=== PATIENT | male | born 1950 | race Caucasian/White ===

== ENCOUNTER → 2020-06-07 11:28 | Outpatient (BNVA) | payer MEDICARE, SELFPAY | PROVIDERS: PCP Internal Medicine; Referring Provider Internal Medicine; Visit Provider Urology | DX: Z76.89 Persons encountering health services in other specified circumstances (principal) | CPT/HCPCS: Q3014 ==

== ENCOUNTER → 2020-09-07 11:28 | Outpatient (BNVA) | payer MEDICARE, SELFPAY | PROVIDERS: PCP Internal Medicine; Visit Provider Urology | DX: Z13.89 Encounter for screening for other disorder (principal) | CPT/HCPCS: Q3014 ==

== ENCOUNTER → 2020-12-08 13:58 | Outpatient (BNVA) | payer MEDICARE, SELFPAY | PROVIDERS: PCP Internal Medicine; Visit Provider Urology | DX: Z13.89 Encounter for screening for other disorder (principal) | CPT/HCPCS: Q3014 ==

== ENCOUNTER → 2021-03-09 13:51 | Outpatient (BNVA) | payer MEDICARE, SELFPAY | PROVIDERS: PCP Internal Medicine; Visit Provider Urology | DX: C61 Malignant neoplasm of prostate (principal) | CPT/HCPCS: Q3014 ==

== ENCOUNTER → 2021-06-09 11:38 | Outpatient (BNVA) | payer MEDICARE, SELFPAY | PROVIDERS: PCP Internal Medicine; Visit Provider Urology | DX: C61 Malignant neoplasm of prostate (principal) | CPT/HCPCS: Q3014 ==

== ENCOUNTER → 2021-10-06 11:26 | Outpatient (BNVA) | payer MEDICARE, SELFPAY | PROVIDERS: PCP Internal Medicine; Visit Provider Urology | DX: C61 Malignant neoplasm of prostate (principal) | CPT/HCPCS: Q3014 ==

== ENCOUNTER → 2022-02-06 13:36 | Outpatient (BNVA) | payer MEDICARE, SELFPAY | PROVIDERS: PCP Internal Medicine; Visit Provider Urology | DX: C61 Malignant neoplasm of prostate (principal) | CPT/HCPCS: Q3014 ==

== ENCOUNTER → 2022-06-05 13:06 | Outpatient (BNVA) | payer MEDICARE, SELFPAY | PROVIDERS: PCP Internal Medicine; Visit Provider Urology | DX: C61 Malignant neoplasm of prostate (principal) | CPT/HCPCS: Q3014 ==

== ENCOUNTER → 2022-10-04 08:31 | Outpatient (BNVA) | payer MEDICARE, SELFPAY | PROVIDERS: PCP Internal Medicine; Visit Provider Urology | DX: C61 Malignant neoplasm of prostate (principal) | CPT/HCPCS: Q3014 ==

== ENCOUNTER 2023-02-05 13:27 | Outpatient (AMB) | payer MEDICARE, SELFPAY ==
--- NOTE | 2023-02-05 13:28 | MHC.OFFVIS ---
Intake Intake Visit Reasons: 4M PSA(set) Intake Note: Patient is present for Telephone PSA Urology Med: None Antibiotic Allergy: None Blood Thinner: none Pharmacy: [facility] Allergies No Known Allergies Allergy (Verified 02/05/23 13:28) Medication List - Last Reconciled 02/05/23 by Trae Mckeon MD atorvastatin mg PO atorvastatin 20 mg PO DAILY escitalopram oxalate 10 mg PO DAILY levothyroxine 175 mcg PO DAILY metformin mg PO valsartan mg PO HPI HPI Comments History of Present Illness Details Zeeshan is a very pleasant male. He is a patient of Dr Rudd. He is seen for the following urologic conditions - prostate cancer Telemedicine evaluation 15 minute consultation Doximity adeel Video attempted PSA stabilization 08/16 PSA 0.8, 01/13 0.5 6m f/u PSA Has occasional urgency and frequency with diet triggers Prostate cancer: Grade 4, high risk. Initial therapy external beam radiation with hormones - 08/13 Prostate cancer was diagnosed 08/13 Dr Mckeon. Diagnosis was reached by needle biopsy, for elevated PSA, PSA at diagnosis 7.3 rise from 5.1 - 1 yr earlier The [place] grade is LMB , 4+4 = 8 20%, RMA , 3+3 = 6 10%, Total 30%/1200% = 2.5% Polaris evaluation 35 percentile for Group 4 TNM Classification of Malignant Tumours (TNM) T1c The D'Navi (NCCN) risk category is has 2 low risk features and 1 high risk features, group 4 Initial therapy included Primary treatment - EXBRT - completed February 2020 - with hormones and 18 months of finasteride - 09/10 GnRH 6 months, 03/03/2020 GnRH 45mg Eligard Imaging included 09/10 a bone scan NAD PSA values - 06/12 PSA 0.1, T< 3, 09/11 PSA 0.1, T < 3, 12/12 PSA <0.1, T 330, 03/14 PSA < 0.1 T 305, 06/13 <0.1 T 340, 09/12 0.1 T 321, 01/12 0.5, 06/14 0.5 PFSH Medical History Elevated PSA Surgical History H/O thyroidectomy Review of Systems Const All systems reviewed & are unremarkable except as noted in HPI and below Reports no additional complaints Resp Reports no additional complaints GI Reports no additional complaints Reports as per HPI Musc Reports no additional complaints Physical Exam Telemedicine evaluation Appropriate responses Regular breathing rate and rhythm HEENT Head: Yes normal to inspection Ears: hearing grossly normal bilaterally Eyes General: appearance normal, both eyes and all related structures Neck Neck: Yes normal visual inspection Chest Chest palpation & inspection: normal inspection of the chest Resp Effort & Inspection: normal respiratory effort and able to speak in complete sentences Assessment & Plan Assessment & Plan (1) Prostate cancer: Comment: 08/13 high-grade initial therapy external beam radiation with hormones 12m Code(s): C61 - Malignant neoplasm of prostate Plan Six month follow-up PSA Orders: Orders Prostate Specific Antigen 6 Months C61 - Malignant neoplasm of prostate Patient Instructions: Imaging studies, laboratory and physical exam results were discussed and reviewed in detail. No major barriers to patient understanding were identified. An opportunity to ask questions regarding the treatment plan was provided. All questions were answered. The patient expressed understanding and agreement with the above treatment plan. The patient is aware they should contact our office by phone for worsening of their current condition or the appearance of new urologic symptoms. Compliance is encouraged with any medications and followup testing that is ordered. It is a privilege to participate in the urologic care of your patient. If you have any questions or concerns regarding treatment for the above conditions, or other urologic issues, please do not hesitate to contact me. The office telephone contact is [phone]. This note is constructed using voice recognition software. While every effort has been made to ensure accuracy driver's education instructor errors may have been included. Yours sincerely, Dr Trae Mckeon MD, [facility] - Urology Providers of Expert, Compassionate Care for the Genitourinary System Telehealth Telehealth Location of provider rendering services: practice address Location of patient: address on file Patient Identification confirmed using: Name, : Yes Telehealth method: voice only Patient verbally consented to treatment: Yes Patient verbally consented to billing insurance company: Yes Patient informed of any privacy concerns related to visit: Yes Coding Level of Care Code Tele Est Pt Level 3 (94879) Diagnoses Prostate cancer C61
== END 2023-02-05 16:11 | disposition home or self-care (01) ==
LOC: HO.HUSH 13:27
PROVIDERS: PCP Internal Medicine; Visit Provider Urology
DX: C61 Malignant neoplasm of prostate (principal)
CPT/HCPCS: 99442

== ENCOUNTER → 2023-02-05 13:27 | Outpatient (BNVA) | payer MEDICARE, SELFPAY | PROVIDERS: PCP Internal Medicine; Visit Provider Urology ==

== ENCOUNTER 2023-09-04 12:47 | Outpatient (AMB) | payer MEDICARE, SELFPAY ==
--- NOTE | 2023-09-04 12:47 | A.OFFVIS_ITS ---
Intake Intake Visit Reasons: 6M PSA(set)Confirmed Intake Note: Patient presents today for a telehealth follow-up on PSA Meds- None Allergies to Antibiotic- No Known Allergies Blood Thinner- None Astronomy Instructor Required: No Allergies No Known Allergies Allergy (Verified 09/04/23 12:48) Medication List - Last Reconciled 09/04/23 by Trae Mckeon MD atorvastatin mg PO atorvastatin 20 mg PO DAILY escitalopram oxalate 10 mg PO DAILY levothyroxine 175 mcg PO DAILY metformin mg PO valsartan mg PO HPI HPI Comments History of Present Illness Details Zeeshan is a very pleasant male. He is a patient of Dr Rudd. He is seen for the following urologic conditions - prostate cancer Telemedicine evaluation 15 minute consultation DoximInMyShow adeel Video attempted PSA continues to remain low 08/16 PSA 0.8, 01/13 0.5, 08/17 0.8 6m f/u PSA Has occasional urgency and frequency with diet triggers - otherwise stable Nocturia x1 Prostate cancer: Grade 4, high risk. Initial therapy external beam radiation with hormones - 08/13 Prostate cancer was diagnosed 08/13 Dr Mckeon. Diagnosis was reached by needle biopsy, for elevated PSA, PSA at diagnosis 7.3 rise from 5.1 - 1 yr earlier The [place] grade is LMB , 4+4 = 8 20%, RMA , 3+3 = 6 10%, Total 30%/1200% = 2.5% Polaris evaluation 35 percentile for Group 4 TNM Classification of Malignant Tumours (TNM) T1c The D'Navi (NCCN) risk category is has 2 low risk features and 1 high risk features, group 4 Initial therapy included Primary treatment - EXBRT - completed February 2020 - wit h hormones and 18 months of finasteride - 09/10 GnRH 6 months, 03/03/2020 GnRH 45m g Eligard Imaging included 09/10 a bone scan NAD PSA values - 06/12 PSA 0.1, T< 3, 09/11 PSA 0.1, T < 3, 12/12 PSA <0.1, T 330, 9/ PSA < 0.1 T 305, 12/ <0.1 T 340, 3/ 0.1 T 321, 7 0.5, 12 0.5 PFSH Medical History Elevated PSA Surgical History H/O thyroidectomy Review of Systems Const All systems reviewed & are unremarkable except as noted in HPI and below Reports no additional complaints Resp Reports no additional complaints GI Reports no additional complaints Reports as per HPI Musc Reports no additional complaints Physical Exam Telemedicine evaluation Appropriate responses Regular breathing rate and rhythm HEENT Head: Yes normal to inspection Ears: hearing grossly normal bilaterally Eyes General: appearance normal, both eyes and all related structures Neck Neck: Yes normal visual inspection Chest Chest palpation & inspection: normal inspection of the chest Resp Effort & Inspection: normal respiratory effort and able to speak in complete sentences Assessment & Plan Assessment & Plan (1) Prostate cancer: Comment: 08/13 high-grade initial therapy external beam radiation with hormones 12m Code(s): C61 - Malignant neoplasm of prostate (2) BPH loc w urin obs/LUTS: Code(s): N40.1 - Benign prostatic hyperplasia with lower urinary tract symptoms Plan 6m f/u PSA Patient Instructions: Imaging studies, laboratory and physical exam results were discussed and reviewed in detail. No major barriers to patient understanding were identified. An opportunity to ask questions regarding the treatment plan was provided. All questions were answered. The patient expressed understanding and agreement with the above treatment plan. The patient is aware they should contact our office by phone for worsening of their current condition or the appearance of new urologic symptoms. Compliance is encouraged with any medications and followup testing that is ordered. It is a privilege to participate in the urologic care of your patient. If you have any questions or concerns regarding treatment for the above conditions, or other urologic issues, please do not hesitate to contact me. The office telephone contact is [phone]. This note is constructed using voice recognition software. While every effort barger s been made to ensure accuracy mounted police officer errors may have been included. Yours sincerely, Dr Trae Mckeon MD, [facility] - Urology Providers of Expert, Compassionate Care for the Genitourinary System Telehealth Telehealth Location of provider rendering services: practice address Location of patient: address on file Patient Identification confirmed using: Name, : Yes Telehealth method: video Patient verbally consented to treatment: Yes Patient verbally consented to billing insurance company: Yes Patient informed of any privacy concerns related to visit: Yes Coding Level of Care Code Tele Est Pt Level 3 (93444) Diagnoses Prostate cancer C61 BPH loc w urin obs/LUTS N40.1
== END 2023-09-04 13:42 | disposition home or self-care (01) ==
LOC: HO.HUSH 12:47
PROVIDERS: PCP Internal Medicine; Visit Provider Urology
DX: C61 Malignant neoplasm of prostate (principal); N40.1 Benign prostatic hyperplasia with lower urinary tract symptoms
CPT/HCPCS: 99213

== ENCOUNTER → 2023-09-04 12:47 | Outpatient (BNVA) | payer MEDICARE, SELFPAY | PROVIDERS: PCP Internal Medicine; Visit Provider Urology ==

== ENCOUNTER 2023-12-24 13:22 | Outpatient (AMB) | payer MEDICARE, SELFPAY ==
--- NOTE | 2023-12-24 13:20 | A.OFFVIS_ITS ---
Intake Visit Reasons: 6m/PSA/Abnormal Cytology(set) Intake Note: Patient is present for 6m/PSA/Abnormal Cytology Urology Medication:none Antibiotic Allergy:none Blood Thinner:none General Merchandise Salesperson Required: No Allergies No Known Allergies Allergy (Verified 12/24/23 13:22) Medication List - Last Reconciled 12/24/23 by Trae Mckeon MD atorvastatin mg PO atorvastatin 20 mg PO DAILY escitalopram oxalate 10 mg PO DAILY levothyroxine 175 mcg PO DAILY metformin mg PO valsartan mg PO HPI Comments Details: Zeeshan is a very pleasant male. He is a patient of Dr Rudd. He is seen for the following urologic conditions - prostate cancer Telemedicine evaluation 15 minute consultation Doximity adeel Video attempted Found to have microscopic hematuria at PCP Plan for CT Urogram with cystoscopy 08/16 PSA 0.8, 01/13 0.5, 08/17 0.8 6m f/u PSA Has occasional urgency and frequency with diet triggers - otherwise stable Nocturia x1 Microscopic Hematuria Positive cytology No smoking history - occasional tobacco pipe No workplace exposures to organics Plan imaging and cystocopy Prostate cancer: Grade 4, high risk. Initial therapy external beam radiation with hormones - 08/13 Prostate cancer was diagnosed 08/13 Dr Mckeon. Diagnosis was reached by needle biopsy, for elevated PSA, PSA at diagnosis 7.3 rise from 5.1 - 1 yr earlier The Kumar grade is LMB , 4+4 = 8 20%, RMA , 3+3 = 6 10%, Total 30%/1200% = 2.5% Polaris evaluation 35 percentile for Group 4 TNM Classification of Malignant Tumours (TNM) T1c The D'Navi (NCCN) risk category is has 2 low risk features and 1 high risk features, group 4 Initial therapy included Primary treatment - EXBRT - completed February 2020 - with hormones and 18 months of finasteride - 09/10 GnRH 6 months, 03/03/2020 GnRH 45mg Eligard Imaging included 09/10 a bone scan NAD PSA values - 06/12 PSA 0.1, T< 3, 09/11 PSA 0.1, T < 3, 12/12 PSA <0.1, T 330, 03/14 PSA < 0.1 T 305, 06/13 <0.1 T 340, 09/12 0.1 T 321, 01/12 0.5, 06/14 0.5 PFSH Medical History Elevated PSA Surgical History H/O thyroidectomy Review of Systems Const All systems reviewed & are unremarkable except as noted in HPI and below Reports no additional complaints Resp Reports no additional complaints GI Reports no additional complaints Reports as per HPI Musc Reports no additional complaints Physical Exam Telemedicine evaluation Appropriate responses Regular breathing rate and rhythm HEENT Head: Yes normal to inspection Ears: hearing grossly normal bilaterally Eyes General: appearance normal, both eyes and all related structures Neck Neck: Yes normal visual inspection Chest Chest palpation & inspection: normal inspection of the chest Resp Effort & Inspection: normal respiratory effort and able to speak in complete sentences Telehealth Telehealth Telehealth Platform: Compliance Control Location of provider rendering services: practice address Location of patient: address on file Patient Identification confirmed using: Name, : Yes Telehealth method: video Patient verbally consented to treatment: Yes Patient verbally consented to billing insurance company: Yes Patient informed of any privacy concerns related to visit: Yes Minutes spent on Phone/Video with Pt.: 15 Assessment & Plan Assessment & Plan (1) Microscopic hematuria: Code(s): R31.29 - Other microscopic hematuria Category: Medical (2) Prostate cancer: Comment: 08/13 high-grade initial therapy external beam radiation with hormones 12m Code(s): C61 - Malignant neoplasm of prostate Category: Medical Plan CT Urogram with Cystoscopy Orders: Orders Blood Urea Nitrogen Today R31.29 - Other microscopic hematuria, R39.15 - Urgency of urination CT urogram Today R31.0 - Gross hematuria, R31.29 - Other microscopic hematuria Creatinine Today R31.29 - Other microscopic hematuria, R39.15 - Urgency of urination Patient Instructions: Imaging studies, laboratory and physical exam results were discussed and reviewed in detail. No major barriers to patient understanding were identified. An opportunity to ask questions regarding the treatment plan was provided. All questions were answered. The patient expressed understanding and agreement with the above treatment plan. The patient is aware they should contact our office by phone for worsening of their current condition or the appearance of new urologic symptoms. Compliance is encouraged with any medications and followup testing that is ordered. It is a privilege to participate in the urologic care of your patient. If you have any questions or concerns regarding treatment for the above conditions, or other urologic issues, please do not hesitate to contact me. The office telephone contact is [phone]. This note is constructed using voice recognition software. While every effort has been made to ensure accuracy city assessor errors may have been included. Yours sincerely, Dr Trae Mckeon MD, [facility] - Urology Providers of Expert, Compassionate Care for the Genitourinary System Coding Level of Care Code Tele Est Pt Level 4 (03057) Diagnoses Microscopic hematuria R31.29 Prostate cancer C61
== END 2023-12-24 14:47 | disposition home or self-care (01) ==
LOC: HO.HUSH 13:22
PROVIDERS: PCP Internal Medicine; Visit Provider Urology
DX: R31.29 Other microscopic hematuria (principal); C61 Malignant neoplasm of prostate
CPT/HCPCS: 99214

== ENCOUNTER → 2023-12-24 13:22 | Outpatient (BNVA) | payer MEDICARE, SELFPAY | PROVIDERS: PCP Internal Medicine; Visit Provider Urology ==

== ENCOUNTER 2024-03-25 09:59 | Outpatient (REF) | payer MEDICARE, SELFPAY | END 2024-03-25 10:00 | disposition home or self-care (01) | LOC: HO.LNP 09:59 | PROVIDERS: PCP Internal Medicine; Visit Provider Urology | DX: R31.29 Other microscopic hematuria (principal); C61 Malignant neoplasm of prostate; N30.40 Irradiation cystitis without hematuria | CPT/HCPCS: 52000; 81003; 88121; 99212 ==

== ENCOUNTER 2024-03-25 09:59 | Outpatient (AMB) | payer MEDICARE, SELFPAY ==
--- NOTE | 2024-03-25 10:25 | A.OFFVIS_ITS ---
Intake Visit Reasons: Cysto/CT(set) Intake Note: Patient is present for Cystoscopy/CT Urology Medication:NONE Antibiotic Allergy:NONE Blood Thinner:NONE Lot:[id number] Exp:04/27/27 Dinkey Engine Operator Required: No Allergies No Known Allergies Allergy (Verified 03/25/24 10:26) HPI Comments Details: Zeeshan is a very pleasant male. He is a patient of Dr Rudd. He is seen for the following urologic conditions - prostate cancer Found to have microscopic hematuria at PCP - cytology abnormal cells CT urogram - no urinary tract issues. 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 Initial therapy external beam radiation with hormones - 08/13 Prostate cancer was diagnosed 08/13 Dr Mckeon. Diagnosis was reached by needle biopsy, for elevated PSA, PSA at diagnosis 7.3 rise from 5.1 - 1 yr earlier The Kumar grade is LMB , 4+4 = 8 20%, RMA , 3+3 = 6 10%, Total 30%/1200% = 2.5% Polaris evaluation 35 percentile for Group 4 TNM Classification of Malignant Tumours (TNM) T1c The D'Navi (NCCN) risk category is has 2 low risk features and 1 high risk features, group 4 Initial therapy included Primary treatment - EXBRT - completed February 2020 - with hormones and 18 months of finasteride - 09/10 GnRH 6 months, 03/03/2020 GnRH 45mg Eligard Imaging included 09/10 a bone scan NAD PSA values - 06/12 PSA 0.1, T< 3, 09/11 PSA 0.1, T < 3, 12/12 PSA <0.1, T 330, 03/14 PSA < 0.1 T 305, 06/13 <0.1 T 340, 09/12 0.1 T 321, 01/12 0.5, 06/14 0.5 PFSH Medical History Elevated PSA Surgical History H/O thyroidectomy Review of Systems Const Denies chills and Denies fever(s) Card Reports no additional complaints and Denies syncope Resp Denies cough GI Denies abdominal pain and Denies heartburn Reports as per HPI and Denies change in libido Neuro Denies syncope Psych Denies change in libido Endo Denies change in libido Physical Exam Const General: cooperative, healthy appearing, comfortable and no acute distress Orientation/consciousness: patient oriented x3 HEENT Face and sinus: Yes normal facial exam Mouth: moist mucous membranes Neck Neck: Yes normal visual inspection, Yes full ROM and Yes trachea midline Chest Chest palpation & inspection: normal inspection of the chest Resp Effort & Inspection: normal respiratory effort, able to speak in complete sentences and no respiratory distress GI Inspection: Yes normal to inspection Back/Spine/Pelvis Cervical Spine: normal cervical lordosis Thoracic/Lumbar Spine: thoracic and lumbar spine normal to inspection Skin General skin exam: no rashes or lesions noted Neuro General: patient oriented x3, gait normal, tone normal and moves all extremities Extrem General: Yes normal to inspection and Yes capillary refill normal Office Procedures Cystoscopy Consent Discussed risk and benefit or proposed procedure with the patient. Information consent for procedure given to the patient. Discussed technical aspects, risks, benefits and alternatives in full. Addressed all of the patient's questions and concerns regarding the procedure. The patient demonstrated knowledge and understanding. They wish to proceed with this procedure. Preparation The patient was prepped in the usual manner. A computer artist was present and in the room. Genitalia was prepped with betadine solution in a sterile manner. Lidocaine Jelly 2% was placed into the urethra and 16Fr flexible Olympus cystoscope was inserted into the meatus after adequate lubrication. Procedure Cystoscopy performed using a disposable Urovue digital 16 Mozambican cystoscope. Meatus circumcised Urethra anterior and posterior urethra normal Prostatic Urethra unremarkable Bladder examination with retroflexion of cystoscope Bladder Orifices normal shape and position Bladder Capacity medium Trabeculations grade 1 Cellule Formation - Diverticulum Formation Mucosal Erythema radiation changes around lower 3rd of bladder consistent with radiation cystitis Bladder Tumor - [id number]-[id number] DISPOSABLE SCOPE URO-G FLEXIBLE SCOPE Procedure code (CPT) selection complete Office Meds lidocaine HCl 2 % mucosal jelly in applicator Performing Provider: Trae Mckeon MD Performing Location: [facility] [place] [facility] Administered by: Karthik Downing RN on 03/25/24 10:56 Dose Route Admin Location Dispensed Lot Number Expiration Date NDC Dip Tube Assembler Machine 10 mL intra-urethral 10 mL nitrofurantoin monohydrate/macrocrystals 100 mg capsule Performing Provider: Trae Mckeon MD Performing Location: [facility] [place] [facility] Administered by: Karthik Downing RN on 03/25/24 10:56 Dose Route Admin Location Dispensed Lot Number Expiration Date NDC Dip Tube Assembler Machine 100 mg PO 1 cap naproxen 500 mg tablet Performing Provider: Trae Mckeon MD Performing Location: [facility] [place] [facility] Administered by: Karthik Downing RN on 03/25/24 10:56 Dose Route Admin Location Dispensed Lot Number Expiration Date NDC Dip Tube Assembler Machine 500 mg PO 1 tab Results AMB Urinalysis, Automated UA Leukoctes 0 Corrine/uL Last Edit by JAXON Bird on 03/25/24 10:43 UA Nitrite Negative Last Edit by JAXON Bird on 03/25/24 10:43 UA Urobilinogen 0.2 mg/dL Last Edit by JAXON Bird on 03/25/24 10:4 3 UA Protein 0 mg/dL Last Edit by JAXON Bird on 03/25/24 10:43 UA pH 7.0 Last Edit by JAXON Bird on 03/25/24 10:43 UA Blood 25 Archie/uL Last Edit by JAXON Bird on 03/25/24 10:43 UA Specific [place] 1.010 Last Edit by JAXON Bird on 03/25/24 10: 43 UA Ketone Negative Last Edit by JAXON Bird on 03/25/24 10:43 UA Bilirubin 0 mg/dL Last Edit by JAXON Bird on 03/25/24 10:43 UA Glucose 0 mg/dL Last Edit by JAXON Bird on 03/25/24 10:43 Results Reviewed Results Reviewed: Laboratory Last Values Urine pH (Auto) 7.0 03/25/24 10:43 Specific [place] (Auto) 1.010 03/25/24 10:43 Urine Protein (Auto) 0 mg/dL 03/25/24 10:43 Glucose (UA)(Auto) 0 mg/dL 03/25/24 10:43 Urine Ketones (Auto) Negative 03/25/24 10:43 Urine Blood (Auto) 25 Archie/uL 03/25/24 10:43 Urine Nitrite (Auto) Negative 03/25/24 10:43 Urine Bilirubin (Auto) 0 mg/dL 03/25/24 10:43 Urine Urobilinogen (Auto) 0.2 mg/dL 03/25/24 10:43 Leukocyte Esterase (Auto) 0 Corrine/uL 03/25/24 10:43 Assessment & Plan Assessment & Plan (1) Radiation cystitis: Comment: Microscopic hematuria, CT urogram March 2024 negative Code(s): N30.40 - Irradiation cystitis without hematuria Category: Medical Plan Six-month follow-up PSA Fish bladder urine test Orders: Orders AMB Urinalysis Automated 03/25/24 Z13.9 - Encounter for screening, unspecified AMB Cystoscopy 03/25/24 C61 - Malignant neoplasm of prostate, N40.1 - Benign prostatic hyperplasia with lower urinary tract symptoms, R31.29 - Other microscopic hematuria Prostate Specific Antigen 6 Months C61 - Malignant neoplasm of prostate FISH Bladder Cancer 03/25/24 C61 - Malignant neoplasm of prostate, N30.40 - Irradiation cystitis without hematuria, R31.29 - Other microscopic hematuria Patient Instructions: Imaging studies, laboratory and physical exam results were discussed and reviewed in detail. No major barriers to patient understanding were identified. An opportunity to ask questions regarding the treatment plan was provided. All questions were answered. The patient expressed understanding and agreement with the above treatment plan. The patient is aware they should contact our office by phone for worsening of their current condition or the appearance of new urologic symptoms. Compliance is encouraged with any medications and followup testing that is ordered. It is a privilege to participate in the urologic care of your patient. If you have any questions or concerns regarding treatment for the above conditions, or other urologic issues, please do not hesitate to contact me. The office telephone contact is [phone]. This note is constructed using voice recognition software. While every effort has been made to ensure accuracy carton folder errors may have been included. Yours sincerely, Dr Trae Mckeon MD, [facility] - Urology Providers of Expert, Compassionate Care for the Genitourinary System Coding Level of Care Code Est Pt Level 3 (56131) Diagnoses Radiation cystitis N30.40 CPT Codes Cystoscopy - CPT: [id number] ([id number])
== END 2024-03-25 11:17 | disposition home or self-care (01) ==
PROVIDERS: PCP Internal Medicine; Visit Provider Urology
DX: R31.29 Other microscopic hematuria (principal); N40.1 Benign prostatic hyperplasia with lower urinary tract symptoms; C61 Malignant neoplasm of prostate; Z13.9 Encounter for screening, unspecified
CPT/HCPCS: 52000; 99213

== ENCOUNTER 2024-09-23 08:41 | Outpatient (AMB) | payer MEDICARE, SELFPAY ==
--- NOTE | 2024-09-23 08:41 | A.OFFVIS_ITS ---
Intake Visit Reasons: 6m/PSA Intake Note: Patient is present for 6M/PSA Urology Medication:NONE Antibiotic Allergy:NONE Blood Thinner:NONE Bus Escort Required: No Allergies No Known Allergies Allergy (Verified 09/23/24 08:42) HPI Comments Details: Zeeshan is a very pleasant male. He is a patient of Dr Rudd. 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 Initial therapy external beam radiation with hormones - 08/13 Prostate cancer was diagnosed 08/13 Dr Mckeon. Diagnosis was reached by needle biopsy, for elevated PSA, PSA at diagnosis 7.3 rise from 5.1 - 1 yr earlier The [place] grade is LMB , 4+4 = 8 20%, RMA , 3+3 = 6 10%, Total 30%/1200% = 2.5% Polaris evaluation 35 percentile for Group 4 TNM Classification of Malignant Tumours (TNM) T1c The [place] (NCCN) risk category is has 2 low risk features and 1 high risk features, group 4 Initial therapy included Primary treatment - EXBRT - completed February 2020 - with hormones and 18 months of finasteride - 09/10 GnRH 6 months, 03/03/2020 GnRH 45mg Eligard Imaging included 09/10 a bone scan NAD PSA values - 06/12 PSA 0.1, T< 3, 09/11 PSA 0.1, T < 3, 12/12 PSA <0.1, T 330, 03/14 PSA < 0.1 T 305, 06/13 <0.1 T 340, 09/12 0.1 T 321, 01/12 0.5, 06/14 0.5 PFSH Medical History Elevated PSA Surgical History H/O thyroidectomy Review of Systems Const All systems reviewed & are unremarkable except as noted in HPI and below Reports no additional complaints Resp Reports no additional complaints GI Reports no additional complaints Reports as per HPI Musc Reports no additional complaints Physical Exam Telemedicine evaluation Appropriate responses Regular breathing rate and rhythm HEENT Head: Yes normal to inspection Ears: hearing grossly normal bilaterally Eyes General: appearance normal, both eyes and all related structures Neck Neck: Yes normal visual inspection Chest Chest palpation & inspection: normal inspection of the chest Resp Effort & Inspection: normal respiratory effort and able to speak in complete sentences Telehealth Telehealth Location of provider rendering services: practice address Location of patient: address on file Patient Identification confirmed using: Name, : Yes Telehealth method: voice only Patient verbally consented to treatment: Yes Patient verbally consented to billing insurance company: Yes Patient informed of any privacy concerns related to visit: Yes Assessment & Plan Assessment & Plan (1) Prostate cancer: Comment: 08/13 high-grade initial therapy external beam radiation with hormones 12m Code(s): C61 - Malignant neoplasm of prostate Category: Medical (2) Radiation cystitis: Comment: Microscopic hematuria, CT urogram March 2024 negative Code(s): N30.40 - Irradiation cystitis without hematuria Category: Medical Plan check cysto and PSA in 6m Orders: Orders Prostate Specific Antigen 6 Months C61 - Malignant neoplasm of prostate Patient Instructions: This note is constructed using voice recognition software. While every effort has been made to ensure accuracy vocational counselor errors may have been included. Imaging studies, laboratory and physical exam results were discussed and reviewed in detail. No major barriers to patient understanding were identified. An opportunity to ask questions regarding the treatment plan was provided. All questions were answered. The patient expressed understanding and agreement with the above treatment plan. The patient is aware they should contact our office by phone for worsening of their current condition or the appearance of new urologic symptoms. Compliance is encouraged with any medications and followup testing that is ordered. It is a privilege to participate in the urologic care of your patient. If you have any questions or concerns regarding treatment for the above conditions, or other urologic issues, please do not hesitate to contact me. The office telephone contact is [phone]. Sincerely, Dr Trae Mckeon MD, [facility] - Urology Compassionate Specialist Care for the Genitourinary System Coding Level of Care Code Tele Est Pt Level 3 (13036) Complex EM visit Add On G2211 Diagnoses Prostate cancer C61 Radiation cystitis N30.40
--- OUTSIDE RECORDS SUMMARY | 2024-09-23 09:08 | XMS_ITS | Clinical Summary ---
Author Organization [facility] Address [address] [place] [address] Care Team Providers Care Director Of Dementia Operations Name Role Phone Babar Rudd MD Primary Care Provider [phone] Surgical History Surgery Date Site/Laterality Comments THYROIDECTOMY 2006 PROCEDURE:THYROIDECTOMY TONSILLECTOMY PROCEDURE:TONSILLECTOMY Medical History Medical History Date Comments Disease of thyroid gland DX:Dise ase of thyroid gland Elevated PSA DX:Elevated PSA Acoustic neuroma (CMS/HCC) 2016 DX:Ac oustic neuroma (HCC) Depression DX:Depression SCC (squamous cell carcinoma), scalp/neck DX:SCC (squamous cell carcinoma), scalp/neck Prostate CA (CMS/HCC) 2019 DX:Prostat e CA (HCC) Thyroid cancer (CMS/HCC) 2006 DX:Thyr oid cancer (HCC) Diabetes mellitus (CMS/HCC) DX:D iabetes mellitus (HCC) Hypertension DX:Hypertension Family History Medical History Relation Name Comments Colon cancer Father Cancer Mother unknown primary Relation Name Status Comments Father Mother Social History Tobacco Use Types Packs/Day Years Used Date Smoking Tobacco: Former Cigarettes Q uit: 10/03/1977 Smokeless Tobacco: Never Alcohol Use Standard Drinks/Week Comments Yes 14 (1 standard drink = 0.6 oz pu re alcohol) Sex and Gender Information Value Date Recorded Sex Assigned at Not on file Legal Sex Male 10:45 AM EST Gender Identity Not on file Sexual Orientation Not on file Obstetrics History Plan of Treatment Health Maintenance Due Date Last Done Comments DTaP,Tdap,and Td Vaccines (1 - Tdap) 11/12/1970 Pneumococcal Vaccine: 50+ Ye ars (1 of 2 - PCV) 11/12/1970 Zoster Vaccines (1 of 2) 11/12/1970 COVID-19 Vaccine (2 - Modern a risk series) 09/29/2020 09/01/2020 Abdominal Aortic Aneurysm (A AA) Screen 05/28/2022 Cholesterol Screening (Lipid Panel) 05/28/2022 Colorectal Cancer Screening: Colonoscopy 05/28/2022 Depression Screening 05/28/2022 Falls Risk Assessment 05/28/2022 Hepatitis C Screening 05/28/2022 Social Influencers of Health Screening 05/28/2022 Medicare Annual Wellness Visit 12/07/2023 12/06/2022 Influenza Vaccine (#1) 2024 RSV Immunization Adult Patie nts (1 - 1-dose 75+ series) 11/12/2026 HIB Vaccines Aged Out No longer eligi ble based on patient's age to complete this topic HPV Vaccines Aged Out No longer eligi ble based on patient's age to complete this topic Hepatitis A Vaccines Aged Out No long er eligible based on patient's age to complete this topic Hepatitis B Vaccines Aged Out No long er eligible based on patient's age to complete this topic IPV Vaccines Aged Out No longer eligi ble based on patient's age to complete this topic MMR Vaccines Aged Out No longer eligi ble based on patient's age to complete this topic Meningococcal ACWY Vaccine Aged Out N o longer eligible based on patient's age to complete this topic Meningococcal B Vacine Aged Out No lo nger eligible based on patient's age to complete this topic RSV Immunization Patients Un markus 20 months Aged Out No longer eligible b ased on patient's age to complete this topic Varicella Vaccines Aged Out No longer eligible based on patient's age to complete this topic Care Teams Director Of Dementia Operations Relationship Specialty Start Date End Date Babar Rudd MD [address] [place] [address] PCP - General Internal Medicine 04/11/16
--- OUTSIDE RECORDS SUMMARY | 2024-09-23 09:08 | XMS_ITS | Data Portability ---
Author Organization [facility] - [facility] Nico patel, CT_CTCMA_IM_01 BLOOMER Address [address] [place] [address] Care Team Providers Care Web Content Director Name Role Phone DELVIS MCKEON Urologist Assessment Encounter Date Assessment Date Assessment LastModified by Organization Details LastModified Time 12/06/2022 12/06/2022 Reminders 1. Have you reviewed all current prescriptions and noted which they have discontinued with the patient? Reviewed with patient 2. Have you asked the patient if they are experiencing any new or recurring issues with bladder control? Reviewed with patient 3. Have you asked the patient about their current physical fitness routine and goals? Reviewed with patient efierer Not available 12/06/2022 11:03:29 12/12/2023 12/12/2023 Reminders 1. Have you reviewed all current prescriptions and noted which they have discontinued with the patient? Reviewed with patient 2. Have you asked the patient if they are experiencing any new or recurring issues with bladder control? Reviewed with patient 3. Have you asked the patient about their current physical fitness routine and goals? Reviewed with patient CHAD NARAYAN HAS ONE AT HOME.-HE WILL CHECK IF RE EXP DATE AND CALL US [email or web address] Not available 12/12/2023 12:05:27 06/01/2024 06/01/2024 Refuses vaccines Not availab le 06/01/2024 12:05:23 Plan of Treatment Reminders Order Date Submit Date Provider Last Modified By Organization Details Last Modified Time Details Appointments AWV (Medicar e) 2024 09:30A M Marisol Saucedo MD Not available Not available Not available Lab glucose, fasting, fingerst ick, blood (point of care) [email or web address]_ctcma_im_01 [facility], [address], [address], [place], [address], 06/01/2024 11:59:25 HbA1c (hemoglo bin A1c), blood 2023 024 [facility]_ctcma_im_01 [facility], [address], [address], [place], [address], 06/01/2024 12:47:51 cytology , urine 2023 024 [facility], [address] , [place], [address], 01/09/2024 09:59:48 urinalys is, complete 2023 024 [facility], [address] , [place], [address], 01/09/2024 09:59:48 glucose, fasting, fingerst ick, blood (point of care) 2023 024 [place] [id number] Ct_ctcma_im_ [facility], [address], [address], [place], [address], 12/12/2023 10:02:23 lipid panel w/ direct LDL, serum 2023 024 [facility], [address], [place], [address], 01/09/2024 09:59:48 microalb umin/cre atinine, mass ratio, urine 2023 024 [facility], [address], [place], [address], 01/09/2024 09:59:48 urinalys is, dipstick 2023 024 [place] [address] Ct_ctcma_im_01 [facility], [address] [place] [address] Rd, [address], [place], [address], 12/12/2023 10:02:23 HbA1c (hemoglo bin A1c), blood 2022 023 [email or web address] [facility], [address], [address], [place], [address], 02/14/2023 08:47:07 microalb umin, urine 2022 023 [email or web address] [facility], [address], [address], [place], [address], 02/14/2023 08:47:07 BMP, serum or plasma 2022 023 [email or web address] [facility], [address], [address], [place], [address], 02/14/2023 08:47:07 noninvas bobby colorect al cancer DNA + occult blood screenin g, QL, stool 2022 023 [facility] (Cologuard Orders Only), [address], [address], [place], [address], 12/03/2023 16:12:35 urinalys is, dipstick 2022 023 [email or web address], [address], [address], [place], [address], 12/06/2022 10:45:06 Referral otolaryn gologist referral - Follow up acoustic neuroma Dr Sam 2023 024 [email or web address], [address], [address], [place], [address], 12/16/2023 12:20:41 Procedures None recorded . Surgeries None recorded . Imaging MRI, brain + internal auditory canal, w/wo contrast - Follow up acoustic neuroma. Contrast per radiolog ist. 2023 024 [email or web address] [facility], [address] [place] [address] , [place], [address], 06/30/2024 08:16:48 electroc michaelogra m 2023 024 [email or web address] In-Office Order, Internal Use Only DO Not Attach Compendium DO Not Attach Compendium, Do Not Delete/merge, [id number] 12/12/2023 10:02:23 Medication Orders None recorded . Patient TargetsNo targets recorded. Patient Instructions Encounter Date Encounter Id Patient Instructions Last Modified By Organization Details Last Modified Time 12/06/2022 [id number] well visit, over 65: care instructions efierer Not available 12/06/2022 10:45:06 preventing falls : care instructions efierer Not available 12/06/2022 10:45:06 advance directiv es: care instructions efierer Not available 12/06/2022 10:45:06 well visit, over 65: care instructions efierer Not available 12/06/2022 10:45:06 preventing falls : care instructions efierer Not available 12/06/2022 10:45:06 advance directiv es: care instructions efierer Not available 12/06/2022 10:45:06 12/12/2023 [id number] well visit, over 65: care instructions [email or web address] Not available 12/12/2023 10:02:23 preventing falls : care instructions Not available 12/12/2023 10:02:23 advance directiv es: care instructions [email or web address] Not available 12/12/2023 10:02:23 To promote good health please follow these recommendations: Diet, Physical Activity and Healthy Weight: -Eat a diet low in trans and saturated fats and high in fiber, fruits and vegetables -Take 6389-9024 mg of calcium through diet and supplements -Engage in regular physical activity and weight bearing exercise -Aim to achieve and maintain ideal body mass index Tobacco and Alcohol Use: -Don't smoke or use other tobacco products -Avoid excessive alcohol intake Medications: -If you use any medications (prescriptions, vsiv-ylp-urltlnj, supplements, herbal), always do so as directed by your health care provider -Avoid misuse of any substances in a manner that is not in accordance with appropriate use Safety: -Use seat belts whenever in the car -Use sunscreen regularly to reduce the risk of skin cancer -Test smoke detectors and CO detectors every 6 months -Remove loose rugs and use hand rails on steps and in bath Cognition: -Being intellectually engaged may benefit the brain. Lots of activities can keep your mind active. For example, read books and magazines. Play games. Take or teach a class. Learn a new skill or hobby. Work or volunteer. -People who engage in meaningful activities, like volunteering or hobbies, say they feel happier and healthier. Vaccinations: -Get your yearly influenza vaccine and follow all immunization recommendations outlined in your personal wellness plan. 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 History of acoustic neuroma Follow up acoustic neuroma Dr Sam Referring Physician: Marisol Saucedo, Internal Medicine, Encounter Date: 12/12/2023 Results Created Date Observation Date Name Description Value Unit Range Abnormal Flag Note LastModifiedBy Organization Detail LastModifiedTime 12/07/19 23 12/06/2022 urina lysis , dipst ick Leukocytes Negati ve Not Available Ct_ctcma_im _[address], [place], [address], 12/06/2022 10:42:53 12/07/19 23 12/06/2022 urina lysis , dipst ick Nitrite negati ve Not Available Ct_ctcma_im _0 [address], [place], [address], 12/06/2022 10:42:53 12/07/19 23 12/06/2022 urina lysis , dipst ick Urobilinogen Normal Not Available Ct_ct cma_im_0 [address], [place], [address], 12/06/2022 10:42:53 12/07/19 23 12/06/2022 urina lysis , dipst ick Protein Negati ve Not Available Ct_ctcma_im _[address], [place], [address], 12/06/2022 10:42:53 12/07/19 23 12/06/2022 urina lysis , dipst ick pH 7.0 Not Available Ct_ctcma_i m_0 [address], [place], [address], 12/06/2022 10:42:53 12/07/19 23 12/06/2022 urina lysis , dipst ick Blood Negati ve Not Available Ct_ctcma_im _0 [address], [place], [address], 12/06/2022 10:42:53 12/07/19 23 12/06/2022 urina lysis , dipst ick Ketone Negati ve Not Available Ct_ctcma_im _0 [address], [place], [address], 12/06/2022 10:42:53 12/07/19 23 12/06/2022 urina lysis , dipst ick Bilirubin Negati ve Not Available Ct_ctcma_im _[address], [place], [address], 12/06/2022 10:42:53 12/07/19 23 12/06/2022 urina lysis , dipst ick Glucose Negati ve Not Available Ct_ctcma_im _0 [address], [place], [address], 12/06/2022 10:42:53 12/07/19 23 12/06/2022 urina lysis , dipst ick Appearance Clear Not Available Ct_ctcm a_im_0 [address], [place], [address], 12/06/2022 10:42:53 12/07/19 23 12/06/2022 urina lysis , dipst ick Color Pale Yellow Not Available Ct_ctcma_im _0 [address], [place], [address], 12/06/2022 10:42:53 12/05/19 24 12/05/2023 TSH+F REE T4 TSH 1.090 uIU/m L 0.450- 4.500 Not Available [facility] ([facility]) [address] [place], [address], 12/06/2023 06:07:56 12/05/19 24 12/05/2023 TSH+F REE T4 T4,free(dire ct) 1.64 NG/dL 0.82-1 .77 Not Available [facility] ([facility]) [address] [place], [address], 12/06/2023 06:07:56 12/05/19 24 12/05/2023 CBC WITH DIFFE RENTI AL/PL ATELE T WBC 4.2 x10e3 /uL 3.4-10 .8 Not Available [facility] ([facility]) [address] [place], [address], 12/06/2023 06:07:56 12/05/19 24 12/05/2023 CBC WITH DIFFE RENTI AL/PL ATELE T RBC 4.81 x10e6 /uL 4.14-5 .80 Not Available [facility] ([facility]) [address] [place], [address], 12/06/2023 06:07:56 12/05/19 24 12/05/2023 CBC WITH DIFFE RENTI AL/PL ATELE T hemoglobin 13.7 g/dL 13.0-1 7.7 Not Available [facility] ([facility]) [address] [place], [address], 12/06/2023 06:07:56 12/05/19 24 12/05/2023 CBC WITH DIFFE RENTI AL/PL ATELE T hematocrit 43.5 % 37.5-5 1.0 Not Available [facility]) [address] [facility], [place], [address], 12/06/2023 06:07:56 12/05/19 24 12/05/2023 CBC WITH DIFFE RENTI AL/PL ATELE T MCV 90 fL 79-97 Not Available [facility] ([facility]) [address] [facility], [place], [address], 12/06/2023 06:07:56 12/05/19 24 12/05/2023 CBC WITH DIFFE RENTI AL/PL ATELE T MCH 28.5 pg 26.6-3 3.0 Not Available [facility]) [address] [facility], [place], [address], 12/06/2023 06:07:56 12/05/19 24 12/05/2023 CBC WITH DIFFE RENTI AL/PL ATELE T MCHC 31.5 g/dL 31.5-3 5.7 Not Available [facility] ([facility]) [address] [facility], [place], [address], 12/06/2023 06:07:56 12/05/19 24 12/05/2023 CBC WITH DIFFE RENTI AL/PL ATELE T RDW 12.6 % 11.6-1 5.4 Not Available [facility] ([facility]) [address] [place], [address], 12/06/2023 06:07:56 12/05/1912/05/2023 CBC WITH DIFFE RENTI AL/PL ATELE T platelets 292 x10e3 /uL 150-45 0 Not Available [facility]) [address] [place], [address], 12/06/2023 06:07:56 12/05/19 24 12/05/2023 CBC WITH DIFFE RENTI AL/PL ATELE T neutrophils 65 % not estab. Not Available [facility]) [address] [facility], [place], [address], 12/06/2023 06:07:56 12/05/19 24 12/05/2023 CBC WITH DIFFE RENTI AL/PL ATELE T lymphs 14 % not estab. Not Available [facility]) [address] [facility], [place], [address], 12/06/2023 06:07:56 12/05/19 24 12/05/2023 CBC WITH DIFFE RENTI AL/PL ATELE T monocytes 16 % not estab. Not Available [facility]) [address] [facility], [place], [address], 12/06/2023 06:07:56 12/05/19 24 12/05/2023 CBC WITH DIFFE RENTI AL/PL ATELE T eos 3 % not estab. Not Available [facility]) [address] [facility], [place], [address], 12/06/2023 06:07:56 12/05/19 24 12/05/2023 CBC WITH DIFFE RENTI AL/PL ATELE T basos 1 % not estab. Not Available [facility]) [address] [facility], [place], [address], 12/06/2023 06:07:56 12/05/19 24 12/05/2023 CBC WITH DIFFE RENTI AL/PL ATELE T immature cells PIPELINE SUPERINTENDENT Not Available [facility] ([facility] [address] [place], [address], 12/06/2023 06:07:56 12/05/19 24 12/05/2023 CBC WITH DIFFE RENTI AL/PL ATELE T neutrophils (absolute) 2.8 x10e3 /uL 1.4-7. 0 Not Available [facility] ([facility]) [address] [facility], [place], [address], 12/06/2023 06:07:56 12/05/19 24 12/05/2023 CBC WITH DIFFE RENTI AL/PL ATELE T lymphs (absolute) 0.6 x10e3 /uL 0.7-3. 1 below low normal Not Available [facility]) [address] [facility], [place], [address], 12/06/2023 06:07:56 12/05/19 24 12/05/2023 CBC WITH DIFFE RENTI AL/PL ATELE T monocytes(ab solute) 0.7 x10e3 /uL 0.1-0. 9 Not Available [facility] ([facility]) [address] [facility], [place], [address], 12/06/2023 06:07:56 12/05/19 24 12/05/2023 CBC WITH DIFFE RENTI AL/PL ATELE T eos (absolute) 0.1 x10e3 /uL 0.0-0. 4 Not Available [facility] ([facility]) [address] [facility], [place], [address], 12/06/2023 06:07:56 12/05/19 24 12/05/2023 CBC WITH DIFFE RENTI AL/PL ATELE T baso (absolute) 0.0 x10e3 /uL 0.0-0. 2 Not Available [facility] ([facility]) [address] [facility], [place], [address], 12/06/2023 06:07:56 12/05/19 24 12/05/2023 CBC WITH DIFFE RENTI AL/PL ATELE T immature granulocytes 1 % not estab. Not Available [facility]) [address] [facility], [place], [address], 12/06/2023 06:07:56 12/05/19 24 12/05/2023 CBC WITH DIFFE RENTI AL/PL ATELE T immature grans (abs) 0.0 x10e3 /uL 0.0-0. 1 Not Available [facility]) [address] [facility], [place], [address], 12/06/2023 06:07:56 12/05/19 24 12/05/2023 CBC WITH DIFFE RENTI AL/PL ATELE T NRBC PIPELINE SUPERINTENDENT Not Available [facility]) [address] [facility], [place], [address], 12/06/2023 06:07:56 12/05/19 24 12/05/2023 CBC WITH DIFFE RENTI AL/PL ATELE T hematology comments: PIPELINE SUPERINTENDENT Not Available [facility]) [address] [facility], [place], [address], 12/06/2023 06:07:56 12/05/19 24 12/05/2023 BASIC METAB OLIC PANEL (8) glucose 123 mg/dL 70-99 above high normal Not Available [facility]) [address] [place], [address], 12/06/2023 06:07:57 12/05/19 24 12/05/2023 BASIC METAB OLIC PANEL (8) BUN 13 mg/dL 8-27 Not Available [facility] [address] [place], [address], 12/06/2023 06:07:57 12/05/19 24 12/05/2023 BASIC METAB OLIC PANEL (8) creatinine 0.87 mg/dL 0.76-1 .27 Not Available [facility] ([facility]) [address] [place], [address], 12/06/2023 06:07:57 12/05/19 24 12/05/2023 BASIC METAB OLIC PANEL (8) eGFR 92 mL/mi n/1.7 3 >59 Not Available [facility]) [address] [facility], [place], [address], 12/06/2023 06:07:57 12/05/19 24 12/05/2023 BASIC METAB OLIC PANEL (8) BUN/creatini ne ratio 15 10-24 Not Available [facility] [address] [facility] [place], [address], 12/06/2023 06:07:57 12/05/19 24 12/05/2023 BASIC METAB OLIC PANEL (8) sodium 134 mmol/ L 134-14 4 Not Available [facility] [address] [facility] [place], [address], 12/06/2023 06:07:57 12/05/19 24 12/05/2023 BASIC METAB OLIC PANEL (8) potassium 5.0 mmol/ L 3.5-5. 2 Not Available [facility]) [address] [facility], [place], [address], 12/06/2023 06:07:57 12/05/19 24 12/05/2023 BASIC METAB OLIC PANEL (8) chloride 96 mmol/ L 96-106 Not Available [facility] [address] [facility] [place], [address], 12/06/2023 06:07:57 12/05/19 24 12/05/2023 BASIC METAB OLIC PANEL (8) carbon dioxide, total 24 mmol/ L 20-29 Not Available [facility] [address] [facility] [place], [address], 12/06/2023 06:07:57 12/05/19 24 12/05/2023 BASIC METAB OLIC PANEL (8) calcium 9.0 mg/dL 8.6-10 .2 Not Available [facility]) [address] [facility] [place], [address], 12/06/2023 06:07:57 12/12/19 24 12/16/2023 [facility] NONGY N CYTO cprpt <<NOTE >> Patie nt Name: LINDA STORY MR#: [id number] Colle cted Date: 2023 Repor tyree Date: 2023 Speci men #[id number] Final Diagn osis Urine , 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 Comme nt: The above diagn ostic categ ory ([facility] ) is from [facility] Urina ry Cytol ogy, and is in keepi ng with the ongo ng effor t for utili zatio n of stand ardiz ed diagn ostic termi nolog y in urine cytol ogy.* *[facility] Urina [facility] Cytol ogy. Rajwinder villarreal, Miranda swenson, Seferino Go cz; 2016. Clini alba Diagn osis R31.2 9; micro scopi c hemat uria Sourc e: A: Urine NOS Macro scopi c Descr iptio n Recei rhonda: 50cc clear yello w fresh fluid for ThinP rep. Ida ctron icall y Rufina d Out Tracie Mata M.D. Test Perfo rmed by: [facility] [address] [facility] [place], [facility] ord, [facility] [place] [address] [address] M. Ritesh alvarez M.D., Dire tor [phone] Not Available [facility] [address] [place], [address], 12/16/2023 16:48:00 12/12/19 24 12/12/2023 urina lysis , dipst ick Leukocytes Negati ve Not Available Ct_ctcma_im _0 [address], [place], [address], 12/12/2023 07:55:09 12/12/19 24 12/12/2023 urina lysis , dipst ick Nitrite negati ve Not Available Ct_ctcma_im _0 [address], [place], [address], 12/12/2023 07:55:09 12/12/19 24 12/12/2023 urina lysis , dipst ick Urobilinogen Normal Not Available Ct_ct cma_im_0 [address], [place], [address], 12/12/2023 07:55:09 12/12/19 24 12/12/2023 urina lysis , dipst ick Protein Negati ve Not Available Ct_ctcma_im _0 [address], [place], [address], 12/12/2023 07:55:09 12/12/19 24 12/12/2023 urina lysis , dipst ick pH 6.0 Not Available Ct_ctcma_i m_0 [address], [place], [address], 12/12/2023 07:55:09 12/12/19 24 12/12/2023 urina lysis , dipst ick Blood Modera te Not Available Ct_ctcma_im _[address], [place], [address], 12/12/2023 07:55:09 12/12/19 24 12/12/2023 urina lysis , dipst ick Specific [place] 1.010 Not Available Ct_ctc ma_im_0 [address], [place], [address], 12/12/2023 07:55:09 12/12/19 24 12/12/2023 urina lysis , dipst ick Ketone Negati ve Not Available Ct_ctcma_im _[address], [place], [address], 12/12/2023 07:55:09 12/12/19 24 12/12/2023 urina lysis , dipst ick Bilirubin Negati ve Not Available Ct_ctcma_im _0 [address], [place], [address], 12/12/2023 07:55:09 12/12/19 24 12/12/2023 urina lysis , dipst ick Glucose Negati ve Not Available Ct_ctcma_im _0 [address], [place], [address], 12/12/2023 07:55:09 12/12/19 24 12/12/2023 urina lysis , dipst ick Appearance Clear Not Available Ct_ctcm a_im_0 [address], [place], [address], 12/12/2023 07:55:09 12/12/19 24 12/12/2023 urina lysis , dipst ick Color Yellow Not Available Ct_ctcma_i m_0 [address], [place], [address], 12/12/2023 07:55:09 12/12/19 24 12/12/2023 gluco se, fasti ng, finge rstic k, blood (poin t of care) glucose 94 mg/dL 65-99 Not Available Ct_ctcma_i m_0 [address], [place], [address], 12/12/2023 08:48:46 12/19/19 24 12/19/2023 COLOG UARD cologuard result reportable NEGATI VE negati ve normal NEGAT BOBBY TEST RESUL T. A negat bobby Colog uard resul t indic ates a low likel ihood that a color ectal cance r (CRC) or advan malcolm adeno ma (kristy omato us polyp s with more advan malcolm pre-m align ant featu res) is prese nt. The [facility] e that a perso n with a negat bobby Colog uard test has a color ectal cance r is less than 1 in 1500 (nega tive predi ctive value >99.9 %) or has an advan malcolm adeno ma is less than 5.3% (nega tive predi ctive value 94.7% ). These data are based on a prosp ectiv e cross -sect ional study of 10,00 0 indiv idual s at [place] [facility] risk for color ectal cance r who were scree amrk with both Colog uard and colon oscop y. (Sada Jane. et al, N Engl J Med 2014; 370(1 4):12 86-12 97) The naina l value (refe rence range ) for this assay is negat bobby. COLOG UARD RE-SC REENI NG RECOM MENDA TION: Perio dic color ectal cance r scree sp is an impor tant part of preve ntive healt hcare for asymp tomat ic indiv idual s at [place] risk for color ectal cance r. Follo wing a negat bobby Colog uard resul t, the Ameri can Cance r Socie ty and U.S. Multi -Soci ety Task Force scree sp guide lines recom mend a Colog uard re-sc reeni ng inter jesus of 3 years . Refer ences : Ameri can Cance r Socie ty Guide line for Color ectal Cance r Scree sp: https ://sabra w.can cer.o rg/ca ncer/ colon -rect al-ca ncer/ detec tion- diagn osis- stagi ng/ac s-rec ommen datio ns.ht ml.; Ricardo CASTILLO, Subha BOWMAN, Nawaf AVILEZ, Color ectal Cance r Scree sp: Recom menda tions for Physi cians and Patie nts from the U.S. Multi -Soci ety Task Force on Color ectal Cance r Jose Alberto snowden , Arias reyes rolog y 2017; 112:1 016-1 030. TEST DESCR IPTIO N: [place] site algor ithmi c jefferson sis of stool DNA-b iofrancesco kers with hemog lobin immun oassa y. Quant itati ve value s of indiv idual bioma rkers are not repor table and are not assoc iated with indiv idual bioma rker resul t refer ence range s. Colog uard is inten ded for color ectal cance r scree sp of adult s of eithe r sex, 45 years or older , who are at [facility] for color ectal cance r (CRC) . Colog uard has been appro rhonda for use by the U.S. FDA. The perfo rmanc e of Colog uard was estab lishe d in a cross secti onal study of [facility] adult s aged 50-84 . Colog uard perfo rmanc e in patie nts ages 45 to 49 years was estim ated by sub-g roup jefferson sis of near- age group s. Colon oscop ies perfo rmed for a posit bobby resul t may find as the most clini moses signi fican t lesio n: color ectal cance r [4.0% ], advan malcolm adeno ma (incl uding sessi le bárbara tyree polyp s great er than or equal to 1cm diame ter) [20%] or non- advan malcolm adeno ma [31%] ; or no color ectal neopl manuelito [45%] . These estim ates are deriv ed from a prosp ectiv e cross -sect ional scree sp study of ,00 0 indiv idual s at [facility] risk for color ectal cance r who were scree mark with both Colog uard and colon oscop y. (Sada Donohue et al, N Engl J Med 2014; 370(1 4):12 86-12 97.) Colog uard may produ ce a false negat bobby or false posit bobby resul t (no color ectal cance r or preca ncero us polyp prese nt at colon oscop y follo w up). A negat bobby Colog uard test resul t does not guara ntee the absen ce of CRC or advan malcolm adeno ma (pre- cance r). The curre nt Colog uard scree sp inter jesus is every 3 years . (Jung fink Cance r Socie ty and U.S. Multi -Soci ety Task Force ). Colog uard perfo rmanc e data in a 10,00 0 patie nt pivot al study using colon oscop y as the refer ence metho d can be acces sed at the follo wing locat ion: www.e xactl abs.c om/re sults . Addit ional descr iptio n of the Colog uard test proce ss, warni ngs and preca ution s can be found at www.c ologu matthew.c om. Not Available [facility] (Cologuard Orders Only) [address], [place], [address], 12/24/2023 21:10:39 04/15/2004/15/2024 BASIC METAB OLIC PANEL (8) glucose 95 mg/dL 70-99 normal Not Available [facility]) [address] [place], [address], 04/21/2024 14:06:35 04/15/20 24 04/15/2024 BASIC METAB OLIC PANEL (8) BUN 19 mg/dL 8-27 normal Not Available [facility]) [address] [place], [address], 04/21/2024 14:06:35 04/15/2004/15/2024 BASIC METAB OLIC PANEL (8) creatinine 0.89 mg/dL 0.76-1 .27 normal Not Available [facility] ([facility]) [address] [place], [address], 04/21/2024 14:06:35 04/15/20 24 04/15/2024 BASIC METAB OLIC PANEL (8) eGFR 91 mL/mi n/1.7 3 >59 normal Not Available [facility] ([facility]) [address] [place], [address], 04/21/2024 14:06:35 04/15/2004/15/2024 BASIC METAB OLIC PANEL (8) BUN/creatini ne ratio 21 10-24 normal Not Available [facility] ([facility]) [address], [place], [address], 04/21/2024 14:06:35 04/15/2004/15/2024 BASIC METAB OLIC PANEL (8) sodium 131 mmol/ L 134-14 4 below low normal Not Available [facility] ([facility]) [address], [place], [address], 04/21/2024 14:06:35 04/15/2004/15/2024 BASIC METAB OLIC PANEL (8) potassium 4.5 mmol/ L 3.5-5. 2 normal Not Available [facility] ([facility]) [address] [facility], [place], [address], 04/21/2024 14:06:35 04/15/2004/15/2024 BASIC METAB OLIC PANEL (8) chloride 93 mmol/ L 96-106 below low normal Not Available [facility] ([facility]) [address] [facility], [place], [address], 04/21/2024 14:06:35 04/15/2004/15/2024 BASIC METAB OLIC PANEL (8) carbon dioxide, total 25 mmol/ L 20-29 normal Not Available [facility] ([facility]) [address] [facility], [place], [address], 04/21/2024 14:06:35 04/15/2004/15/2024 BASIC METAB OLIC PANEL (8) calcium 9.1 mg/dL 8.6-10 .2 normal Not Available [facility] ([facility]) [address] [facility], [place], [address], 04/21/2024 14:06:35 04/15/2004/20/2024 RENIN ACTIV ITY, PLASM A renin activity, plasma 4.783 NG/mL /HR 0.167- 5.380 Not Available [facility] ([facility]) [address] [place], [address], 04/21/2024 14:06:36 04/15/2004/21/2024 ALDOS DEBORAH E LCMS, SERUM aldosterone 15.9 NG/dL 0.0-30 .0 Not Available [facility] ([facility]) [address] [place], [address], 04/21/2024 14:06:37 04/15/2004/16/2024 CORTI LEIGH ANN - AM cortisol - AM 9.1 ug/dL 6.2-19 .4 Not Available [facility] ([facility]) [address] [place], [address], 04/21/2024 14:06:37 05/08/2005/09/2024 BASIC METAB OLIC PANEL (7) glucose 135 mg/dL 70-99 above high normal Not Available [facility] ([facility]) [address] [place], [address], 05/09/2024 06:07:55 05/08/20 24 05/09/2024 BASIC METAB OLIC PANEL (7) BUN 22 mg/dL 8-27 normal Not Available [facility] ([facility]) [address] [place], [address], 05/09/2024 06:07:55 05/08/2005/09/2024 BASIC METAB OLIC PANEL (7) creatinine 0.90 mg/dL 0.76-1 .27 normal Not Available [facility] ([facility]) [address] [place], [address], 05/09/2024 06:07:55 05/08/20 24 05/09/2024 BASIC METAB OLIC PANEL (7) eGFR 91 mL/mi n/1.7 3 >59 normal Not Available [facility] ([facility]) [address] [facility], [place], [address], 05/09/2024 06:07:55 05/08/20 24 05/09/2024 BASIC METAB OLIC PANEL (7) BUN/creatini ne ratio 24 10-24 normal Not Available [facility] ([facility]) [address] [facility], [place], [address], 05/09/2024 06:07:55 05/08/20 24 05/09/2024 BASIC METAB OLIC PANEL (7) sodium 134 mmol/ L 134-14 4 normal Not Available [facility] ([facility]) [address] [facility], [place], [address], 05/09/2024 06:07:55 05/08/20 24 05/09/2024 BASIC METAB OLIC PANEL (7) potassium 4.5 mmol/ L 3.5-5. 2 normal Not Available [facility] ([facility]) [address] [facility], [place], [address], 05/09/2024 06:07:55 05/08/2005/09/2024 BASIC METAB OLIC PANEL (7) chloride 98 mmol/ L 96-106 normal Not Available [facility] ([facility]) [address] [facility], [place], [address], 05/09/2024 06:07:55 05/08/20 24 05/09/2024 BASIC METAB OLIC PANEL (7) carbon dioxide, total 23 mmol/ L 20-29 normal Not Available [facility] ([place] [facility]) [address] [place], [address], 05/09/2024 06:07:55 06/01/20 24 06/01/2024 HbA1c (hemo globi n A1c), blood A1c 6.2 Not [address] [facility], [place], [address], 06/01/2024 11:59:04 06/01/20 24 06/01/2024 gluco se, fasti alida, carlos rswilfredo k, blood (poin t of care) glucose 93 mg/dL 65-99 Not Available [facility] [address], [place], [address], 06/01/2024 11:33:56 12/06/19 23 09/30/2020 elect rocar diogr am No observ ation record ed. [email or web address] Not Available 2022 14:30:53 12/06/19 23 11/29/2021 elect rocar diogr am No observ ation record ed. Not Available 2022 14:32:37 12/21/19 23 12/06/2022 elect rocar diogr am No observ ation record ed. Not Available 2022 07:47:17 12/12/19 24 12/12/2023 elect rocar diogr am No observ ation record ed. [email or web address] In-Office Order Internal Use Only DO Not Attach Compendium DO Not Attach Compendium, Do Not Delete/merge, [id number] 12/12/2023 09:08:32 03/06/20 24 01/23/2024 CT, urogr am EXAMIN ATION: CT UROGRA M WITHOU T AND WITH CONTRA ST [facility]IN[facility] AL INFORM ATION: Gross Hematu yohannes; Other Micros copic Hematu yohannes. COMPAR PHILIP: None availa ble. TECHNI QUE: Helica l scanni ng was perfor med with collim ation throug h the abdome n and pelvis precon trast. Helica l scanni ng was then repeat ed with submil limete r collim ation throug h the abdome n and pelvis in the pyelog porfirio phase with use of 100 mL of Omnipa que [address] Sagitt al and kessler l 2-D recons tructi ons were obtain ed. Multip le additi onal 3-D volume render ed images were obtain ed of the kidney s and collec ting system s on an indepe ndent workst ation under concur rent superv ision. This CT examin ation was perfor med using dose optimi zation techni ques as approp luís guerrero includ ing the follow ing: *Autom ated exposu re contro l *Adjus tment of mA and/or kV accord ing to patien t size (this includ es techni ques or standa rdized protoc ols for target ed exams where dose is matche d to indica tion/r raymon for exam; i.e. extrem ities or head) *Use of iterat bobby recons tructi on techni que DLP: 559.28 mGy-cm FINDIN GS: LUNG BASES: Emphys ematou s change s are seen. Left basila r scarri ng is noted. LIVER, GALLBL ADDER, AND BILIAR Y TREE: The liver is normal in size, shape, and attenu ation. No focal hepati c lesion or biliar y ductal dilata tion is presen t. The gallbl adder is unrema rkable with no eviden ce of radiop aque gallst ones, gallbl adder wall thicke sp, or obviou s perich olecys tic inflam matory change s. PANCRE : Unrema rkable SPLEEN : Unrema rkable ADRENA L GLANDS : There is modera te diffus e thicke sp of the left adrena l gland. KIDNEY S AND URETER S: Specif ic attent ion was given to the kidney s. The right kidney measur es 12.0 cm in size and the left kidney measur es 10.4 cm in size. The kidney s are normal in size, shape, and attenu ation. No hydron ephros is, hydrou reter, or calcul i seen. No perine phric strand ing. There is a 1.4 cm hypera ttenua ting cyst at the upper pole of the right kidney . Multip le benign cysts are presen t in the left kidney the larges t at the lower pole measur ing 3.7 cm. No obviou s mass lesion or fillin g defect is seen in the collec ting system s or ureter s. BLADDE R: Unrema rkable GASTRO INTEST INAL TRACT: The small and large bowel are unrema rkable . The append ix is unrema rkable . ABDOMI NAL WALL: No signif icant hernia is apprec iated. LYMPHO VASCUL AR STRUCT URES: No lympha denopa thy. Calcif ic athero sclero tic change s are presen t in the aorta and iliofe moral vessel s. There is no eviden ce of an abdomi nal aortic aneury sm. . PELVIC VISCER A: Prosta te is of normal size. Fiduci al marker s are presen t. Semina l vesicl es appear normal . OSSEOU S STRUCT URES: There is a compre ssion fractu re of the superi or endpla te of L5. IMPRES JIL: 1. A cause for the patien ts gross hematu yohannes has not been found. 2. Incide ntal note made of bilate ral renal cysts which are benign and need no additi onal follow . 3. Incide ntal note made of emphys pamela, modera te thicke sp of the left adrena l gland, compre ssion fractu re superi or endpla te L5. Electr onical ly signed by: Selwyn hanson MD 2023 12:13 PM EDT RP Workst ation: [id number] Thank you for referr ing your patien t to us, Selwyn hanson MD [phone] (Elect sonia chan Signed - 2023 12:13) Copy: MARISOL SAUCEDO MD REILLY S [facility] IELD- [address] [facility] E [facility] [address] [facility] [address] [place] [address] [phone] PATIEN T , [email or web address] [facility] ([facility]) [address] [facility] [address], [place], [address], 04/01/2024 16:07:40 Result Notes None recorded. Problems Name Problem SNOMED Code Status Onset Date Resolution Date Notes Provider Name and Address Organization Details Recorded Time Benign essential hypertens ion 0355140 Active 2022 Solange Crow [facility], [place] - [facility] 3 10:22:26 Hyperchol esterolem ia 06152570 Active 2022 Sol[facility] Crow null[facility] 3 10:22:53 Acoustic neuroma 432061887 Active 2022 Babar Rudd MD [address] [place] [address], [phone] , [place] [facility] 3 20:07:14 Type 2 diabetes mellitus 67346600 Active 2022 Babar Rudd MD [address] [place] [address], [phone] , [place] [facility] [place] 3 20:07:36 Microscop ic hematuria 679953114 Active 2023 Marisol Saucedo MD [address] [place] [address], [phone] , [place] [facility] [place] 4 16:27:57 Adrenal hyperplas ia 402852075 Active 2023 Marisol Saucedo MD [address] [place] [address], [phone] , [place] [facility] [place] 4 16:07:53 Disorder of adrenal gland 13960973 Active 2023 Marisol Saucedo MD [address] [place] [address], [phone] , [place] - [facility] 4 10:27:33 Hyponatre noemí 70208903 Active 2023 Marisol Saucedo MD [address] [place] [address], [phone] , [place] [facility] [place] 4 09:58:45 Renal disorder due to type 2 diabetes mellitus 520172420 Active 2023 Marisol Saucedo MD [address] [place] [address], [phone] , [place] - [place] [facility] 4 15:14:23 Malignant tumor of prostate 629768168 Active 2019 Prostate cancer Not Available [facility] 3 19:10:24 Squamous cell carcinoma of skin 544467516 Active 2020 Recurrent squamous cell carcinoma of skin Not Available [facility] 19:10:24 Problem Notes None recorded. Procedures Surgical History Date Name Laterality Status Provider Name and Address Organization Details Recorded Time 12/12/19 24 Advance Care Planning Consultation completed Annika Pedro CT - [facility] 12/12/2023 07:54:47 12/12/19 24 AWV - safety evaluation completed [facility] CT - [facility] 12/12/2023 07:54:47 12/12/19 24 AWV - male prevention plan completed [facility] CT - [facility] 12/12/2023 07:54:47 12/07/19 23 Advance Care Planning Consultation completed Babar Rudd MD [address] [place] [address], [address] [place] [address], [phone], CT - [facility] 12/06/2022 10:38:16 12/07/19 23 AWV - safety evaluation completed Babar Rudd MD [address] [place] [address], [address] [place] [address], [phone], [place] - [facility] 12/06/2022 10:38:16 12/07/19 23 AWV - male prevention plan completed Babar Rudd MD [address] [place] [address], [address] [place] [address], [phone], [place] - [facility] 12/06/2022 11:08:51 06/24/19 07 thyroidectomy completed Solange Crow CT - CT [facility] 12/06/2022 10:30:20 Prostate Surgery completed Solange Crow CT - CT [facility] 12/06/2022 10:30:01 Imaging Results Imaging Date Name Status LastModified by Organization Details LastModified Time 09/30/2020 electrocardiogram completed [email or web address] Informa tion not available 12/05/2022 14:30:53 11/29/2021 electrocardiogram completed [email or web address] Informa tion not available 12/05/2022 14:32:37 12/06/2022 electrocardiogram completed [email or web address] Informa tion not available 12/20/2022 07:47:17 12/12/2023 electrocardiogram completed In-Offi ce Order Internal Use Only DO Not Attach Compendium DO Not Attach Compendium, Do Not Delete/merge, [id number] 12/12/2023 09:08:32 01/23/2024 CT, urogram completed [email or web address] [facility] ([facility]) [address] [facility] [address], [place], [address], 04/01/2024 16:07:40 Procedure Notes None recorded. Medical Equipment None Reported. Allergies No known drug allergies Medications Name Sig Start Date Stop Date Status Note LastModified by Organization Details LastModified Time metformin 500 mg tablet TAKE ONE TABLET BY MOUTH ONCE DAILY 2023 active Not Available Not Available Not Avai lable levothyroxi ne 175 mcg tablet TAKE ONE TABLET BY MOUTH ONCE DAILY 2023 active Not Available Not Available Not Avai lable bicalutamid e 50 mg tablet 02/04 completed Not Available Not Available Not Available atorvastati n 80 mg tablet 12/06 completed Not Available Not Available Not Available nystatin 100,000 unit/mL oral suspension Take 5 mL (500,000 Units total) by mouth 4 (four) times a day. 12/06 completed Not Available Not Available Not Available cefuroxime axetil 250 mg tablet Take 1 tablet (250 mg total) by mouth 2 (two) times a day. Start 2 days prior to Prostate Ultrasoun d 12/23 completed Not Available Not Available Not Available atorvastati n 20 mg tablet TAKE ONE TABLET BY MOUTH ONCE DAILY 2023 active Not Available Not Available Not Avai lable amlodipine 5 mg tablet TAKE ONE TABLET BY MOUTH ONCE DAILY active Not Available Not Available No t Available ciprofloxac in 500 mg tablet Take 1 tablet (500 mg total) by mouth 2 (two) times a day. Start 2 days prior to prostate Ultrasoun d 12/23 completed Not Available Not Available Not Available levothyroxi ne 200 mcg tablet 12/06 completed Not Available Not Available Not Available finasteride 5 mg tablet 12/06 completed Not Available Not Available Not Available valsartan 160 mg tablet TAKE TWO TABLETS BY MOUTH DAILY 2023 active Not Available Not Available Not Avai lable abiraterone 250 mg tablet Take 4 tablets (1,000 mg total) by mouth every morning on an empty stomach. 12/06 completed Not Available Not Available Not Available Klisyri 1 % topical ointment in packet Apply to red spots on left forehead and scalp once daily for 5 days, then stop. active Not Available Not Available No t Available Paxlovid 300 mg (150 mg x 2)-100 mg tablets in a dose pack 12/06 completed Not Available Not Available Not Available Vitals Date Recorded Body height Respiratory rate Heart rate Oxygen saturation Oxygen saturation in Arterial blood by Pulse oximetry Body mass index (BMI) Body weight Systolic blood pressure Diastolic blood pressure Provider Name and Address Organization Details Last Updated DateTime 3 185.42 cm 16 /min 64 /min 98 % 98 % 24.3 kg/m2 05633 g 141 mm[Hg] 78 mm[Hg] Solange Crow [facility] 3 10:04:36 Date Recorded Systolic blood pressure Diastolic blood pressure Provider Name and Address Organization Details Last Updated DateTime 05/13/2023 138 mm[Hg] 76 mm[Hg] Babar Rudd MD [address] [place] [address], [address] [place] [address], [phone], [facility] 05/13/2023 10:21:03 Date Recorded Body height Heart rate Respiratory rate Oxygen saturation Oxygen saturation in Arterial blood by Pulse oximetry Systolic blood pressure Diastolic blood pressure Provider Name and Address Organization Details Last Updated DateTime 4 185.42 cm 70 /min 16 /min 98 % 98 % 142 mm[Hg] 77 mm[Hg] Annika Edges [facility] 4 08:48:28 Date Recorded Body mass index (BMI) Body weight Provider Name and Address Organization Details Last Updated DateTime 12/12/2023 24.3 kg/m2 19556 g Marisol Saucedo MD [address] [place] [address], [address] [place] [address], [phone], [facility] 12/12/2023 09:14:09 Date Recorded Body height Body mass index (BMI) Body weight Respiratory rate Heart rate Oxygen saturation Oxygen saturation in Arterial blood by Pulse oximetry Systolic blood pressure Diastolic blood pressure Provider Name and Address Organization Details Last Updated DateTime 4 185.42 cm 24.5 kg/m2 84027.1 8 g 16 /min 63 /min 98 % 98 % 134 mm[Hg] 76 mm[Hg] Annika Vasquez [facility] 4 11:29:48 Date Recorded Body height Body mass index (BMI) Body weight Respiratory rate Heart rate Oxygen saturation Oxygen saturation in Arterial blood by Pulse oximetry Provider Name and Address Organization Details Last Updated DateTime 3 185.42 cm 24 kg/m2 10650.8 1 g 16 /min 63 /min 97 % 97 % Solange Crow [facility] 3 10:21:59 Date Recorded Systolic blood pressure Diastolic blood pressure Provider Name and Address Organization Details Last Updated DateTime 12/06/2022 142 mm[Hg] 74 mm[Hg] Babar Rudd MD [address] [place] [address], [address] [place] [address], [phone] 12/06/2022 11:04:30 Date Recorded Body height Respiratory rate Heart rate Oxygen saturation Oxygen saturation in Arterial blood by Pulse oximetry Body mass index (BMI) Body weight Systolic blood pressure Diastolic blood pressure Provider Name and Address Organization Details Last Updated DateTime 3 185.42 cm 16 /min 63 /min 98 % 98 % 23.7 kg/m2 72183.6 3 g 140 mm[Hg] 78 mm[Hg] Solange Crow [facility] 3 11:37:44 Social History Question Answer Notes LastModified by Organizat ion Details LastModified Time Tobacco Smoking Status Former Smoker As a child Marisol Saucdeo MD [address] [place] [address], [address] [place] [address], [phone] 12/12/2023 09:12:34 Do You Have An Advance Directive? Yes [email or web address] Information not available 12/06/2022 What Is Your Level Of Alcohol Consumption? Moderate Information not available 12/06/2022 Are You Currently Sexually Active With Anyone Who Has Traveled (within The Last 12 Weeks) To A Zika-affected Area? No [email or web address] Information not available 12/06/2022 Are You Blind Or Do You Have Difficulty Seeing? No [email or web address] Information not available 12/06/2022 What Is Your Level Of Caffeine Consumption? Moderate [email or web address] Information not available 12/06/2022 Are You A Caregiver? No [email or web address] Information not available 12/06/2022 In The 14 Days Before Symptom Onset, Have You Had Close Contact With A Person Who Is Under Investigation For COVID-19 While That Person Was Ill? No [email or web address] Information not available 12/06/2022 Have You Been To An Area Known To Be High Risk For COVID-19? No [email or web address] Information not available 12/06/2022 Are You Deaf Or Do You Have Serious Difficulty Hearing? Yes LEFT EAR [email or web address] Information not available 12/06/2022 What Type Of Diet Are You Following? REGULAR Information not available 12/06/2022 How Many Days Of Moderate To Strenuous Exercise, Like A Brisk Walk, Did You Do In The Last 7 Days? 7 [email or web address] Information not available 12/06/2022 On Those Days That You Engage In Moderate To Strenuous Exercise, How Many Minutes, On Average, Do You Exercise? 90 [email or web address] Information not available 12/06/2022 When Did You Quit Smoking? 16+yearssinc elastcigaret te Information not available 12/06/2022 Are There Any Guns Present In Your Home? No [email or web address] Information not available 12/06/2022 Have You Recently Or Are You Planning To Travel To An Area With Zika Virus? No Information not available 12/06/2022 Do You Use Insect Repellent Routinely? No Information not available 12/06/2022 Where Do You Live? Condo [email or web address] Information not available 12/06/2022 How Long Have You Lived There? 25 [email or web address] Information not available 12/06/2022 Do You Have A Medical Power Of Power And Recovery Superintendent? Yes [email or web address] Information not available 12/06/2022 How Many Children Do You Have? 0 [email or web address] Information not available 12/06/2022 Do You Have An Out Of Hospital DNR? No [email or web address] Information not available 12/06/2022 Do You Have Any Pets? No Information not available 12/06/2022 Do You Use Your Seat Belt Or Car Seat Routinely? Yes [email or web address] Information not available 12/06/2022 Do You Have Smoke And Carbon Monoxide Detectors In Your Home? Yes [email or web address] Information not available 12/06/2022 Are You Passively Exposed To Smoke? No [email or web address] Information no t available 12/06/2022 Are There Any Smokers In Your House? No [email or web address] Information not available 12/06/2022 What Types Of Sporting Activities Do You Participate In? 0 [email or web address] Information not available 12/06/2022 Do You Feel Stressed (tense, Restless, Nervous, Or Anxious, Or Unable To Sleep At Night)? [id number] [email or web address] Information not available 12/06/2022 Do You Use Any Illicit Or Recreational Drugs? No [email or web address] Information not available 12/06/2022 Do You Use Sunscreen Routinely? No Information not available 12/06/2022 Have You Recently Traveled Abroad? No [email or web address] Information not available 12/06/2022 Do You Or Have You Ever Used Any Other Forms Of Tobacco Or Nicotine? No Information not available 12/06/2022 How Many Days In The Past Year Have You Consumed 5 Or More Drinks? 0 [email or web address] Information no t available 12/06/2022 Sex: Unknown Functional Status Question Answer Note LastModified by Organizat ion Details LastModified Time Do you have difficulty walking or climbing stairs? No [email or web address] Information not available 12/06/2022 Do you have transportation difficulties? No [email or web address] Information not available 12/06/2022 Are you able to walk? YESWOREST [email or web address] Information not available 12/06/2022 Do you have difficulty doing errands alone? No [email or web address] Information not available 12/06/2022 Are you able to care for yourself? Yes [email or web address] Information not available 12/06/2022 Do you have difficulty dressing or bathing? No [email or web address] Information not available 12/06/2022 What is your exercise level? Heavy [email or web address] Information not available 12/06/2022 Mental Status None recorded. Family History Relationship Description Onset Age of this Age Resolved Age Notes LastModified by Organization Details LastModified Time Mother Malignant neoplastic disease Unknow n type-a t age 82 y/o [email or web address] Not available 12/12/2023 09:11:49 Father Malignant tumor of colon suicid e [email or web address] Not available 12/12/2023 09:11:59 Sister No current problems or disability [email or web address] Not available 12/11 09:12:10 Notes:Problem: Colon cancer Relation: Natural father Problem: Cancer Relation: Natural mother Problem: Cancer Relation: Natural mother Problem: Colon cancer Relation: Natural father Medical History No medical history recorded. Immunizations Vaccine Type Date Status Note Provider Nam e and Address Organization Details Recorded Time COVID-19, mRNA, LNP-S, PF, 100 mcg/0.5mL dose or 50 mcg/0.25mL dose 09/01/2020 completed Not Available [facility] 16:46:13 COVID-19, mRNA, LNP-S, PF, 100 mcg/0.5mL dose or 50 mcg/0.25mL dose 08/04/2020 completed Solange Crow [facility], [place] - [facility] 05/13/2023 10:04:50 Past Encounters Encounter ID Performer Location Encounter Start Date Encounter Closed Date Diagnosis/Indication Diagnosis SNOMED-CT Code Diagnosis ICD10 Code Diagnosis Note [id number] Babar Rudd MD [facility]_ IM_[address] [facility] [address] 12/06/2022 09:56:43 12/06/2022 11:26:05 Adult health examination 647935465 Z00.00 Benign ess ential hypertension 2065489 I10 BP elevated.A dd amlodipine 5Check in 3 months Hypercholesterolemia 136 46423 E78.00 Continue atorva as scheduled Malignant tumor of prostate 509435972 C61 Evidence of chemical recurrence PSA IS 0.5 up from 0.00-Follo wed carefully by urology Squamous c ell carcinoma of skin 408825884 C44.92 Sees derm regularly Hypothyroidism 92038862 E03.9 TSH slightly suppressed Will repeat and lower syntyroid if needed Screening for malignant neoplasm of colon 473842779 Z12.11 Type 2 laure betes mellitus 21615711 E11.9 A1c ia 6.2Mild microalbum inuria 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 085053393 E11.21 On Valsartan Acoustic neuroma 2818873 07 D33.3 [id number] Babar Rudd MD [facility] [facility] [address] [facility] [place] [address] 01/17/2023 11:20:26 01/17/2023 12:17:05 Benign essential hypertension [id number] I10 ImprovedHe will monitor at home and call if elevated Type 2 laure betes mellitus 44371459 E11.9 A1c is 6.2Mild microalbum inuria Malignant tumor of prostate 077067156 C61 Evidence of chemical recurrence PSA IS 0.5 up from 0.00-Follo wed carefully by urology [id number] Babar Rudd MD CT_CTCMA_ IM_ [address] [facility] [place] [address] 05/13/2023 09:50:11 05/13/2023 10:40:23 Type 2 diabetes mellitus 14162396 E11.9 A1c is 6.2Mild microalbum inuria on ARB Acoustic neuroma 8717660 07 D33.3 Per ENT Hypercholesterolemia 136 45041 E78.00 Continue atorva as prescribed Benign ess ential hypertension 5968483 I10 Well controlled Malignant tumor of prostate 141802449 C61 Per urology [id number] Marisol Saucedo MD CT_CTCMA_ IM_ [address] [facility] [place] [address] 12/12/2023 08:32:02 12/12/2023 09:45:17 Adult health examination [id number] Z00.00 Genitourin dio disease screening 160520597 Z12.79 Screening for cardiovascular system disease 273024045 Z13.6 Type 2 laure betes mellitus 01253012 E11.9 Microscopic hematuria 19 0302854 R31.29 History of acoustic neuroma 6380030021 28726 Z86.823 [id number] Marisol Saucedo MD CT_[facility]_ IM_ [address] [place] [address] 06/01/2024 10:45:08 06/01/2024 12:11:29 Type 2 diabetes mellitus 23957093 E11.9 Diet/exerc ise History of acoustic neuroma 5150099143 46995 Z86.018 Disorder o f adrenal gland 67528521 E27.9 Labs normal Health Concerns Section Related Observation LastModified by Organization Detai ls LastModified Time None Recorded Concern Status LastModified by Organization Details LastModified Time None Recorded Advance Directives Directive Y: Payers Encounter Date Sequence Insurance Name Policy Number Policy Baker Covered Member ID Baker Member ID Guarantor Name 12/06/2022 2 [employer] (MEDICARE SUPPLEMENT) Linda Story [id number] Linda Story 12/06/2022 1 MEDICARE B-CT: NGS Linda Blount Calvin [id number] Linda Zebb 01/17/2023 2 [employer] OPTIONS (MEDICARE SUPPLEMENT) Linda Story [id number] Linda Zebb 01/17/2023 1 MEDICARE B-CT: NGS Linda Story [id number] Linda Zebb 05/13/2023 2 [employer] (MEDICARE SUPPLEMENT) Linda Story [id number] Linda Zebb 05/13/2023 1 MEDICARE B-CT: NGS Linda Story [id number] Linda Zebb 12/12/2023 2 [employer] OPTIONS (MEDICARE SUPPLEMENT) Linda Story [id number] Linda Zebb 12/12/2023 1 MEDICARE B-CT: NGS Linda Story [id number] Linda Zebb 06/01/2024 2 [employer] (MEDICARE SUPPLEMENT) Linda Story [id number] Linda Zebb 06/01/2024 1 MEDICARE B-CT: NGS Linda Blount Calvin [id number] Linda Story Notes Date Note Type Note Provider Name and Address Organization Details Recorded Time 12/06/2022 text/html Medicare Annual Wellness Visit Health Risk AssessmentReported bypatient.Diet and Nutrition:healthy diet; no dental changes Medication Review:has medications at home and can afford medications; taking medications as prescribed and directed Fracture Risk:no history of fractures; no recent explained fracture; no sudden unexplained fractures; no previous musculoskeletal injuries Physical Activity:exercises on a regular basis; good physical condition Sexual Activity:denies any difficulty Current level of painNo pain: 0/10 behavioral historydenies use of tobacco or any other nicotine delivery product (i.e., e-cigarette, vaping or chewing tobacco) in past 12 months; denies alcohol use or practices limited (social only) alcohol use; denies misuse of prescription medications; denies drug use, including marijuana, cocaine or crack, heroin, methamphetamine (crystal meth), hallucinogens, ecstasy/MDMA Depression Risk:Assessed by PHQ 2/9, see results Orientation:no disorientation to time; no disorientation to date; no disorientation to place Concentration and Memory:no decreased concentrating ability; no memory lapses or loss; does not forget words Speech/Motor difficulties:no speech difficulties; no difficulty expressing formulated concepts; no difficulty with fine manipulative tasks; no difficulty writing/copying; no slowed reaction time; does not knock things over when trying to pick them up Hearing:no loss of hearing Vision:no vision problems Activities of Daily Living:able to bathe with limited or no assistance; able to contol urination and bowels; able to dress with limited or no assistance; able to groom with limited or no assistance; able to feed self with limited or no assistance; able to get out of chair or bed with limited or no assistance; able to toilet with limited or no assistance Instrumental Activities of Daily Living:able to do house work with limited or no assistance; able to grocery shop with limited or no assistance; able to manage medications with limited or no assistance; able to manage money with limited or no assistance; able to prepare meals with limited or no assistance; able to use the phone with limited or no assistance; able to use public transportation Falls Risk Assessment:Assessed by STEMALINDA Fall Risk, see result Home Safety:no unsafe lawrence hazzards; no unsafe stairs; no unsafe gas appliances; working smoke/CO detectors; use of seatbelts; no vision or hearing loss while driving; no fire arms; has hand bars in the bathroom/shower; good lighting in the home Babar Rudd MD [address] [place] [address], [address], [place], [phone], [place] [facility] 12/16/2022 20:10:08 01/17/2023 text/html Feels wellAmlovinod pine added last visitNo polysNo neuropathic symptomsNo visual complaintsNo current balance problemsNo med side effects Babar Rudd MD [address] [place] [address], [address] [place] [address], [phone], [facility] 01/17/2023 12:13:43 05/13/2023 text/html Doing wellNo rec ent vertigoGait mildly abnormalBalance not much a of a problemNo cardiac or pulmonary symptoms Babar Rudd MD [address] [place] [address], [address] [place] [address], [phone], [facility] 05/13/2023 10:31:21 12/12/2023 text/html AWV-forms review ed.\Had cataract surgery. No recent f/u for acoustic neuroma. Sees [place] [facility] Dr Shira Mckeon for prostate. Had RT. PSA was undetectable. Now 0.5. Sees twice/year. Had hormonal rx. Needs Cologuard. Marisol Saucedo MD [address] [place] [address], [phone], [place] [facility] 12/14/2023 16:31:23 06/01/2024 text/html Feels well. Had w/u. Has not had any recent f/u for acoustic neuroma history. Marisol Saucedo MD [address] [place] [address], [address] [place] [address], [place], [phone], [place] - [facility] 06/08/2024 15:15:00
--- OUTSIDE RECORDS SUMMARY | 2024-09-23 09:08 | XMS_ITS ---
Author Name [facility] Organization Unknown History of Medication Use Medication Directions Dispensed Refills Start Date End Date [facility] amlodipine 5 mg tablet TAKE ONE TABLET BY MOUTH ONCE DAILY active finasteride (PROSCAR) 5 MG tablet 12/06/2020 active nystatin 100,000 unit/mL oral suspension Take 5 mL (500,000 Units total) by mouth 4 (four) times a day. 12/06/2022 completed levothyroxine (SYNTHROID, LEVOXYL) tablet 200 mcg 08/01/2017 active abiraterone 250 mg tablet Take 4 tablets (1,000 mg total) by mouth every morning on an empty stomach. 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 2024-05-24 6 ProblemAct [facility] Microscopic hematuria active 2023-11-24 7 ProblemAct [facility] Malignant tumor of prostate active 2019-11-23 0 ProblemAct [facility] Adrenal hyperplasia active 9 ProblemAct [facility] Acoustic neuroma active 2022-11-23 5 ProblemAct [facility] Hypercholesterolemia active 2022-11-22 5 ProblemAct [facility] Disorder of adrenal gland active 2024-03-24 6 ProblemAct [facility] Type 2 diabetes mellitus active 2022-11 5 ProblemAct [facility] Benign essential hypertension active 2022-11-22 5 ProblemAct [facility] Immunizations Vaccine Date Source Lot Number Status SARS-COV-2 (COVID-19) vaccin e, mRNA, spike protein, LNP, preservative free, 100 mcg/0.5mL dose 08/04/2020 [facility] [id number] completed SARS-COV-2 (COVID-19) vaccin e, mRNA, spike protein, LNP, preservative free, 100 mcg/0.5mL dose 09/01/2020 [facility] [id number] completed Encounters Encounter Type Encounter Reason Primary Diagnosis Location Date [facility] 07/22/2024 [facility] 06/01/2024 [facility] 01/28/2024 Ambulatory Other microscopic hematuria Other microscopic hematuria [facility] 12/12/2023 [facility] 12/12/2023 [facility] 12/12/2023 Care Team Organization Name Specialty Phone Email Start Date End [facility] 01/29/2024 [facility] 11/23 [facility] Babar [facility] 12/14/2023
--- OUTSIDE RECORDS SUMMARY | 2024-09-23 09:08 | XMS_ITS | Clinical Summary ---
Author Organization [facility] Address [address] [place] [address] Care Team Providers Care Adjunct Physics Instructor Name Role Phone Unavailable Primary Care Provider Unavailabl e Social History Tobacco Use Types Packs/Day Years Used Date Smoking Tobacco: Never Assessed Sex and Gender Information Value Date Recorded Sex Assigned at Not on file Gender Identity Not on file Sexual Orientation Not on file Plan of Treatment Health Maintenance Due Date Last Done Comments Hepatitis C Virus Screening 1950 DTaP/Tdap/Td Vaccines (1 - Tdap) 11/12/1970 Pneumococcal Vaccines 50+ (1 of 1 - PCV) 11/12/2001 Zoster (Shingles) Vaccine (1 of 2) 11/12/2001 COVID-19 Vaccine ( - 2023-2 5 season) 2024 RSV Vaccine 60 years and old er and Patients (1 - 1-dose 75+ series) 11/12/2026 Hepatitis B Vaccines Aged Out No long er eligible based on patient's age to complete this topic
--- OUTSIDE RECORDS SUMMARY | 2024-09-23 09:08 | XMS_ITS | Clinical Summary ---
Author Organization [facility] Address [address] [place] [address] Care Team Providers Care Black Top Raker Name Role Phone Babar Rudd MD Primary Care Provider [phone] Allergies No known active allergies Medications Medication Sig Dispensed Refills Start Date End Date Status valsartan (DIOVAN) tablet 160 mg 0 08/19/2017 Active levothyroxine (SYNTHROID, LEVOXYL) tablet 200 mcg 0 08/01/2017 Active atorvastatin (LIPITOR) tablet 80 mg 0 08/01/2017 Active metFORMIN (GLUCOPHAGE) tablet 500 mg 0 11/05/2019 Active abiraterone (ZYTIGA) 250 MG tablet Take 4 tablets (1,000 mg total) by mouth every morning on an empty stomach. 120 tablet 6 12/29/2019 Active Additional Information Patient not taking.Reason: Side effects, Reported on 04/11/2020 finasteride (PROSCAR) 5 MG tablet 0 12/06/2020 Active Benadryl qgop-Latkzu-Jekuqt in-Lidocaine Visc mouth wash 1:1:1:1 Swish and spit 15 mL every 4 (four) hours as needed. 120 mL 1 01/20/2022 Active nystatin (MYCOSTATIN) 480929 UNIT/ML suspension Take 5 mL (500,000 Units total) by mouth 4 (four) times a day. 60 mL 0 01/20/2022 Active Active Problems Problem Noted Date Diagnosed Date Recurrent squamous cell carcinoma of skin 2020 Prostate cancer 12/02/2019 Cancer Staging:Clinical stage from 12/02/2019:Stage IIC(cT1c, cN0, cM0, PSA: 7.3, Grade Group: 4) - Signed by Oscar Wren MD on 12/02/2019 Immunizations Name Administration Dates Next Due Covid-19 (Moderna 12+) 100mcg/0.5mL dosage 09/01 Family History Medical History Relation Name Comments Colon cancer Father Cancer Mother unknown primary Relation Name Status Comments Father Mother Social History Tobacco Use Types Packs/Day Years Used Date Smoking Tobacco: Former Cigarettes 1 10 Q uit: 10/03/1977 Smokeless Tobacco: Never Alcohol Use Standard Drinks/Week Comments Yes 14 (1 standard drink = 0.6 oz pu re alcohol) Sex and Gender Information Value Date Recorded Sex Assigned at Male 01/20/2022 1:45 PM EDT Gender Identity Not on file Sexual Orientation Not on file Job Start Date Occupation Industry Not on file Not on file Not on file Last Filed Vital Signs Vital Sign Reading Time Taken Comments Blood Pressure 158/93 01/20/2022 1:31 PM EDT Pulse 75 01/20/2022 1:31 PM EDT Temperature 36.1 ??C (97 ??F) 01/20/2022 1:31 PM EDT Respiratory Rate 20 01/20/2022 1:31 PM EDT Oxygen Saturation 98% 01/20/2022 1:31 PM EDT Inhaled Oxygen Concentration - - Weight 86.2 kg (190 lb) 01/20/2022 1:31 PM EDT Height 188 cm (6' 2 ) 01/20/2022 1:31 PM EDT Body Mass Index 24.39 01/20/2022 1:31 PM EDT Plan of Treatment Health Maintenance Due Date Last Done Comments Hepatitis C Screening 1950 Depression Screening 1963 Preventative Health Evaluation 11/12/1969 DTap / Tdap / Td (1 - Tdap) 11/12/1970 Shingrix-Zoster Vaccine (1 of 2) 11/12/1970 Colon Cancer Screening (Colonoscopy) 11/12/1996 Pneumococcal Vaccine (2 of 2 - PCV) 03/06/2012 03/06/2011 Fall Risk Assessment 11/12/2016 COVID-19 Vaccine (2 - Modern a risk series) 09/29/2020 09/01/2020 Influenza Vaccine (#1) 2024 RSV Adult > 60+ Yrs or Pregn ant (1 - 1-dose 75+ series) 11/12/2026 Hepatitis B Vaccines Aged Out No long er eligible based on patient's age to complete this topic RSV Ped < 20 months Aged Out No longe r eligible based on patient's age to complete this topic Care Teams Black Top Raker Relationship Specialty Start Date End Date Babar Rudd MD PCP - General Internal Medicine 04/11/16
== END 2024-09-23 09:37 | disposition home or self-care (01) ==
LOC: HO.HUSH 08:41
PROVIDERS: PCP Internal Medicine; Visit Provider Urology
DX: C61 Malignant neoplasm of prostate (principal); N30.40 Irradiation cystitis without hematuria
CPT/HCPCS: 99213; G2211

== ENCOUNTER → 2024-09-23 08:41 | Outpatient (BNVA) | payer MEDICARE, SELFPAY | PROVIDERS: PCP Internal Medicine; Visit Provider Urology ==

== ENCOUNTER 2025-03-26 09:41 | Outpatient (REF) | payer MEDICARE, SELFPAY | END 2025-03-26 09:42 | disposition home or self-care (01) | LOC: HO.LNP 09:41 | PROVIDERS: PCP Internal Medicine; Visit Provider Urology | DX: C61 Malignant neoplasm of prostate (principal); N30.40 Irradiation cystitis without hematuria | CPT/HCPCS: 52000; 81003; 88121; 99212 ==

== ENCOUNTER 2025-03-26 09:41 | Outpatient (AMB) | payer MEDICARE, SELFPAY ==
--- NOTE | 2025-03-26 09:45 | MHC.OFFVIS ---
Intake Visit Reasons: cysto/PSA Intake Note: patient presents today for: cystoscopy/PSA urology medications: none blood thinners: none labs done 03/16/25: PSA 0.3 Roller Setter Required: No Accompanied by: Self / Same As Patient Allergies No Known Allergies Allergy (Verified 03/26/25 09:47) HPI Comments Details: Zeeshan is a very pleasant male. He is a patient of Dr Rudd. He is seen for the following urologic conditions - prostate cancer Here for PSA and check cystoscopy Mucosal bladder changes right sidewall quarter May represent radiation effect Plan bladder biopsy with fulguration Check testosterone. Has been having a number of symptoms including weakness 08/16 PSA 0.8, 01/13 0.5, 08/17 0.8, 09/15 0.5. 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 Initial therapy external beam radiation with hormones - 08/13 Prostate cancer was diagnosed 08/13 Dr Mckeon. Diagnosis was reached by needle biopsy, for elevated PSA, PSA at diagnosis 7.3 rise from 5.1 - 1 yr earlier The [place] grade is LMB , 4+4 = 8 20%, RMA , 3+3 = 6 10%, Total 30%/1200% = 2.5% Polaris evaluation 35 percentile for Group 4 TNM Classification of Malignant Tumours (TNM) T1c The D'Navi (NCCN) risk category is has 2 low risk features and 1 high risk features, group 4 Initial therapy included Primary treatment - EXBRT - completed February 2020 - with hormones and 18 months of finasteride - 09/10 GnRH 6 months, 03/03/2020 GnRH 45mg Eligard Imaging included 09/10 a bone scan NAD PSA values - 06/12 PSA 0.1, T< 3, 09/11 PSA 0.1, T < 3, 12/12 PSA <0.1, T 330, 03/14 PSA < 0.1 T 305, 06/13 <0.1 T 340, 09/12 0.1 T 321, 01/12 0.5, 06/14 0.5 PFSH Medical History Elevated PSA Surgical History H/O thyroidectomy Review of Systems Const Denies chills and Denies fever(s) Card Reports no additional complaints and Denies syncope Resp Denies cough GI Denies abdominal pain and Denies heartburn Reports as per HPI and Denies change in libido Neuro Denies syncope Psych Denies change in libido Endo Denies change in libido Physical Exam Const General: cooperative, healthy appearing, comfortable and no acute distress Orientation/consciousness: patient oriented x3 HEENT Face and sinus: Yes normal facial exam Mouth: moist mucous membranes Neck Neck: Yes normal visual inspection, Yes full ROM and Yes trachea midline Chest Chest palpation & inspection: normal inspection of the chest Resp Effort & Inspection: normal respiratory effort, able to speak in complete sentences and no respiratory distress GI Inspection: Yes normal to inspection Back/Spine/Pelvis Cervical Spine: normal cervical lordosis Thoracic/Lumbar Spine: thoracic and lumbar spine normal to inspection Skin General skin exam: no rashes or lesions noted Neuro General: patient oriented x3, gait normal, tone normal and moves all extremities Extrem General: Yes normal to inspection and Yes capillary refill normal Office Procedures Cystoscopy Consent Discussed risk and benefit or proposed procedure with the patient. Information consent for procedure given to the patient. Discussed technical aspects, risks, benefits and alternatives in full. Addressed all of the patient's questions and concerns regarding the procedure. The patient demonstrated knowledge and understanding. They wish to proceed with this procedure. Preparation The patient was prepped in the usual manner. A electrical mechanical technician was present and in the room. Genitalia was prepped with betadine solution in a sterile manner. Lidocaine Jelly 2% was placed into the urethra and 16Fr flexible Olympus cystoscope was inserted into the meatus after adequate lubrication. Procedure Cystoscopy performed using a disposable Urovue digital 16 Bulgarian cystoscope. Meatus circumcised Urethra anterior and posterior urethra normal Prostatic Urethra unremarkable Bladder examination with retroflexion of cystoscope Bladder Orifices normal shape and position Bladder Capacity Normal Trabeculations 1 Cellule Formation small Diverticulum Formation None Mucosal Erythema mucosal changes in lower 3rd consistent with radiation effect, right sidewall flat lesion Bladder Tumor None - no papillary changes [id number] DISPOSABLE SCOPE URO-G FLEXIBLE SCOPE Procedure code (CPT) selection complete Office Meds lidocaine HCl 2 % mucosal jelly in applicator Performing Provider: Trae Mckeon MD Performing [facility] Administered by: Ying Peralta RN on 03/26/25 10:01 Dose Route Admin Location Dispensed Lot Number Expiration Date ND Field [employer]ps Harvest Machine Operator 10 mL intra-urethral 10 mL nitrofurantoin monohydrate/macrocrystals 100 mg capsule Performing Provider: Trae Mckeon MD Performing Location: [facility] Administered by: Ying Peralta RN on 03/26/25 10:01 Dose Route Admin Location Dispensed Lot Number Expiration Date ND [employer] Harvest Machine Operator 100 mg PO 1 cap Results AMB Urinalysis, Automated UA Leukoctes 0 Corrine/uL Last Edit by JAXON Gomez on 03/26/25 10:27 UA Nitrite Negative Last Edit by JAXON Gomez on 03/26/25 10:27 UA Urobilinogen 0.2 mg/dL Last Edit by JAXON Gomez on 03/26/25 10:27 UA Protein 15 mg/dL Last Edit by Martita Garland CCM on 03/26/25 10:27 UA pH 6.0 Last Edit by JAXON Gomez on 03/26/25 10:27 UA Blood 10 Archie/uL Last Edit by JAXON Gomez on 03/26/25 10:27 UA Specific [place] 1.015 Last Edit by JAXON Gomez on 03/26/25 10:27 UA Ketone Last Edit by JAXON Gomez on 03/26/25 10:27 UA Bilirubin 0 mg/dL Last Edit by JAXON Gomez on 03/26/25 10:27 UA Glucose 0 mg/dL Last Edit by JAXON Gomez on 03/26/25 10:27 Assessment & Plan Assessment & Plan (1) Radiation cystitis: Comment: Microscopic hematuria, CT urogram March 2024 negative Code(s): N30.40 - Irradiation cystitis without hematuria Category: Medical (2) Prostate cancer: Comment: 08/13 high-grade initial therapy external beam radiation with hormones 12m Code(s): C61 - Malignant neoplasm of prostate Category: Medical Plan Risks, benefits and alternatives to therapy were discussed. These include but are not limited to infection, bleeding, damage to local organs and tissues, need for further interventions. Anesthetic risks regarding cardiac arrhythmia, blood clots, and potential mortality were discussed. The patient understands the typical recovery time and the outpatient nature of the procedure. After consideration of these risks the patient gives full informed consent and they wish to move ahead with the procedure. - cystoscopy, bladder biopsy, fulguration Orders: Orders FISH Bladder Cancer Today C67.9 - Malignant neoplasm of bladder, unspecified AMB Urinalysis Automated Today Z13.9 - Encounter for screening, unspecified Testosterone, Free/Total Today C61 - Malignant neoplasm of prostate AMB Cystoscopy Today C61 - Malignant neoplasm of prostate, N30.40 - Irradiation cystitis without hematuria, N40.1 - Benign prostatic hyperplasia with lower urinary tract symptoms, R31.29 - Other microscopic hematuria Patient Instructions: This note is constructed using voice recognition software. While every effort has been made to ensure accuracy radial saw operator errors may have been included. Imaging studies, laboratory and physical exam results were discussed and reviewed in detail. No major barriers to patient understanding were identified. An opportunity to ask questions regarding the treatment plan was provided. All questions were answered. The patient expressed understanding and agreement with the above treatment plan. The patient is aware they should contact our office by phone for worsening of their current condition or the appearance of new urologic symptoms. Compliance is encouraged with any medications and followup testing that is ordered. It is a privilege to participate in the urologic care of your patient. If you have any questions or concerns regarding treatment for the above conditions, or other urologic issues, please do not hesitate to contact me. The office telephone contact is [phone]. Sincerely, Dr Trae Mckeon MD, [facility] - Urology Compassionate Specialist Care for the Genitourinary System Coding Level of Care Code Est Pt Level 4 (70352) Complex EM visit Add On G2211 Diagnoses Radiation cystitis N30.40 Prostate cancer C61 CPT Codes Cystoscopy - CPT: 02527-[id number] ([id number])
--- OUTSIDE RECORDS SUMMARY | 2025-03-26 10:16 | XMS_ITS | Clinical Summary ---
Author Organization [facility] Address [address] [place] [address] Care Team Providers Care Plater Helper Name Role Phone Babar Rudd MD Primary Care Provider [phone] Surgical History Surgery Date Site/Laterality Comments THYROIDECTOMY 2006 PROCEDURE:THYROIDECTOMY TONSILLECTOMY PROCEDURE:TONSILLECTOMY Medical History Medical History Date Comments Disease of thyroid gland DX:Dise ase of thyroid gland Elevated PSA DX:Elevated PSA Acoustic neuroma (CMS/HCC V2 4, CMS/HCC V28) 2016 DX:Acoustic neuroma (HCC) Depression DX:Depression SCC (squamous cell carcinoma), scalp/neck DX:SCC (squamous cell carcinoma), scalp/neck Prostate CA (CMS/HCC V24, CMS/HCC V28) 2019 DX:Prostate CA (HCC) Thyroid cancer (CMS/HCC V24, CMS/HCC V28) 2006 DX:Thyroid cancer (HCC) Diabetes mellitus (CMS/HCC V 24, CMS/HCC V28) DX:Diabetes mellitus (HCC) Hypertension DX:Hypertension Family History Medical [...] Health Maintenance Due Date Last Done Comments Colorectal Cancer Screening: Colonoscopy 1950 DTaP,Tdap,and Td Vaccines (1 - Tdap) 11/12/1970 Pneumococcal Vaccine: 50+ Ye ars (1 of 1 - PCV) 11/12/2001 Zoster Vaccines (1 of 2) 11/12/2001 Abdominal Aortic Aneurysm (A AA) Screen 05/28/2022 Cholesterol Screening (Lipid Panel) 05/28/2022 Falls Risk Assessment 05/28/2022 Hepatitis C Screening 05/28/2022 Social Influencers of Health Screening 05/28/2022 Medicare Annual Wellness Visit 12/07/2023 12/06/2022 Depression Screening 06/24/2024 COVID-19 Vaccine (2 - 2024-2 6 season) 2025 09/01/2020 Influenza Vaccine (#1) 2025 RSV Immunization Adult Patie nts (1 - [...] age to complete this topic Meningococcal B Vaccine Aged Out No l onger eligible based on patient's age to complete this topic RSV Immunization Patients Un markus 20 months Aged Out No longer eligible b ased on patient's age to complete this topic Varicella Vaccines Aged Out No longer eligible based on patient's age to complete this topic Care Teams Plater Helper Relationship Specialty Start Date End Date Babar Rudd MD [address] [facility] [address] [place] [address] PCP - General Internal Medicine 04/11/16
--- OUTSIDE RECORDS SUMMARY | 2025-03-26 10:16 | XMS_ITS | Clinical Summary ---
Author Organization [facility] Address [address] [place] [address] Care Team Providers Care Regulatory Affairs Specialist Name Role Phone Unavailable Primary Care Provider Unavailabl e Social History Tobacco Use Types Packs/Day Years Used Date Smoking Tobacco: Never Assessed Sex and Gender Information Value Date Recorded Sex Assigned at Not on file Legal Sex Male 10:49 AM EST Gender Identity Not on file Sexual Orientation Not on file Plan of Treatment Health Maintenance Due Date Last Done Comments Advance Care Planning 1950 Hepatitis C Virus Screening 1950 DTaP/Tdap/Td Vaccines (1 - Tdap) 11/12/1970 Pneumococcal Vaccines 50+ (1 of 1 - PCV) 11/12/2001 Zoster (Shingles) Vaccine (1 of 2) 11/12/2001 COVID-19 Vaccine (1 - 2023-2 5 season) 2025 RSV Vaccine 60 years and old er and Patients (1 - 1-dose 75+ series) 11/12/2026 Hepatitis B Vaccines Aged Out No long er eligible based on patient's age to complete this topic
--- OUTSIDE RECORDS SUMMARY | 2025-03-26 10:16 | XMS_ITS | Clinical Summary ---
Author Organization [facility] Address [address] [place], [place] [id number] Phone Care Team Providers Care Rn Home Health Name Role Phone Babar Rudd MD Primary Care Provider [phone] Self-Referred, Patient Unavailable Unavailab Chio Figueroa MD, PhD Unavailable [phone] Teresita Marin MD Unavailable [phone] Oscar Wren MD Unavailable Allergies No known active allergies Medications levothyroxine (SYNTHROID, LEVOTHROID) 175 MCG tablet 11/05/2019 Active valsartan (DIOVAN) 160 MG tablet 11/06/2019 Activ e metFORMIN (GLUCOPHAGE) 500 MG tablet 11/05/2019 Active atorvastatin (LIPITOR) 80 MG tablet 11/05/2019 Active bicalutamide (CASODEX) 50 MG tablet 11/20/2019 Active Active Problems Problem Noted Date Diagnosed Date Prostate cancer 12/02/2019 Family History Relation Status Comments Father Mother Social History Tobacco Use Types Packs/Day Years Used Date Smoking Tobacco: Former Cigarettes 1 10 1 8 - 1977 Smokeless Tobacco: Never Alcohol Use Standard Drinks/Week Comments Yes 0 (1 standard drink = 0.6 oz pur e alcohol) Education Answer Date Recorded Are you interested in more education? Not on angelo e 10/19/2022 Are you concerned about learning? Not on file 10/19/2022 No 10/19/2022 No 10/19/2022 Digital Access Answer Date Recorded No 11/17/2022 No 11/17/2022 No 11/17/2022 Reliable internet access at home? Not on file 11/17/2022 Device with a working camera? Not on file Sex and Gender Information Value Date Recorded Sex Assigned at Male 12/30/2019 11:50 AM EDT Legal Sex Male 11:11 AM EDT Gender Identity Male 12/30/2019 11:50 AM EDT Sexual Orientation Straight 12/30/2019 11 :50 AM EDT Plan of Treatment Health Maintenance Due Date Last Done Comments Adult Td,Tdap Booster 1950 CREATININE LEVEL 1950 LIPID PANEL 1950 POTASSIUM LEVEL 1950 TSH LEVEL 1950 DEPRESSION SCREENING 1963 SMOKING Hx and SMOKELESS TOB ACCO SCREENING 11/12/1964 HEPATITIS C SCREENING 11/12/1969 PNEUMOCOCCAL VACCINES (50+ y ears) (1 of 2 - PCV) 11/12/1970 ZOSTER VACCINES (1 of 2) 11/12/1970 COLOGUARD 11/12/1996 COLONOSCOPY 11/12/1996 COLORECTAL CANCER SCREENING 11/12/1996 FIT TEST 11/12/1996 FOBT 11/12/1996 SIGMOIDOSCOPY 11/12/1996 VIRTUAL COLONOSCOPY 11/12/1996 ABDOMINAL AORTIC ANEURYSM (A AA) SCREENING 11/12/2016 INFLUENZA VACCINE (#1) 2025 COVID-19 VACCINE (1 - 2023-2 5 season) 2025 RSV VACCINE (1 - 1-dose 75+ series) 11/12/2026 HEPATITIS A VACCINES Aged Out No long er eligible based on patient's age to complete this topic HIB VACCINES Aged Out No longer eligi ble based on patient's age to complete this topic MENINGOCOCCAL VACCINES (ACWY) Aged Out No longer eligible based on patient's age to complete this topic MENINGOCOCCAL VACCINES (B) Aged Out N o longer eligible based on patient's age to complete this topic Medical Devices Not on file Insurance MEDICARE PART A & B MEDICARE SUPPLEMENT MEDICARE PART A & B MEDICARE SUPPLEMENT MEDICARE PART A & B Member Subscriber Plan / Payer ( fective 2016-Present) Name:Zeeshan Simpson Member ID:[id number] Relation to Subscriber:Self Name:Zeeshan Simpson Subscriber ID:[id number] Payer ID:[id number] Group ID:Not on file Type:Medicare Address: [employer] [address] [place] [id number] [place] [address] MEDICARE SUPPLEMENT MEDICARE PART A & B [facility] MEDICARE SUPPLEMENT MEDICARE PART A & B MEDICARE SUPPLEMENT MEDICARE PART A & B MEDICARE SUPPLEMENT MEDICARE PART A & B [facility] MEDICARE SUPPLEMENT MEDICARE PART A & B [facility] MEDICARE SUPPLEMENT MEDICARE PART A & B [facility] MEDICARE SUPPLEMENT Care Teams Rn Home Health Relationship Specialty Start Date End Date Babar Rudd MD [address] [place] [address] PCP - General Geriatric Medicine 12/30/19 Self-Referred, Patient 12/30/19 Chio Garnica MD, PhD [address] [place] [id number] [email or web address] Medical Oncology 12/30/19 Teresita Marin MD [address] [place] [id number] Primary Oncologist Medical Oncology 01/02/20 Oscar Wren MD [address] [place] [id number] Treatment Team Radiation Oncology 01/02/20 Additional Source Comments The information contained in this document represents components of the legal health record. It is not the complete legal health record.[facility]
--- OUTSIDE RECORDS SUMMARY | 2025-03-26 10:16 | XMS_ITS | Clinical Summary ---
Author Organization [facility] Address [address] [place] [address] Care Team Providers Care Deputy Grand Jury Name Role Phone Babar Rudd MD Primary Care Provider [phone] Allergies No known active allergies Medications Medication [...] 5 MG tablet 0 12/06/2020 Active Benadryl inuj-Qoaqgy-Hvbgtf in-Lidocaine Visc mouth wash 1:1:1:1 Swish and spit 15 mL every 4 (four) hours as needed. 120 mL 1 01/20/2022 Active nystatin (MYCOSTATIN) 021112 UNIT/ML suspension Take 5 mL (500,000 Units [...] 75 01/20/2022 1:31 PM EDT Temperature 36.1 C (97 F) 01/20/2022 1:31 PM EDT Respiratory Rate 20 [...] risk series) 09/29/2020 09/01/2020 Influenza Vaccine (#1) 2025 RSV Adult > 60+ Yrs or Pregn ant (1 - 1-dose 75+ series) 11/12/2026 Hepatitis B Vaccines Aged Out No long er eligible based on patient's age to complete this topic RSV Ped < 20 months Aged Out No longe r eligible based on patient's age to complete this topic Care Teams Deputy Grand Jury Relationship Specialty Start Date End Date Babar Rudd MD PCP - General Internal Medicine 04/11/16
--- OUTSIDE RECORDS SUMMARY | 2025-03-26 10:16 | XMS_ITS | Data Portability ---
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 Have you reviewed [...] IF RE EXP DATE AND CALL US [email or web address] Not available 12/12/2023 12:05:27 06/01/2024 06/01/2024 Refuses vaccines Not availab le 06/01/2024 12:05:23 12/14/2024 12/14/2024 Reminders 1. Have you reviewed all current prescriptions and noted which they have discontinued with the patient? 2. Have you asked the patient if they are experiencing any new or recurring issues with bladder control? 3. Have you asked the patient about their current physical fitness routine and goals? Labs Not available 12/14/2024 10:11:23 Plan of Treatment Reminders Order Date Submit Date Provider Last Modified By Organization Details Last Modified Time Details Appointments Follow Up 2024 10:00A M Marisol Saucedo MD Not available Not available Not available Lab HbA1c (hemoglo bin A1c), blood 2024 025 CLAUDE [facility] (Centralized Electronic Ordering - All Locations), Patient Can Go To The Location Of Their Choice, [id number] 02/17/2025 06:07:31 BMP, serum or plasma 2024 025 CLAUDE [facility] (Centralized Electronic Ordering - All Locations), Patient Can Go To The Location Of Their Choice, [id number] 02/17/2025 06:07:31 CBC w/ auto diff 2024 025 HOULKA [facility] (Centralized Electronic Ordering - All Locations), Patient Can Go To The Location Of Their Choice, [id number] 02/17/2025 06:07:30 glucose, fasting, fingerst ick, blood (point of care) [email or web address]ctc[facility]im[facility], [address], [place], [address], 06/01/2024 11:59:25 HbA1c (hemoglo bin A1c), blood 2023 [email or web address]_ctc[facility]_im[facility], [address], [place], [address], 06/01/2024 12:47:51 cytology , urine 2023 024 [facility], [address], [place], [address], 01/09/2024 09:59:48 urinalys is, complete 2023 024 [facility], [address], [place], [address], 01/09/2024 09:59:48 glucose, fasting, fingerst ick, blood (point of care) [address]23 [email or web address]im[facility], [address], [place], [address], 12/12/2023 10:02:23 lipid panel w/ direct LDL, serum 2023 024 [facility], [address], [place], [address], 01/09/2024 09:59:48 microalb umin/cre atinine, mass ratio, urine 2023 024 [facility], [address] [facility], [place], [address], 01/09/2024 09:59:48 urinalys is, dipstick 2023 024 [facility]im[facility]01 [facility], [address], [address], [place], [address], 12/12/2023 10:02:23 HbA1c (hemoglo bin A1c), blood 2022 023 [email or web address] [facility], [address], [address], [place], [address], 02/14/2023 08:47:07 microalb umin, urine 2022 023 [facility], [address], [address], [place], [address], 02/14/2023 08:47:07 BMP, serum or plasma 2022 023 [facility], [address], [address], [place], [address], 02/14/2023 08:47:07 Referral otolaryn gologist referral - Follow up acoustic neuroma Dr Sam 2023 024 [facility], [address], [address], [place], [address], 12/16/2023 12:20:41 Procedures None recorded . Surgeries None recorded . Imaging MRI, brain + internal auditory canal, w/wo contrast - Compare to prior. Acoustic neuroma. 2024 025 CLAUDE [facility], [address], [place], [address], 12/15/2024 08:40:37 electroc ardiogra m 2024 025 CLAUDE In-Office Order, Internal Use Only DO Not Attach Compendium DO Not Attach Compendium, Do Not Delete/merge, [id number] 12/18/2024 18:21:39 MRI, brain + internal auditory canal, w/wo contrast - Follow up acoustic neuroma. Contrast per radiolog ist. 2023 024 [email or web address] [facility] [place], [address] [facility] , [place], [address], 06/30/2024 08:16:48 electroc ardiogra m 2023 024 In-Office Order, Internal Use Only DO Not Attach Compendium DO Not Attach Compendium, Do Not Delete/merge, [id number] 12/12/2023 10:02:23 Medication Orders None recorded . Patient TargetsNo targets recorded. Patient Instructions Encounter Date Encounter Id Patient Instructions Last Modified By Organization Details Last Modified Time 12/12/2023 [id number] well visit, over 65: care instructions [email or web address] Not available 12/12/2023 10:02:23 preventing falls : care instructions Not available 12/12/2023 10:02:23 advance directiv es: care instructions [email or web address] Not available 12/12/2023 10:02:23 To promote good health please follow these recommendations: Diet, Physical Activity and Healthy Weight: -Eat a diet low in trans and saturated fats and high in fiber, fruits and vegetables -Take 9704-6885 mg of calcium through diet and supplements -Engage in regular physical activity and weight bearing exercise -Aim to achieve and maintain ideal body mass index Tobacco and Alcohol Use: -Don't smoke or use other tobacco products -Avoid excessive alcohol intake Medications: -If you use any medications (prescriptions, uihq-ith-obmkgzk, supplements, herbal), always do so as directed [...] recommendations outlined in your personal wellness plan. Not available 12/12/2023 07:54:47 12/14/2024 [id number] well visit, over 65: care instructions [email or web address] Not available 12/14/2024 12:21:25 preventing falls : care instructions [email or web address] Not available 12/14/2024 12:21:25 advance directiv es: care instructions [email or web address] Not available 12/14/2024 12:21:25 To promote good health please follow these recommendations: Diet, Physical Activity and Healthy Weight: -Eat a diet low in trans and saturated fats and high in fiber, fruits and vegetables -Take 8743-6447 mg of calcium through diet and supplements -Engage in regular physical activity and weight bearing exercise -Aim to achieve and maintain ideal body mass index Tobacco and Alcohol Use: -Don't smoke or use other tobacco products -Avoid excessive alcohol intake Medications: -If you use any medications (prescriptions, nigt-yet-ynylwqx, supplements, herbal), always do so as directed [...] recommendations outlined in your personal wellness plan. 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 Referral fo r History of acoustic neuroma Follow up acoustic neuroma Dr Sam Referring Physician: Marisol Saucedo, Internal Medicine, Encounter Date: 12/12/2023 Results Created Date Observation Date Name Description Value Unit Range Abnormal Flag Note LastModifiedBy Organization Detail LastModifiedTime 12/05/19 24 12/05/2023 TSH+F REE T4 TSH 1.090 uIU/m L 0.450- 4.500 Not Available [facility] ([facility]) [address] [place], [address], 12/06/2023 06:07:56 12/05/19 24 12/05/2023 TSH+F REE T4 T4,free(dire ct) 1.64 NG/dL 0.82-1 .77 Not Available [facility] ([facility]) [address] [place], [address], 12/06/2023 06:07:56 12/05/19 24 12/05/2023 CBC WITH DIFFE RENTI AL/PL ATELE T WBC 4.2 x10e3 /uL 3.4-10 .8 Not Available [facility] ([facility]) [address] [place], [address], 12/06/2023 06:07:56 12/05/19 24 12/05/2023 CBC WITH DIFFE RENTI AL/PL ATELE T RBC 4.81 x10e6 /uL 4.14-5 .80 Not Available [facility] ([facility]) [address] [place], [address], 12/06/2023 06:07:56 12/05/19 24 12/05/2023 CBC WITH DIFFE RENTI AL/PL ATELE T hemoglobin 13.7 g/dL 13.0-1 7.7 Not Available [facility] ([facility]) [address] [facility], [place], [address], 12/06/2023 06:07:56 12/05/19 24 12/05/2023 CBC WITH DIFFE RENTI AL/PL ATELE T hematocrit 43.5 % 37.5-5 1.0 Not Available [facility] ([facility]) [address] [facility], [place], [address], 12/06/2023 06:07:56 12/05/19 24 12/05/2023 CBC WITH DIFFE RENTI AL/PL ATELE T MCV 90 fL 79-97 Not Available [facility] ([facility]) [address] [facility], [place], [address], 12/06/2023 06:07:56 12/05/19 24 12/05/2023 CBC WITH DIFFE RENTI AL/PL ATELE T MCH 28.5 pg 26.6-3 3.0 Not Available [facility] ([facility]) [address] [facility], [place], [address], 12/06/2023 06:07:56 12/05/19 24 12/05/2023 CBC WITH DIFFE RENTI AL/PL ATELE T MCHC 31.5 g/dL 31.5-3 5.7 Not Available [facility] ([facility]) [address] [facility], [place], [address], 12/06/2023 06:07:56 12/05/19 24 12/05/2023 CBC WITH DIFFE RENTI AL/PL ATELE T RDW 12.6 % 11.6-1 5.4 Not Available [facility] ([facility]) [address] [place], [address], 12/06/2023 06:07:56 12/05/19 24 12/05/2023 CBC WITH DIFFE RENTI AL/PL ATELE T platelets 292 x10e3 /uL 150-45 0 Not Available [facility] ([facility]) [address] [facility], [place], [address], 12/06/2023 06:07:56 12/05/19 24 12/05/2023 CBC WITH DIFFE RENTI AL/PL ATELE T neutrophils 65 % not estab. Not Available [facility] ([facility]) [address] [facility], [place], [address], 12/06/2023 06:07:56 12/05/19 24 12/05/2023 CBC WITH DIFFE RENTI AL/PL ATELE T lymphs 14 % not estab. Not Available [facility] ([facility]) [address] [facility], [place], [address], 12/06/2023 06:07:56 12/05/19 24 12/05/2023 CBC WITH DIFFE RENTI AL/PL ATELE T monocytes 16 % not estab. Not Available [facility] ([facility]) [address] [facility], [place], [address], 12/06/2023 06:07:56 12/05/19 24 12/05/2023 CBC WITH DIFFE RENTI AL/PL ATELE T eos 3 % not estab. Not Available [facility] ([facility]) [address] [facility], [place], [address], 12/06/2023 06:07:56 12/05/19 24 12/05/2023 CBC WITH DIFFE RENTI AL/PL ATELE T basos 1 % not estab. Not Available [facility] ([facility]) [address] [facility], [place], [address], 12/06/2023 06:07:56 12/05/19 24 12/05/2023 CBC WITH DIFFE RENTI AL/PL ATELE T immature cells MAMMAL CONTROL AGENT Not Available [facility] ([facility]) [address] [facility], [place], [address], 12/06/2023 06:07:56 12/05/19 24 12/05/2023 CBC WITH DIFFE RENTI AL/PL ATELE T neutrophils (absolute) 2.8 x10e3 /uL 1.4-7. 0 Not Available [facility] ([facility]) [address] [place], [address], 12/06/2023 06:07:56 12/05/19 24 12/05/2023 CBC WITH DIFFE RENTI AL/PL ATELE T lymphs (absolute) 0.6 x10e3 /uL 0.7-3. 1 below low normal Not Available [facility] ([facility]) [address] [place], [address], 12/06/2023 06:07:56 12/05/19 24 12/05/2023 CBC WITH DIFFE RENTI AL/PL ATELE T monocytes(ab solute) 0.7 x10e3 /uL 0.1-0. 9 Not Available [facility] ([facility]) [address] [place], [address], 12/06/2023 06:07:56 12/05/19 24 12/05/2023 CBC WITH DIFFE RENTI AL/PL ATELE T eos (absolute) 0.1 x10e3 /uL 0.0-0. 4 Not Available [facility] ([facility]) [address] [place], [address], 12/06/2023 06:07:56 12/05/19 24 12/05/2023 CBC WITH DIFFE RENTI AL/PL ATELE T baso (absolute) 0.0 x10e3 /uL 0.0-0. 2 Not Available [facility] ([facility]) [address] [place], [address], 12/06/2023 06:07:56 12/05/19 24 12/05/2023 CBC WITH DIFFE RENTI AL/PL ATELE T immature granulocytes 1 % not estab. Not Available [facility] ([facility]) [address] [place], [address], 12/06/2023 06:07:56 12/05/19 24 12/05/2023 CBC WITH DIFFE RENTI AL/PL ATELE T immature grans (abs) 0.0 x10e3 /uL 0.0-0. 1 Not Available [facility] ([facility]) [address] [facility], [place], [address], 12/06/2023 06:07:56 12/05/19 24 12/05/2023 CBC WITH DIFFE RENTI AL/PL ATELE T NRBC MAMMAL CONTROL AGENT Not Available [facility] ([facility]) [address] [facility], [place], [address], 12/06/2023 06:07:56 12/05/19 24 12/05/2023 CBC WITH DIFFE RENTI AL/PL ATELE T hematology comments: MAMMAL CONTROL AGENT Not Available [facility] ([facility]) [address] [facility], [place], [address], 12/06/2023 06:07:56 12/05/19 24 12/05/2023 BASIC METAB OLIC PANEL (8) glucose 123 mg/dL 70-99 above high normal Not Available [facility] ([facility]) [address] [facility], [place], [address], 12/06/2023 06:07:57 12/05/19 24 12/05/2023 BASIC METAB OLIC PANEL (8) BUN 13 mg/dL 8-27 Not Available [facility] ([facility]) [address] [place], [address], 12/06/2023 06:07:57 12/05/19 24 12/05/2023 BASIC METAB OLIC PANEL (8) creatinine 0.87 mg/dL 0.76-1 .27 Not Available [facility] ([facility]) [address] [place], [address], 12/06/2023 06:07:57 12/05/19 24 12/05/2023 BASIC METAB OLIC PANEL (8) eGFR 92 mL/mi n/1.7 3 >59 Not Available [facility] ([facility]) [address] [place], [address], 12/06/2023 06:07:57 12/05/19 24 12/05/2023 BASIC METAB OLIC PANEL (8) BUN/creatini ne ratio 15 10-24 Not Available [facility] ([facility]) [address] [place], [address], 12/06/2023 06:07:57 12/05/19 24 12/05/2023 BASIC METAB OLIC PANEL (8) sodium 134 mmol/ L 134-14 4 Not Available [facility] ([facility]) [address] [place], [address], 12/06/2023 06:07:57 12/05/19 24 12/05/2023 BASIC METAB OLIC PANEL (8) potassium 5.0 mmol/ L 3.5-5. 2 Not Available [facility] ([facility]) [address] [place], [address], 12/06/2023 06:07:57 12/05/19 24 12/05/2023 BASIC METAB OLIC PANEL (8) chloride 96 mmol/ L 96-106 Not Available [facility] ([facility]) [address] [place], [address], 12/06/2023 06:07:57 12/05/19 24 12/05/2023 BASIC METAB OLIC PANEL (8) carbon dioxide, total 24 mmol/ L 20-29 Not Available [facility] ([facility]) [address] [place], [address], 12/06/2023 06:07:57 12/05/19 24 12/05/2023 BASIC METAB OLIC PANEL (8) calcium 9.0 mg/dL 8.6-10 .2 Not Available [facility] ([facility]) [address] [facility], [place], [address], 12/06/2023 06:07:57 12/12/19 24 12/16/2023 [facility] NONGY N CYTO cprpt <<NOTE >> Patie nt Name: LINDA STORY MR#: [id number] Colle cted Date: 2023 Repor tyree Date: 2023 Speci men #[id number] Final Diagn osis Urine , 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 Comme nt: The above diagn ostic categ ory (HGUC ) is from [facility] Urina ry Cytol ogy, and is in keepi ng with the [facility] effor t for utili zatio n of [facility] ed diagn ostic termi nolog y in urine cytol ogy.* *[facility] Urina ry Cytol ogy. Miranda Nuñez, Seferino Go cz; 2016. Clini alba Diagn osis R31.2 9; micro scopi c hemat uria Sourc e: A: Urine NOS Macro scopi c Descr iptio n Recei rhonda: 50cc clear yello w fresh fluid for ThinP rep. Ida ctron icall y Rufina d Out Tracie Mata M.D. Test Perfo rmed by: [facility] [address] [facility], [facility] ord, [facility] [place] [address] [place] on M. Ritesh alvarez M.D., Dire tor Not Available [facility] [address] [place], [address], 12/16/2023 16:48:00 12/12/19 24 12/12/2023 urina lysis , dipst ick Leukocytes Negati ve Not Available Ct[facility]ctc[facility]_im _[address], [place], [address], 12/12/2023 07:55:09 12/12/19 24 12/12/2023 urina lysis , dipst ick Nitrite negati ve Not Available Ct_ctcma_im _[address], [place], [address], 12/12/2023 07:55:09 12/12/19 24 12/12/2023 urina lysis , dipst ick Urobilinogen Normal Not Available Ct_ct cma_im_0 [address], [place], [address], 12/12/2023 07:55:09 12/12/19 24 12/12/2023 urina lysis , dipst ick Protein Negati ve Not Available Ct_ctcma_im _[address], [place], [address], 12/12/2023 07:55:09 12/12/19 24 12/12/2023 urina lysis , dipst ick pH 6.0 Not Available Ct_ctcma_i m_0 [address], [place], [address], 12/12/2023 07:55:09 12/12/19 24 12/12/2023 urina lysis , dipst ick Blood Modera te Not Available Ct_ctcma_im _[address], [place], [address], 12/12/2023 07:55:09 12/12/19 24 12/12/2023 urina lysis , dipst ick Specific [place] 1.010 Not Available Ct_ctc ma_im_0 [address], [place], [address], 12/12/2023 07:55:09 12/12/19 24 12/12/2023 urina lysis , dipst ick Ketone Negati ve Not Available Ct_ctcma_im _[address], [place], [address], 12/12/2023 07:55:09 12/12/19 24 12/12/2023 urina lysis , dipst ick Bilirubin Negati ve Not Available Ct_ctcma_im _[address], [place], [address], 12/12/2023 07:55:09 12/12/19 24 12/12/2023 urina lysis , dipst ick Glucose Negati ve Not Available Ct_ctcma_im _[address], [place], [address], 12/12/2023 07:55:09 12/12/19 24 12/12/2023 urina lysis , dipst ick Appearance Clear Not Available Ct_ctcm a_im_0 [address], [place], [address], 12/12/2023 07:55:09 12/12/19 24 12/12/2023 urina lysis , dipst ick Color Yellow Not Available Ct_ctcma_i m_0 [address], [place], [address], 12/12/2023 07:55:09 12/12/19 24 12/12/2023 gluco se, fasti ng, finge rstic k, blood (poin t of care) glucose 94 mg/dL 65-99 Not Available Ct_ctcma_i m_0 [address], [place], [address], 12/12/2023 08:48:46 12/19/19 24 12/19/2023 COLOG UARD cologuard result reportable NEGATI VE negati ve normal NEGAT BOBBY TEST RESUL T. A negat bobby Colog uard resul t indic ates a low likel ihood that a color ectal cance r (CRC) or advan malcolm adeno ma (kristy omato us polyp s with more advan malcolm pre-m align ant featu res) is prese nt. The [facility] e that a perso n with [...] of 10,00 0 indiv idual s at sully ge risk for color ectal cance r who were scree mark with both Colog uard and colon oscop y. (Sada Donohue et al, N Engl J Med 2014; 370(1 4):12 86-12 97) The naina l value (refe rence range ) for this assay is negat bobby. COLOG UARD RE-SC REEDANIEL NG RECOM MENDA TION: Perio dic color ectal cance r scree sp is an impor tant part of preve ntive healt hcare for asymp tomat ic indiv idual s at sully ge risk for color ectal cance r. Follo wing a negat bobby Colog uard resul t, the Ameri can Cance r Socie ty and U.S. Multi -Soci ety Task Force scree sp guide lines recom mend a Colog uard re-sc reedaniel ng inter jesus of 3 years . Refer ences : Ameri can Cance r Socie ty Guide line for Color ectal Cance r Scree sp: https ://sabra w.can cer.o rg/ca ncer/ colon -rect al-ca ncer/ detec tion- diagn osis- stagi ng/ac s-rec ommen datio ns.ht ml.; Ricardo CASTILLO, Subha srivastava CR, Nawaf PeterK, Color ectal Cance r Scree sp: Recom menda tions for Physi cians and Patie nts from the U.S. Multi -Soci ety Task Force on Color ectal Cance r Jose Alberto snowden , Am Brittani robertson y 2017; 112:1 016-1 030. TEST DESCR IPTIO N: [place] site algor ithmi c jefferson sis of stool DNA-b sushil monreal with hemog lobin immun oassa y. Quant itati ve value s of indiv idual bioma rkers are not repor table and are not assoc iated with indiv idual bioma rker resul t refer ence range s. Colog uard is inten ded for color ectal cance r scree sp of adult s of eithe r sex, 45 years or older , who are at [facility] for color ectal cance r (CRC) . Colog uard has been appro rhonda for use by the U.S. FDA. The perfo rmanc e of Colog uard was estab lishe d in a cross secti onal study of [facility] adult s aged 50-84 . Colog uard perfo rmanc e in patie nts ages 45 to 49 years was estim ated by sub-g roup jefferson sis of near- age group s. Colon oscop ies perfo rmed for a posit bobby resul t may find as the most clini moses signi juan m virgen n: color ectal cance r [4.0% ], advan malcolm adeno ma (incl uding sessi le bárbara tyree polyp s great er than or equal to 1cm diame ter) [20%] or non- advan malcolm adeno ma [31%] ; or no color ectal neopl manuelito [45%] . These estim ates are deriv ed from a prosp ectiv e cross -sect ional scree sp study of 10,00 0 indiv idual s at [facility] risk for color ectal cance r who were scree mark with both Colog uard and colon oscop y. (Sada Sánchez al, N Engl J Med 2014; 370(1 [...] inter jesus is every 3 years . (Amer ican Cance r Socie ty and U.S. Multi [...] at www.c ologu matthew.c om. Not Available [facility] [address], [place], [address], 12/24/2023 21:10:39 04/15/20 24 04/15/2024 BASIC METAB OLIC PANEL (8) glucose 95 mg/dL 70-99 normal Not Available [facility] ([facility]) [address] [place], [address], 04/21/2024 14:06:35 04/15/20 24 04/15/2024 BASIC METAB OLIC PANEL (8) BUN 19 mg/dL 8-27 normal Not Available [facility] ([facility]) [address] [place], [address], 04/21/2024 14:06:35 04/15/20 24 04/15/2024 BASIC METAB OLIC PANEL (8) creatinine 0.89 mg/dL 0.76-1 .27 normal Not Available [facility] ([facility]) [address] [place], [address], 04/21/2024 14:06:35 04/15/20 24 04/15/2024 BASIC METAB OLIC PANEL (8) eGFR 91 mL/mi n/1.7 3 >59 normal Not Available [facility] ([facility]) [address] [place], [address], 04/21/2024 14:06:35 04/15/20 24 04/15/2024 BASIC METAB OLIC PANEL (8) BUN/creatini ne ratio 21 10-24 normal Not Available [facility] ([facility]) [address] [place], [address], 04/21/2024 14:06:35 04/15/20 24 04/15/2024 BASIC METAB OLIC PANEL (8) sodium 131 mmol/ L 134-14 4 below low normal Not Available [facility] ([facility]) [address] [place], [address], 04/21/2024 14:06:35 04/15/20 24 04/15/2024 BASIC METAB OLIC PANEL (8) potassium 4.5 mmol/ L 3.5-5. 2 normal Not Available [facility] ([facility]) [address] [place], [address], 04/21/2024 14:06:35 04/15/20 24 04/15/2024 BASIC METAB OLIC PANEL (8) chloride 93 mmol/ L 96-106 below low normal Not Available [facility] ([facility]) [address] [place], [address], 04/21/2024 14:06:35 04/15/20 24 04/15/2024 BASIC METAB OLIC PANEL (8) carbon dioxide, total 25 mmol/ L 20-29 normal Not Available [facility] ([facility]) [address] [place], [address], 04/21/2024 14:06:35 04/15/20 24 04/15/2024 BASIC METAB OLIC PANEL (8) calcium 9.1 mg/dL 8.6-10 .2 normal Not Available [facility] ([facility]) [address] [place], [address], 04/21/2024 14:06:35 04/15/2004/20/2024 RENIN ACTIV ITY, PLASM A renin activity, plasma 4.783 NG/mL /HR 0.167- 5.380 Not Available [facility] ([facility]) [address] [place], [address], 04/21/2024 14:06:36 04/15/2004/21/2024 ALDOS DEBORAH E LCMS, SERUM aldosterone 15.9 NG/dL 0.0-30 .0 Not Available [facility] ([facility]) [address] [place], [address], 04/21/2024 14:06:37 04/15/2004/16/2024 CORTI LEIGH ANN - AM cortisol - AM 9.1 ug/dL 6.2-19 .4 Not Available [facility] ([facility]) [address] [place], [address], 04/21/2024 14:06:37 05/08/2005/09/2024 BASIC METAB OLIC PANEL (7) glucose 135 mg/dL 70-99 above high normal Not Available [facility] ([facility]) [address] [place], [address], 05/09/2024 06:07:55 05/08/2005/09/2024 BASIC METAB OLIC PANEL (7) BUN 22 mg/dL 8-27 normal Not Available [facility] ([facility]) [address] [place], [address], 05/09/2024 06:07:55 05/08/2005/09/2024 BASIC METAB OLIC PANEL (7) creatinine 0.90 mg/dL 0.76-1 .27 normal Not Available [facility] ([facility]) [address] [place], [address], 05/09/2024 06:07:55 05/08/20 24 05/09/2024 BASIC METAB OLIC PANEL (7) eGFR 91 mL/mi n/1.7 3 >59 normal Not Available [facility] ([facility]) [address] [place], [address], 05/09/2024 06:07:55 05/08/20 24 05/09/2024 BASIC METAB OLIC PANEL (7) BUN/creatini ne ratio 24 10-24 normal Not Available [facility] ([facility]) [address] [place], [address], 05/09/2024 06:07:55 05/08/2005/09/2024 BASIC METAB OLIC PANEL (7) sodium 134 mmol/ L 134-14 4 normal Not Available [facility] ([facility]) [address] [place], [address], 05/09/2024 06:07:55 05/08/20 24 05/09/2024 BASIC METAB OLIC PANEL (7) potassium 4.5 mmol/ L 3.5-5. 2 normal Not Available [facility] ([facility]) [address] [place], [address], 05/09/2024 06:07:55 05/08/20 24 05/09/2024 BASIC METAB OLIC PANEL (7) chloride 98 mmol/ L 96-106 normal Not Available [facility] ([facility]) [address] [place], [address], 05/09/2024 06:07:55 05/08/20 24 05/09/2024 BASIC METAB OLIC PANEL (7) carbon dioxide, total 23 mmol/ L 20-29 normal Not Available [facility] ([facility]) [address] [place], [address], 05/09/2024 06:07:55 06/01/20 24 06/01/2024 HbA1c (hemo globi n A1c), blood A1c 6.2 [address], [place], [address], 06/01/2024 11:59:04 06/01/20 24 06/01/2024 gluco se, fasti ng, finge rstic k, blood ([facility]) glucose 93 mg/dL 65-[address] [facility]i m[facility]0 1 [facility] [address], [place], [address], 06/01/2024 11:33:56 02/17/20 25 02/17/2025 CBC WITH DIFFE RENTI AL/PL ATELE T WBC 6.5 x10e3 /uL 3.4-10 .8 normal Not Available [facility] ([facility]) [address] [place], [address], 02/17/2025 06:07:29 02/17/20 25 02/17/2025 CBC WITH DIFFE RENTI AL/PL ATELE T RBC 4.53 x10e6 /uL 4.14-5 .80 normal Not Available [facility] ([facility]) [address] [place], [address], 02/17/2025 06:07:29 02/17/20 25 02/17/2025 CBC WITH DIFFE RENTI AL/PL ATELE T hemoglobin 13.3 g/dL 13.0-1 7.7 normal Not Available [facility] ([facility]) [address] [place], [address], 02/17/2025 06:07:29 02/17/20 25 02/17/2025 CBC WITH DIFFE RENTI AL/PL ATELE T hematocrit 39.6 % 37.5-5 1.0 normal Not Available [facility] ([facility]) [address] [place], [address], 02/17/2025 06:07:29 02/17/20 25 02/17/2025 CBC WITH DIFFE RENTI AL/PL ATELE T MCV 87 fL 79-97 normal Not Available [facility] ([facility]) [address] [facility], [place], [address], 02/17/2025 06:07:29 02/17/20 25 02/17/2025 CBC WITH DIFFE RENTI AL/PL ATELE T MCH 29.4 pg 26.6-3 3.0 normal Not Available [facility] ([facility]) [address] [facility], [place], [address], 02/17/2025 06:07:29 02/17/2002/17/2025 CBC WITH DIFFE RENTI AL/PL ATELE T MCHC 33.6 g/dL 31.5-3 5.7 normal Not Available [facility] ([facility]) [address] [place], [address], 02/17/2025 06:07:29 02/17/20 25 02/17/2025 CBC WITH DIFFE RENTI AL/PL ATELE T RDW 12.6 % 11.6-1 5.4 Not Available [facility] ([facility]) [address] [place], [address], 02/17/2025 06:07:29 02/17/20 25 02/17/2025 CBC WITH DIFFE RENTI AL/PL ATELE T platelets 304 x10e3 /uL 150-45 0 normal Not Available [facility] ([facility]) [address] [place], [address], 02/17/2025 06:07:29 02/17/2002/17/2025 CBC WITH DIFFE RENTI AL/PL ATELE T neutrophils 73 % not estab. normal Not Available [facility] ([facility]) [address] [facility], [place], [address], 02/17/2025 06:07:29 02/17/20 25 02/17/2025 CBC WITH DIFFE RENTI AL/PL ATELE T lymphs 12 % not estab. normal Not Available [facility] ([facility]) [address] [place], [address], 02/17/2025 06:07:29 02/17/20 25 02/17/2025 CBC WITH DIFFE RENTI AL/PL ATELE T monocytes 12 % not estab. normal Not Available [facility] ([facility]) [address] [facility], [place], [address], 02/17/2025 06:07:29 02/17/20 25 02/17/2025 CBC WITH DIFFE RENTI AL/PL ATELE T eos 1 % not estab. normal Not Available [facility] ([facility]) [address] [facility], [place], [address], 02/17/2025 06:07:29 02/17/20 25 02/17/2025 CBC WITH DIFFE RENTI AL/PL ATELE T basos 1 % not estab. normal Not Available [facility] ([facility]) [address] [place], [address], 02/17/2025 06:07:29 02/17/20 25 02/17/2025 CBC WITH DIFFE RENTI AL/PL ATELE T immature cells [employer]AMM[employer]ENT Not Available [facility] ([facility]) [address] [place], [address], 02/17/2025 06:07:29 02/17/20 25 02/17/2025 CBC WITH DIFFE RENTI AL/PL ATELE T neutrophils (absolute) 4.8 x10e3 /uL 1.4-7. 0 normal Not Available [facility] ([facility]) [address] [place], [address], 02/17/2025 06:07:29 02/17/20 25 02/17/2025 CBC WITH DIFFE RENTI AL/PL ATELE T lymphs (absolute) 0.8 x10e3 /uL 0.7-3. 1 normal Not Available [facility] ([facility]) [address] [facility], [place], [address], 02/17/2025 06:07:29 02/17/20 25 02/17/2025 CBC WITH DIFFE RENTI AL/PL ATELE T monocytes(ab solute) 0.8 x10e3 /uL 0.1-0. 9 normal Not Available [facility] ([facility]) [address] [facility], [place], [address], 02/17/2025 06:07:29 02/17/20 25 02/17/2025 CBC WITH DIFFE RENTI AL/PL ATELE T eos (absolute) 0.1 x10e3 /uL 0.0-0. 4 normal Not Available [facility] ([facility]) [address] [facility], [place], [address], 02/17/2025 06:07:29 02/17/20 25 02/17/2025 CBC WITH DIFFE RENTI AL/PL ATELE T baso (absolute) 0.0 x10e3 /uL 0.0-0. 2 normal Not Available [facility] ([facility]) [address] [facility], [place], [address], 02/17/2025 06:07:29 02/17/20 25 02/17/2025 CBC WITH DIFFE RENTI AL/PL ATELE T immature granulocytes 0 % not estab. Not Available [facility] ([facility]) [address] [place], [address], 02/17/2025 06:07:29 02/17/2002/17/2025 CBC WITH DIFFE RENTI AL/PL ATELE T immature grans (abs) 0.0 x10e3 /uL 0.0-0. 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 Not Available [facility] ([facility]) [address] [facility], [place], [address], 02/17/2025 06:07:29 02/17/20 25 02/17/2025 BASIC METAB OLIC PANEL (8) glucose 125 mg/dL 70-99 above high normal Not Available [facility] ([facility]) [address] [place], [address], 02/17/2025 06:07:31 02/17/20 25 02/17/2025 BASIC METAB OLIC PANEL (8) BUN 19 mg/dL 8-27 normal Not Available [facility] ([facility]) [address] [place], [address], 02/17/2025 06:07:31 02/17/20 25 02/17/2025 BASIC METAB OLIC PANEL (8) creatinine 0.86 mg/dL 0.76-1 .27 normal Not Available [facility] ([facility]) [address] [place], [address], 02/17/2025 06:07:31 02/17/20 25 02/17/2025 BASIC METAB OLIC PANEL (8) eGFR 91 mL/mi n/1.7 3 >59 normal Not Available [facility] ([facility]) [address] [place], [address], 02/17/2025 06:07:31 02/17/20 25 02/17/2025 BASIC METAB OLIC PANEL (8) BUN/creatini ne ratio 22 10-24 normal Not Available [facility] ([facility]) [address] [place], [address], 02/17/2025 06:07:31 02/17/2002/17/2025 BASIC METAB OLIC PANEL (8) sodium 132 mmol/ L 134-14 4 below low normal Not Available [facility] ([facility]) [address] [place], [address], 02/17/2025 06:07:31 02/17/2002/17/2025 BASIC METAB OLIC PANEL (8) potassium 4.7 mmol/ L 3.5-5. 2 normal Not Available [facility] ([facility]) [address] [place], [address], 02/17/2025 06:07:31 02/17/2002/17/2025 BASIC METAB OLIC PANEL (8) chloride 95 mmol/ L 96-106 below low normal Not Available [facility] ([facility]) [address] [place], [address], 02/17/2025 06:07:31 02/17/2002/17/2025 BASIC METAB OLIC PANEL (8) carbon dioxide, total 23 mmol/ L 20-29 normal Not Available [facility] ([facility]) [address] [place], [address], 02/17/2025 06:07:31 02/17/2002/17/2025 BASIC METAB OLIC PANEL (8) calcium 8.9 mg/dL 8.6-10 .2 normal Not Available [facility] ([facility]) [address] [place], [address], 02/17/2025 06:07:31 02/17/2002/17/2025 HEMOG LOBIN A1C hemoglobin A1C 6.5 % 4.8-5. 6 above high normal Predi abete s: 5.7 - 6.4 Diabe rodrick: >6.4 Glyce rosanna contr ol for adult s with diabe rodrick: <7.0 Not Available [facility] ([facility]) [address] [facility], [place], [address], 02/17/2025 06:07:31 03/01/2003/02/2025 CBC WITH DIFFE RENTI AL/PL ATELE T WBC 6.3 x10e3 /uL 3.4-10 .8 normal Not Available [facility] ([facility]) [address] [place], [address], 03/02/2025 08:07:18 03/01/2003/02/2025 CBC WITH DIFFE RENTI AL/PL ATELE T RBC 4.67 x10e6 /uL 4.14-5 .80 normal Not Available [facility] ([facility]) [address] [facility], [place], [address], 03/02/2025 08:07:18 03/01/2003/02/2025 CBC WITH DIFFE RENTI AL/PL ATELE T hemoglobin 13.3 g/dL 13.0-1 7.7 normal Not Available [facility] ([facility]) [address] [place], [address], 03/02/2025 08:07:18 03/01/2003/02/2025 CBC WITH DIFFE RENTI AL/PL ATELE T hematocrit 41.6 % 37.5-5 1.0 normal Not Available [facility] ([facility]) [address] [place], [address], 03/02/2025 08:07:18 03/01/2003/02/2025 CBC WITH DIFFE RENTI AL/PL ATELE T MCV 89 fL 79-97 normal Not Available [facility] ([facility]) [address] [place], [address], 03/02/2025 08:07:18 03/01/2003/02/2025 CBC WITH DIFFE RENTI AL/PL ATELE T MCH 28.5 pg 26.6-3 3.0 normal Not Available [facility] ([facility]) [address] [facility], [place], [address], 03/02/2025 08:07:18 03/01/20 25 03/02/2025 CBC WITH DIFFE RENTI AL/PL ATELE T MCHC 32.0 g/dL 31.5-3 5.7 normal Not Available [facility] ([facility]) [address] [facility], [place], [address], 03/02/2025 08:07:18 03/01/20 25 03/02/2025 CBC WITH DIFFE RENTI AL/PL ATELE T RDW 12.9 % 11.6-1 5.4 Not Available [facility] ([facility]) [address] [facility], [place], [address], 03/02/2025 08:07:18 03/01/20 25 03/02/2025 CBC WITH DIFFE RENTI AL/PL ATELE T platelets 314 x10e3 /uL 150-45 0 normal Not Available [facility] ([facility]) [address] [facility], [place], [address], 03/02/2025 08:07:18 03/01/20 25 03/02/2025 CBC WITH DIFFE RENTI AL/PL ATELE T neutrophils 77 % not estab. normal Not Available [facility] ([facility]) [address] [facility], [place], [address], 03/02/2025 08:07:18 03/01/20 25 03/02/2025 CBC WITH DIFFE RENTI AL/PL ATELE T lymphs 9 % not estab. normal Not Available [facility] ([facility]) [address] [place], [address], 03/02/2025 08:07:18 03/01/20 25 03/02/2025 CBC WITH DIFFE RENTI AL/PL ATELE T monocytes 13 % not estab. normal Not Available [facility] ([facility]) [address] [facility], [place], [address], 03/02/2025 08:07:18 03/01/20 25 03/02/2025 CBC WITH DIFFE RENTI AL/PL ATELE T eos 1 % not estab. normal Not Available [facility] ([facility]) [address] [facility], [place], [address], 03/02/2025 08:07:18 03/01/20 25 03/02/2025 CBC WITH DIFFE RENTI AL/PL ATELE T basos 0 % not estab. normal Not Available [facility] ([facility]) [address] [facility], [place], [address], 03/02/2025 08:07:18 03/01/2003/02/2025 CBC WITH DIFFE RENTI AL/PL ATELE T immature cells MAMM[employer]ENT Not Available [facility] ([facility]) [address] [place], [address], 03/02/2025 08:07:18 03/01/20 25 03/02/2025 CBC WITH DIFFE RENTI AL/PL ATELE T neutrophils (absolute) 4.9 x10e3 /uL 1.4-7. 0 normal Not Available [facility] ([facility]) [address] [place], [address], 03/02/2025 08:07:18 03/01/2003/02/2025 CBC WITH DIFFE RENTI AL/PL ATELE T lymphs (absolute) 0.5 x10e3 /uL 0.7-3. 1 below low normal Not Available [facility] ([facility]) [address] [place], [address], 03/02/2025 08:07:18 03/01/2003/02/2025 CBC WITH DIFFE RENTI AL/PL ATELE T monocytes(ab solute) 0.8 x10e3 /uL 0.1-0. 9 normal Not Available [facility] ([facility]) [address] [facility], [place], [address], 03/02/2025 08:07:18 03/01/20 25 03/02/2025 CBC WITH DIFFE RENTI AL/PL ATELE T eos (absolute) 0.1 x10e3 /uL 0.0-0. 4 normal Not Available [facility] ([facility]) [address] [facility], [place], [address], 03/02/2025 08:07:18 03/01/20 25 03/02/2025 CBC WITH DIFFE RENTI AL/PL ATELE T baso (absolute) 0.0 x10e3 /uL 0.0-0. 2 normal Not Available [facility] ([facility]) [address] [facility], [place], [address], 03/02/2025 08:07:18 03/01/2003/02/2025 CBC WITH DIFFE RENTI AL/PL ATELE T immature granulocytes 0 % not estab. Not Available [facility] ([facility]) [address] [facility], [place], [address], 03/02/2025 08:07:18 03/01/20 25 03/02/2025 CBC WITH DIFFE RENTI AL/PL ATELE T immature grans (abs) 0.0 x10e3 /uL 0.0-0. 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 [email or web address] Not Available 2022 07:47:17 12/12/19 24 12/12/2023 elect rocar diogr am No observ ation record ed. [email or web address] In-Office Order Internal Use Only DO Not Attach Compendium DO Not Attach Compendium, Do Not Delete/merge, [id number] 12/12/2023 09:08:32 03/06/20 24 01/23/2024 CT, urogr [...] dose optimi zation techni ques as approp riate, variou sly includ ing the follow ing: *Autom ated [...] fillin g defect is seen in the [facility] ting system s or ureter s. BLADDE [...] superi or endpla te of L5. IMPRES INO: 1. A cause for the patien ts [...] patien t to us, Selwyn hanson MD [phone] (Elect sonia rocio Signed - 2023 12:13) Copy: MARISOL SAUCEDO MD [facility] IELD- [address] [place] [address] [phone] PATIEN T , [email or web address] [facility] ([facility]) [address] [facility] [address], [place], [address], 04/01/2024 16:07:40 12/15/19 25 elect codey vasquez am No observ ation record ed. [email or web address] Not Available 2024 18:21:39 Result Notes Documentation Provider Name and Address Organization Details Recorded Time Ct, Urogram : EXAMINATION: CT UROGRAM WITHOUT AND WITH CONTRAST CLINICAL INFORMATION: Gross Hematuria; Other Microscopic Hematuria. COMPARISON: None available. TECHNIQUE: Helical scanning was performed with collimation through the abdomen and pelvis precontrast. Helical scanning was then repeated with submillimeter collimation through the abdomen and pelvis in the pyelogram phase with use of 100 mL of Omnipaque 300 intravenous contrast. Sagittal and coronal 2-D reconstructions were obtained. Multiple additional 3-D volume rendered images were obtained of the kidneys and collecting systems on an independent workstation under concurrent supervision. This CT examination was performed using dose optimization techniques as appropriate, variously including the following: *Automated exposure control *Adjustment of mA and/or kV according to patient size (this includes techniques or standardized protocols for targeted exams where dose is matched to indication/reason for exam; i.e. extremities or head) *Use of iterative reconstruction technique DLP: 559.28 mGy-cm FINDINGS: LUNG BASES: Emphysematous changes are seen. Left basilar scarring is noted. LIVER, GALLBLADDER, AND BILIARY TREE: The liver is normal in size, shape, and attenuation. No focal hepatic lesion or biliary ductal dilatation is present. The gallbladder is unremarkable with no evidence of radiopaque gallstones, gallbladder wall thickening, or obvious pericholecystic inflammatory changes. PANCREAS: Unremarkable SPLEEN: Unremarkable ADRENAL GLANDS: There is moderate diffuse thickening of the left adrenal gland. KIDNEYS AND URETERS: Specific attention was given to the kidneys. The right kidney measures 12.0 cm in size and the left kidney measures 10.4 cm in size. The kidneys are normal in size, shape, and attenuation. No hydronephrosis, hydroureter, or calculi seen. No perinephric stranding. There is a 1.4 cm hyperattenuating cyst at the upper pole of the right kidney. Multiple benign cysts are present in the left kidney the largest at the lower pole measuring 3.7 cm. No obvious mass lesion or filling defect is seen in the collecting systems or ureters. BLADDER: Unremarkable GASTROINTESTINAL TRACT: The small and large bowel are unremarkable. The appendix is unremarkable. ABDOMINAL WALL: No significant hernia is appreciated. LYMPHOVASCULAR STRUCTURES: No lymphadenopathy. Calcific atherosclerotic changes are present in the aorta and iliofemoral vessels. There is no evidence of an abdominal aortic aneurysm. . PELVIC VISCERA: Prostate is of normal size. Fiducial markers are present. Seminal vesicles appear normal. OSSEOUS STRUCTURES: There is a compression fracture of the superior endplate of L5. IMPRESSION: 1. A cause for the patients gross hematuria has not been found. 2. Incidental note made of bilateral renal cysts which are benign and need no additional follow. 3. Incidental note made of emphysema, moderate thickening of the left adrenal gland, compression fracture superior endplate L5. Electronically signed by: Selwyn Singletary MD 03/06/2024 12:13 PM EDT Thank you for referring your patient to us, Selwyn Singletary MD [phone] (Electronically Signed - 03/06/2024 12:13) Copy: MARISOL SAUCEDO MD [address] [facility] [address] [place] [address] PATIENT , Marisol Saucedo MD [address] [place] [address], [address] [place] [address], [place], [address], [place] - [facility] 04/01/2024 16:07:40 Problems Name Problem SNOMED Code Status Onset Date Resolution Date Notes Provider Name and Address Organization Details Recorded Time Malignan t neoplasm of prostate 859514142 Active 2019 Prostate cancer Not Available [facility] 3 19:10:24 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 Not Available [facility] 3 19:10:24 Benign essentia l hyperten ino 8411755 Active 2022 Solangejoseluis Crow null, [place] - [facility] 3 10:22:26 Hypercho lesterol emia 61817191 Active 2022 Solangejoseluis Crow null, CT - [place] [facility] 3 10:22:53 Acoustic neuroma 325237925 Active 2022 Babar Rudd MD [address] [place] [address], [address] [place] [address], [phone] , [place] - [place] [facility] 3 20:07:14 Type 2 diabetes mellitus 52710602 Active 2022 Marisol Saucedo MD [address] [place] [address], [address] [place] [address], [phone] , [place] - [facility] 5 17:16:30 Microsco pic hematuri a 069703309 Active 2023 Marisol Saucedo MD [address] [place] [address], [address] [place] [address], [place], [address] , [place] [facility] 4 16:27:57 Adrenal hyperpla eber 598103483 Active 2023 Marisol Saucedo MD [address] [place] [address], [address] [place] [address], [place], [address] , [place] - [facility] 4 16:07:53 Disorder of adrenal gland 98844553 Active 2023 Marisol Saucedo MD [address] [place] [address], [facility], [place], [address] , [place] - [facility] 4 10:27:33 Hyponatr emia 01928778 Active 2023 Marisol Saucedo MD [address] [place] [address], [address] [place] [address], [place], [address] , [place] - [facility] 4 09:58:45 Renal disorder due to type 2 diabetes mellitus 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 2023 Marisol Saucedo MD [address] [place] [address], [address] [place] [address], [place], [address] , [place] - [place] [facility] 4 15:14:23 Varicell a zoster vaccinat ion declined by patient [id number] Completed 202412/14/2024 Marisol Saucedo MD [address] [place] [address], [address] [place] [address], [place], [address] , [place] [facility] 5 10:09:22 Pneumoco ccal vaccinat ion declined 919680041 Completed 202412/14/2024 Marisol Saucedo MD [address] [place] [address], [address] [place] [address], [place], [address] , [place] - [facility] 5 10:09:35 Vaccine declined by parent [id number] Completed 202412/14/2024 Mairsol Saucedo MD [address] [place] [address], [address] [place] [address], [place], [address] , [place] - [facility] 5 10:10:07 History of Disorder 081735765 Completed 202412/14/2024 Marisol Saucedo MD [address] [place] [address], [address] [place] [address], [place], [address] , [place] - [facility] 10:10:28 Prediabe rodrick 910505394 Active 2024 Marisol Saucedo MD [address] [place] [address], [address] [place] [address], [place], [address] , [place] - [facility] 17:14:37 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 Procedures Surgical History Date Name Laterality Status Provider Name and Address Organization Details Recorded Time 12/15/19 25 AWV - male prevention plan completed [facility] [facility] 12/14/2024 09:32:13 12/15/19 25 AWV - safety evaluation completed [facility] - [facility] [place] 12/14/2024 09:32:13 12/12/19 24 Advance Care Planning Consultation completed [facility] [place] 12/12/2023 07:54:47 12/12/19 24 AWV - safety evaluation completed [facility] CT - [facility] [place] 12/12/2023 07:54:47 12/12/19 24 AWV - male prevention plan completed [facility] CT - [facility] [place] 12/12/2023 07:54:47 12/07/19 23 Advance Care Planning Consultation completed Babar Rudd MD [address] [place] [address], [address] [place] [address], [address], [place] - [facility] [place] 12/06/2022 10:38:16 12/07/19 23 AWV - safety evaluation completed Babar Rudd MD [address] [place] [address], [address] [place] [address], [place], [address], CT - CT [facility] [place] 12/06/2022 10:38:16 12/07/19 23 AWV - male prevention plan completed Babar Rudd MD [address] [place] [address], [address] Floor, [place], [address], [place] - CT [facility] 12/06/2022 11:08:51 06/24/19 07 thyroidectomy completed Solangeclaire Crow CT - CT [facility] 12/06/2022 10:30:20 Prostate Surgery completed Solange Crow CT - CT [facility] 12/06/2022 10:30:01 Imaging Results None recorded. Procedure Notes None recorded. Medical Equipment None Reported. Allergies No known drug allergies Medications Name Sig Start Date Stop Date Status Note LastModified by Organization Details LastModified Time metformin 500 mg tablet TAKE ONE TABLET BY MOUTH ONCE DAILY 2024 active Not Available Not Available Not Avai lable levothyroxi ne 175 mcg tablet TAKE ONE TABLET BY MOUTH ONCE DAILY 2024 active Not Available Not Available Not Avai [...] TAKE ONE TABLET BY MOUTH ONCE DAILY 2024 active Not Available Not Available Not Avai lable amlodipine 5 mg tablet TAKE ONE TABLET BY MOUTH ONCE DAILY 2024 active Not Available Not Available Not Avai lable ciprofloxac in 500 mg tablet Take 1 [...] tablet TAKE TWO TABLETS BY MOUTH DAILY 2024 active Not Available Not Available Not Avai [...] Available Not Available Vitals Date Recorded Body mass index (BMI) Body weight Provider Name and Address Organization Details Last Updated DateTime 12/12/2023 24.3 kg/m2 31933 g Marisol Saucedo MD [address] [place] [address], [address] Floor, [place], [address], [facility] 12/12/2023 09:14:09 Date Recorded Body height Heart rate Respiratory rate Oxygen saturation Oxygen saturation in Arterial blood by Pulse oximetry Systolic And Diastolic Provider Name and Address Organization Details Last Updated DateTime 4 185.42 cm 70 /min 16 /min 98 % 98 % 142/77 mm[Hg] [facility] 4 08:48:28 Date Recorded Body height Body mass index (BMI) Body weight Respiratory rate Heart rate Oxygen saturation Oxygen saturation in Arterial blood by Pulse oximetry Systolic And Diastolic Provider Name and Address Organization Details Last Updated DateTime 5 185.42 cm 24.5 kg/m2 15757.1 8 g 16 /min 67 /min 97 % 97 % 146/80 mm[Hg] [facility] 5 09:54:55 Date Recorded Body height Respiratory rate Heart rate Oxygen saturation Oxygen saturation in Arterial blood by Pulse oximetry Body mass index (BMI) Body weight Systolic And Diastolic Provider Name and Address Organization Details Last Updated DateTime 3 185.42 cm 16 /min 63 /min 98 % 98 % 23.7 kg/m2 29792.6 3 g 140/78 mm[Hg] Solange Crow [facility] 3 11:37:44 Date Recorded Systolic And Diastolic Provider Name and Address Organization Details Last Updated DateTime 05/13/2023 138/76 mm[Hg] Babar Rudd MD [address] [place] [address], [address] Floor, [place], [address], [facility] 05/13/2023 10:21:03 Date Recorded Body height Respiratory rate Heart rate Oxygen saturation Oxygen saturation in Arterial blood by Pulse oximetry Body mass index (BMI) Body weight Systolic And Diastolic Provider Name and Address Organization Details Last Updated DateTime 3 185.42 cm 16 /min 64 /min 98 % 98 % 24.3 kg/m2 21073 g 141/78 mm[Hg] Solange Crow [facility] 3 10:04:36 Date Recorded Body height Body mass index (BMI) Body weight Respiratory rate Heart rate Oxygen saturation Oxygen saturation in Arterial blood by Pulse oximetry Systolic And Diastolic Provider Name and Address Organization Details Last Updated DateTime 4 185.42 cm 24.5 kg/m2 11114.1 8 g 16 /min 63 /min 98 % 98 % 134/76 mm[Hg] Annika Vasquez [facility] 4 11:29:48 Social History Question Answer Notes LastModified by Organizat ion Details LastModified Time Tobacco Smoking Status Former Smoker As a child Marisol Saucedo MD [address] [place] [address], [address] [place], [address] 12/12/2023 09:12:34 Do You Have An Advance Directive? Yes [email or web address] Information not available 12/06/2022 Are You Currently Sexually Active With Anyone Who Has Traveled (within The Last 12 Weeks) To A Zika-affected Area? No [email or web address] Information not available 12/06/2022 Are You Blind Or Do You Have Difficulty Seeing? No Information not available 12/06/2022 What Is Your Level Of Caffeine Consumption? Moderate Information not available 12/06/2022 Are You A Caregiver? No [email or web address] Information not available 12/06/2022 In The 14 Days Before Symptom Onset, Have You Had Close Contact With A Person Who Is Under Investigation For COVID-19 While That Person Was Ill? No [email or web address] Information not available 12/06/2022 Have You Been To An Area Known To Be High Risk For COVID-19? No Information not available 12/06/2022 Are You Deaf Or Do You Have Serious Difficulty Hearing? Yes LEFT EAR [email or web address] Information not available 12/06/2022 What Type Of Diet Are You Following? REGULAR [email or web address] Information not available 12/06/2022 How Many Days Of Moderate To Strenuous Exercise, Like A Brisk Walk, Did You Do In The Last 7 Days? 7 [email or web address] Information not available 12/06/2022 On Those Days That You Engage In Moderate To Strenuous Exercise, How Many Minutes, On Average, Do You Exercise? 90 Information not available 12/06/2022 When Did You Quit Smoking? 16+yearssinc elastcigaret te [email or web address] Information not available 12/06/2022 Are There Any Guns Present In Your Home? No [email or web address] Information not available 12/06/2022 Have You Recently Or Are You Planning To Travel To An Area With Zika Virus? No [email or web address] Information not available 12/06/2022 Do You Use Insect Repellent Routinely? No Information not available 12/06/2022 Where Do You Live? Condo [email or web address] Information not available 12/06/2022 How Long Have You Lived There? 25 [email or web address] Information not available 12/06/2022 Do You Have A Medical Power Of Shopping Investigator? Yes [email or web address] Information not available 12/06/2022 How Many Children Do You Have? 0 [email or web address] Information not available 12/06/2022 Do You Have An Out Of Hospital DNR? No [email or web address] Information not available 12/06/2022 Do You Have Any Pets? No [email or web address] Information not available 12/06/2022 Do You Use Your Seat Belt Or Car Seat Routinely? Yes [email or web address] Information not available 12/06/2022 Do You Have Smoke And Carbon Monoxide Detectors In Your Home? Yes [email or web address] Information not available 12/06/2022 Are You Passively Exposed To Smoke? No [email or web address] Information no t available 12/06/2022 Are There Any Smokers In Your House? No [email or web address] Information not available 12/06/2022 What Types Of Sporting Activities Do You Participate In? 0 [email or web address] Information not available 12/06/2022 Do You Use Sunscreen Routinely? No [email or web address] Information not available 12/06/2022 Have You Recently Traveled Abroad? No [email or web address] Information not available 12/06/2022 Do You Have Difficulty Walking Or Climbing Stairs? No [email or web address] Information not available 12/06/2022 How Many Days In The Past Year Have You Consumed 5 Or More Drinks? 0 Information no t available 12/06/2022 Sex: Unknown Functional Status Question Answer Note LastModified by Organizat ion Details LastModified Time Do you use any illicit or recreational drugs? No [email or web address] Information not available 12/06/2022 Do you or have you ever used any other forms of tobacco or nicotine? No [email or web address] Information not available 12/06/2022 What is your level of alcohol consumption? Moderate Information not available 12/06/2022 Do you have transportation difficulties? No Information not available 12/06/2022 Are you able to walk independently without assistance or assistive devices? YESWOREST [email or web address] Information not available 12/06/2022 Do you have difficulty doing errands alone? No [email or web address] Information not available 12/06/2022 Are you able to care for yourself independently? Yes Information not available 12/06/2022 Do you have difficulty dressing, bathing, grooming, or toileting? No [email or web address] Information not available 12/06/2022 What is your exercise level? Heavy Information not available 12/06/2022 Mental Status Question Answer Note LastModified by Organization D etails LastModified Time Do you feel stressed (tense, restless, nervous, or anxious, or unable to sleep at night)? [id number] [email or web address] Information not available 12/06/2022 Family History Relationship Description Onset Age of this Age Resolved Age Notes LastModified by Organization Details LastModified Time Mother Malignant neoplastic disease Unknow n type-a t age 82 y/o [email or web address] Not available 12/12/2023 09:11:49 Father Malignant neoplasm of colon suicid e [email or web address] Not available 12/12/2023 09:11:59 Sister No current problems or disability Not available 12/11 09:12:10 Notes:Problem: Colon cancer Relation: Natural father Problem: Cancer Relation: Natural mother Problem: Cancer Relation: Natural mother Problem: Colon cancer Relation: Natural father Medical History No medical history recorded. Immunizations Vaccine Type Date Status Note Provider Nam e and Address Organization Details Recorded Time COVID-19, mRNA, LNP-S, PF, 100 mcg/0.5mL dose or 50 mcg/0.25mL dose 09/01/2020 completed Not Available [facility] 16:46:13 COVID-19, mRNA, LNP-S, PF, 100 mcg/0.5mL dose or 50 mcg/0.25mL dose 08/04/2020 completed Solange [place], CT - [facility] 05/13/2023 10:04:50 Past Encounters Encounter ID Performer Location Encounter Start Date Encounter Closed Date Diagnosis/Indication Diagnosis SNOMED-CT Code Diagnosis ICD10 Code Diagnosis IMO Codes Diagnosis Note [id number] Babar Rudd MD [facility] [place] [address] [place] [address] 12/06/2022 09:56:43 12/06/2022 11:26:05 Adult health examination 723358709 Z00.00 Benign ess ential hypertension 8166409 I10 BP elevated.A dd amlodipine 5Check in 3 months Hypercholesterolemia 136 28187 E78.00 Continue atorva as scheduled Malignant neoplasm of prostate 809097854 C61 Evidence of chemical recurrence PSA IS 0.5 up from 0.00-Follo wed carefully by urology Squamous c ell carcinoma of skin 109502250 C44.92 Sees derm regularly Hypothyroidism 79177028 E03.9 TSH slightly suppressed Will repeat and lower syntyroid if needed Screening for malignant neoplasm of colon 330485513 Z12.11 Type 2 laure betes mellitus 01595693 E11.9 A1c ia 6.2Mild microalbum inuria 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 969454573 E11.21 On Valsartan Acoustic neuroma 4534536 07 D33.3 [id number] Babar Rudd MD [facility]01 [facility] [address] [place] [address] 01/17/2023 11:20:26 01/17/2023 12:17:05 Benign essential hypertension 2964861 I10 ImprovedHe will monitor at home and call if elevated Type 2 laure betes mellitus 71617651 E11.9 A1c is 6.2Mild microalbum inuria Malignant neoplasm of prostate 655389757 C61 Evidence of chemical recurrence PSA IS 0.5 up from 0.00-Follo wed carefully by urology [id number] Babar Rudd MD [facility]_ IM[facility] [place] [address] 05/13/2023 09:50:11 05/13/2023 10:40:23 Type 2 diabetes mellitus 20765660 E11.9 A1c is 6.2Mild microalbum inuria on ARB Acoustic neuroma 8201503 07 D33.3 Per ENT Hypercholesterolemia 136 46915 E78.00 Continue atorva as prescribed Benign ess ential hypertension 5117692 I10 Well controlled Malignant neoplasm of prostate 623070724 C61 Per urology [id number] Marisol Saucedo MD [facility] [place] [address] 12/12/2023 08:32:02 12/12/2023 09:45:17 Adult health examination 107046381 Z00.00 Genitourin dio disease screening 319403833 Z12.79 Screening for cardiovascular system disease 307612039 Z13.6 Type 2 laure betes mellitus 97465548 E11.9 Microscopic hematuria 19 4577010 R31.29 History of acoustic neuroma 4288806302 51880 Z86.857 [id number] Marisol Saucedo MD [facility] [place] [address] 06/01/2024 10:45:08 06/01/2024 12:11:29 Type 2 diabetes mellitus 18645814 E11.9 Diet/exerc ise History of acoustic neuroma 0048086921 66739 Z86.018 Disorder o f adrenal gland 54711546 E27.9 Labs normal [id number] Marisol Saucedo MD [facility] [place] [address] 12/14/2024 09:12:37 12/14/2024 10:40:41 Adult health examination 238982942 Z00.00 Screening for cardiovascular system disease 675993162 Z13.6 183253 Acoustic neuroma 8502641 07 D33.3 Benign ess ential hypertension 1116228 I10 Malignant neoplasm of prostate 261850736 C61 Urology follow up Squamous c ell carcinoma of skin 129220994 C44.92 Derm f/u Type 2 laure betes mellitus 54579154 E11.9 80116061 Diet/exerc ise Health Concerns Section Related Observation LastModified by Organization Detai ls LastModified Time None Recorded Concern Status LastModified by Organization Details LastModified Time None Recorded Advance Directives Directive Y: Payers Insurance Date Sequence Insurance Name Policy Number Policy Baker Covered Member ID Baker Member ID Guarantor Name 03/15/2025 2 [employer] (MEDICARE SUPPLEMENT) Linda Story [id number] Linda Story 03/15/2025 1 MEDICARE B-CT: NGS Linda Story [id number] Linda Story Notes Date Note Type Note Provider Name and Address Organization Details Recorded Time 01/17/2023 text/html ROS as noted in the HPI Feels wellAmlodipine added last visitNo polysNo neuropathic symptomsNo visual complaintsNo current balance problemsNo med side effects Babar Rudd MD [address] [place] [address], [address] [place] [address], [place], [address], [place] [facility] [place] 01/17/2023 12:13:43 05/13/2023 text/html ROS as noted in the HPI Doing wellNo recent vertigoGait mildly abnormalBalance not much a of a problemNo cardiac or pulmonary symptoms Babar Rudd MD [address] [place] [address], [facility], [place], [address], [place] [facility] [place] 05/13/2023 10:31:21 12/12/2023 text/html Medicare Annual Wellness Visit Health Risk AssessmentReported by Patient AWV-forms reviewed.\Had cataract surgery. No recent f/u for acoustic neuroma. Sees [facility] Dr Shira Mckeon for prostate. Had RT. PSA was undetectable. Now 0.5. Sees twice/year. Had hormonal rx. Needs Cologuard. Marisol Saucedo MD [address] [place] [address], [address] [place] [address], [address], CT - [facility] 12/14/2023 16:31:23 06/01/2024 text/html ROS as noted in the HPI Feels well. Had w/u. Has not had any recent f/u for acoustic neuroma history. Marisol Saucedo MD [address] [place] [address], [address] [place] [address], [place], [address], CT - [facility] 06/08/2024 15:15:00 12/14/2024 text/html Medicare Annual Wellness Visit Health Risk AssessmentReported by Patient AWV-forms reviewed. Feels well in general. Notes prior history ? sarcoid. Hearing left ear gone Never had f/u with ENT. Had vestibular therapy. Balance ok. Marisol Saucedo MD [address] [place] [address], [address] [place] [address], [place], [address], CT - [facility] 03/15/2025 15:21:30
--- OUTSIDE RECORDS SUMMARY | 2025-03-26 10:16 | XMS_ITS ---
Author Name [facility] ([place], [place]) Organization Unknown History of Medication Use Medication Directions Dispensed Refills Start Date End Date Stat metformin 500 mg tablet TAKE ONE TABLET BY MOUTH ONCE DAILY 05/06/2024 active valsartan 160 mg tablet TAKE TWO TABLETS BY MOUTH DAILY 03/03/2024 active atorvastatin 20 mg tablet TAKE ONE TABLET BY MOUTH ONCE DAILY 02/04/2024 active levothyroxine 175 mcg tablet TAKE ONE TABLET BY MOUTH ONCE DAILY 02/04/2024 active Benadryl ttco-Osznsz-Fnenbbjd -Lidocaine Visc mouth wash 1:1:1:1 Swish and spit 15 mL every 4 (four) hours as needed. 01/20/2022 active nystatin (MYCOSTATIN) 764545 UNIT/ML suspension Take 5 mL (500,000 Units total) by mouth 4 (four) times a day. 01/20/2022 active finasteride 5 mg tablet 12/06/2020 12/06/2022 completed finasteride (PROSCAR) 5 MG tablet 12/06/2020 active abiraterone 250 mg tablet Take 4 tablets (1,000 mg total) by mouth every morning on an empty stomach. 12/29/2019 12/06/2022 completed abiraterone (ZYTIGA) 250 MG tablet Take 4 tablets (1,000 mg total) by mouth every morning on an empty stomach. 12/29/2019 active bicalutamide 50 mg tablet 11/20/2019 02/05/2020 completed metFORMIN (GLUCOPHAGE) tablet 500 mg 11/05/2019 active cefuroxime axetil 250 mg tablet Take 1 tablet (250 mg total) by mouth 2 (two) times a day. Start 2 days prior to Prostate Ultrasound 04/03/2018 12/24/2019 completed ciprofloxacin 500 mg tablet Take 1 tablet (500 mg total) by mouth 2 (two) times a day. Start 2 days prior to prostate Ultrasound 04/03/2018 12/24/2019 completed valsartan (DIOVAN) tablet 160 mg 08/19/2017 active atorvastatin 80 mg tablet 08/01/2017 12/06/2022 completed levothyroxine 200 mcg tablet 08/01/2017 12/06/2022 completed atorvastatin (LIPITOR) tablet 80 mg 08/01/2017 active levothyroxine (SYNTHROID, LEVOXYL) tablet 200 mcg 08/01/2017 active nystatin 100,000 unit/mL oral suspension Take 5 mL (500,000 Units total) by mouth 4 (four) times a day. 12/06/2022 completed Paxlovid 300 mg (150 mg x 2)-100 mg tablets in a dose pack 12/06/2022 completed amlodipine 5 mg tablet TAKE ONE TABLET BY MOUTH ONCE DAILY active Klisyri 1 % topical ointment in packet Apply to red spots on left forehead and scalp once daily for 5 days, then stop. active Problems Problem Status Onset Date Problem Type Date of Resolution Source Renal disorder due to type 2 diabetes mellitus active 2024-05-24 [address] [facility] Anxiety active 2025-01-23 8 ProblemAct [facility] Disorder of adrenal gland active 2024-03-24 6 ProblemAct [facility] Other microscopic hematuria active EncounterDiagnosisAct CTTHSF RAN Squamous cell carcinoma of skin active 4 ProblemAct [facility] Prediabetes active 2024-11-23 3 ProblemAct [facility] Malignant neoplasm of prostate active 2019-11-23 0 ProblemAct [facility] Type 2 diabetes mellitus active 2022-11 5 ProblemAct [facility] Multiple actinic keratoses active 2024-11-23 8 ProblemAct [facility] Adrenal hyperplasia active 9 ProblemAct [facility] Benign essential hypertension active 2022-11-22 5 ProblemAct [facility] Hyponatremia active 2024-04-24 2 ProblemAct [facility] Hypercholesterolemia active 2022-11-22 5 ProblemAct [facility] Microscopic hematuria active 2023-11-24 7 ProblemAct [facility] Acoustic neuroma active 2022-11-23 5 ProblemAct [facility] Immunizations Vaccine Date Source Lot Number Status SARS-COV-2 (COVID-19) vaccin e, mRNA, spike protein, LNP, preservative free, 100 mcg/0.5mL dose 09/01/2020 [facility] [id number] completed SARS-COV-2 (COVID-19) vaccin e, mRNA, spike protein, LNP, preservative free, 100 mcg/0.5mL dose 08/04/2020 [facility] [id number] completed Encounters Encounter Type Encounter Reason Primary Diagnosis Location Date [facility] 12/14/2024 [facility] 12/14/2024 [facility] 12/11/2024 [facility] 07/22/2024 [facility] 06/01/2024 [facility] 01/28/2024 Ambulatory Other microscopic hematuria Other microscopic hematuria [facility] [place]12/2023 [facility] 12/12/2023 [facility] 12/12/2023 Care Team Organization Name Specialty Phone Email Start Date End [facility] 12/07/2024 [facility] 01/29/2024 [facility] 11/2301/05/2025 [facility]/14/2023 [facility] Babar [facility] 05/01/2022 024
== END 2025-03-26 10:55 | disposition home or self-care (01) ==
LOC: HO.HUSH 09:42
PROVIDERS: PCP Internal Medicine; Visit Provider Urology
DX: C61 Malignant neoplasm of prostate (principal); R31.29 Other microscopic hematuria; N30.40 Irradiation cystitis without hematuria; N40.1 Benign prostatic hyperplasia with lower urinary tract symptoms; Z13.9 Encounter for screening, unspecified
CPT/HCPCS: 52000; 99214

== ENCOUNTER 2025-04-12 11:16 | Day surgery (SDC) | payer MEDICARE, SELFPAY ==
--- OUTSIDE RECORDS SUMMARY | 2025-04-06 12:09 | XMS_ITS | Clinical Summary ---
Author Organization [facility] Address [address] [place] [address] Care Team Providers Care Truck Mechanic Apprentice Name Role Phone Babar Rudd MD Primary Care Provider [phone] Surgical History Surgery Date Site/Laterality Comments THYROIDECTOMY [...] age to complete this topic Care Teams Truck Mechanic Apprentice Relationship Specialty Start Date End Date Babar Rudd MD [address] [facility] [address] [place] [address] PCP - General Internal Medicine 04/11/16
--- OUTSIDE RECORDS SUMMARY | 2025-04-06 12:09 | XMS_ITS | Clinical Summary ---
Author Organization [facility] Address [address] [place] [address] Care Team Providers Care Technical Services Rep Name Role Phone Unavailable Primary Care Provider [...]
--- OUTSIDE RECORDS SUMMARY | 2025-04-06 12:09 | XMS_ITS | Clinical Summary ---
Author Organization [facility] Address [address] [place] [address] Care Team Providers Care Car Wiper Name Role Phone Babar Rudd MD Primary Care Provider [phone] Allergies No known active allergies Medications Medication [...] 5 MG tablet 0 12/06/2020 Active Benadryl iqre-Ipxdgt-Lcozof in-Lidocaine Visc mouth wash 1:1:1:1 Swish and spit 15 mL every 4 (four) hours as needed. 120 mL 1 01/20/2022 Active nystatin (MYCOSTATIN) 992880 UNIT/ML suspension Take 5 mL (500,000 Units [...] age to complete this topic Care Teams Car Wiper Relationship Specialty Start Date End Date Babar Rudd MD PCP - General Internal Medicine 04/11/16
--- OUTSIDE RECORDS SUMMARY | 2025-04-06 12:09 | XMS_ITS | Clinical Summary ---
Author Organization [facility] Address [address] [place], [place] [address] Phone Care Team Providers Care Mobile Home Technician Name Role Phone Babar Rudd MD Primary Care Provider [phone] Self-Referred, Patient Unavailable Unavailab Chio Figueroa MD, PhD Unavailable [phone] Teresita Marin MD Unavailable [phone] Oscar Wren MD Unavailable Allergies No known [...] VACCINE (#1) 2025 COVID-19 VACCINE (1 - 2024-2 6 season) 2025 RSV VACCINE (1 - 1-dose [...] file Insurance MEDICARE PART A & B Member Subscriber Plan / Payer (Ef fective 2016-Present) Name:Zeeshan Simpson Member ID:[id number] Relation to Subscriber:Self Name:Zeeshan Simpson Subscriber ID:[id number] Payer ID:[id number] Group ID:Not on file Type:Medicare Address: [employer] [address] MEDICARE SUPPLEMENT MEDICARE PART A & B MEDICARE SUPPLEMENT MEDICARE PART A & B [id number] [place] [address] MEDICARE SUPPLEMENT MEDICARE PART A & B [facility] MEDICARE SUPPLEMENT MEDICARE PART A & B MEDICARE SUPPLEMENT MEDICARE PART A & B MEDICARE SUPPLEMENT MEDICARE PART A & B [facility] MEDICARE SUPPLEMENT MEDICARE PART A & B [facility] MEDICARE SUPPLEMENT MEDICARE PART A & B [facility] MEDICARE SUPPLEMENT Care Teams Mobile Home Technician Relationship Specialty Start Date End Date Babar Rudd MD [address] [place] [address] PCP - General Geriatric Medicine 12/30/19 Self-Referred, Patient 12/30/19 Chio Garnica MD, PhD Sam[facility] [address] [place] [id number] [email or web address] Medical Oncology 12/30/19 Teresita Marin MD [facility] [address] [place] [phone] Primary Oncologist Medical Oncology 01/02/20 Oscar Wren MD [facility] [address] [place] [phone] Treatment Team Radiation Oncology 01/02/20 Additional Source Comments The information contained in this document represents components of the legal health record. It is not the complete legal health record.[facility]
--- NOTE | 2025-04-09 10:04 | HO.ANESPROP2 ---
Documented by User: Keely Khoury NP 04/09/25 10:04 HPI - Anesthesia Eval Consult details Narrative: 74 yr old male for Cystoscopy Bladder Fulguration PMFSH Active Problems Active Problems: All Active Problems Radiation cystitis (Acute) Microscopic hematuria (Acute) BPH loc w urin obs/LUTS (Acute) Prostate cancer (Acute) Past Medical History Medical History HTN (hypertension) Elevated PSA Surgical History Surgical History H/O thyroidectomy Social History Social History Are you a primary manager wound care to a significant other at home: No Do you presently have visiting nurse or other home services: No Patient Tobacco Use Status: Never used Tobacco Second Hand Smoke Exposure: No Use of substances other than those prescribed or required for medical reasons: No Have you been hit, kicked, punched, or otherwise hurt by someone within the past year? If so, by whom?: No Are you DNR?: No Advance Directives: No Advance Directives Information Provided: Yes Advance Directives on File: No Poor oral hygiene: No Meds Allergies Allergy/AdvReac Type Severity Reaction Status Date / Time No Known Allergies Allergy Verified 03/26/25 09:47 Home Medications ?Medication ?Instructions ?Recorded ?Confirmed ?Last Taken ?Type atorvastatin 80 mg tablet 80 mg PO DAILY 06/07/20 04/12/25 04/12/25 History escitalopram oxalate 10 mg tablet 10 mg PO DAILY 06/07/20 04/12/25 Unknown History levothyroxine 175 mcg tablet 175 mcg PO DAILY 06/07/20 04/12/25 04/12/25 History metformin 500 mg tablet 500 mg PO DAILY 06/07/20 04/12/25 04/12/25 History valsartan 160 mg tablet 160 mg PO DAILY 09/07/20 04/12/25 Unknown History atorvastatin 20 mg tablet 20 mg PO DAILY 06/05/22 04/12/25 04/12/25 History Documented by User: Nena Alvarez MD 04/12/25 14:46 PMFSH Past Medical History Medical History HTN (hypertension) Elevated PSA Family History Family history of problems with anesthesia: No Surgical History Surgical History H/O thyroidectomy History of Problems with Anesthesia: No Social History Social History Are you a primary manager wound care to a significant other at home: No Do you presently have visiting nurse or other home services: No Patient Tobacco Use Status: Never used Tobacco Second Hand Smoke Exposure: No Use of substances other than those prescribed or required for medical reasons: No Have you been hit, kicked, punched, or otherwise hurt by someone within the past year? If so, by whom?: No Are you DNR?: No Advance Directives: No Advance Directives Information Provided: Yes Advance Directives on File: No Poor oral hygiene: No Meds Allergies Allergy/AdvReac Type Severity Reaction Status Date / Time No Known Allergies Allergy Verified 03/26/25 09:47 Home Medications ?Medication ?Instructions ?Recorded ?Confirmed ?Last Taken ?Type atorvastatin 80 mg tablet 80 mg PO DAILY 06/07/20 04/12/25 04/12/25 History escitalopram oxalate 10 mg tablet 10 mg PO DAILY 06/07/20 04/12/25 Unknown History levothyroxine 175 mcg tablet 175 mcg PO DAILY 06/07/20 04/12/25 04/12/25 History metformin 500 mg tablet 500 mg PO DAILY 06/07/20 04/12/25 04/12/25 History valsartan 160 mg tablet 160 mg PO DAILY 09/07/20 04/12/25 Unknown History atorvastatin 20 mg tablet 20 mg PO DAILY 06/05/22 04/12/25 04/12/25 History Exam Airway Mallampati Class: III TM Dist: >3cm Neck ROM: Full Loose/Missing/Broken Teeth: No Heart: RRR Lungs: CTA Assessment and Plan Assessment Anesthesia Assessment: Anesthesia Plan Discussed and Chart Reviewed Final Anesthetic Review Family History of Problems with Anesthesia: No History of Problems with Anesthesia: No NPO: Yes ASA Class: II Final Preanesthetic Review: Meds/Allgs Chart Reviewed, Consent Obtained/Reviewed and Anes Risks/Benef Reviewed Patient Risk: Low Procedure Risk: Low Anesthetic Plan Anesthetic Plan: MAC: Disposition: Standard PACU
[2025-04-12 12:33] VITALS: BMI 22.9
[2025-04-12 12:44] VITALS: BP 140/65; PULSE 66; RESP 16; TEMP 36.3; O2SAT 97
[2025-04-12] MEDS: Lactated Ringers 1,000 ML 100 ML IVCONT (12:55)
[2025-04-12 12:56] LABS: Glucose, Whole Blood 121 mg/dL (60-115)
--- NOTE | 2025-04-12 16:15 | MHC.SHP ---
Pre-Procedural Eval Section A - 24 Hr Update-Section A only Date of Service: 04/12/25 The patient is an INPATIENT: No Changes since office visit: No Cold of Flu in the past 2 weeks, No New Medical Problems, No Changes in Medication and No Patient answered all questions The patient has been examined within 24 hours of the surgical procedure. The History & Physical has been completed within 30 days and I have reviewed it.: Yes Section B - Complete if H&P > 30 days Chief Complaint: Malignant neoplasm of trigone of bladder Details of Present Illness: Bladder biopsy with fulguration Allergies: Allergies Allergy/AdvReac Type Severity Reaction Status Date / Time No Known Allergies Allergy Verified 03/26/25 09:47 Plan Diagnosis/Plan: Unchanged I have reviewed the history and physical and performed a pertinent physical examination on my patient. No changes have occurred unless specified. Time Spent With Patient Time: Total time managing care of this patient today ____ minutes.
[2025-04-12 17:25] VITALS: BP 156/80; PULSE 63; RESP 18; TEMP 36.3; O2SAT 98
[2025-04-12 17:30] VITALS: BP 156/81; PULSE 68; RESP 18; O2SAT 98
[2025-04-12 17:35] VITALS: BP 142/80; PULSE 70; RESP 16; O2SAT 97
[2025-04-12 17:40] VITALS: BP 142/85; PULSE 70; RESP 16; TEMP 36.1; O2SAT 97
--- NOTE | 2025-04-12 18:34 | P.OP_ITS ---
Operative Note Operative Note Date of Service: 04/12/25 Narrative: PreOperative Diagnosis: Cytology changes setting of prior radiation for prostate cancer Post Operative Diagnosis: Red patch on posterior wall bladder proximally 4 cm Procedure: TURBT Surgeon: Dr Trae Mckeon Anesthesia: general Indications for procedure: Prior prostate radiation. Well-controlled PSA. Initial therapy completed February 2020. Cytology change found in 2023. Persistent changes on FISH 2024. CT urogram negative for upper tract disease 2023. Here for cystoscopy, bladder biopsy and removal of mucosal changes seen in office on cystoscopy Procedure: After informed consent was verified the patient was brought to the operating room and placed in a supine position. Anesthesia was administered per protocol. The patient was placed in a modified dorsal lithotomy position and prepped and draped in a sterile fashion. Safety pause time-out was performed. Antibiotics were confirmed. A 26 [place]an continuous flow resectoscope was inserted per urethra. The visual obturator was used in order to minimize potential for urethral damage. The bladder was examined. Narrow band imaging was used. Superficial mucosal changes seen. Twenty-six Venezuelan continuous flow resectoscope removed. Twenty- two Venezuelan cystoscope placed. Bladder biopsies performed on posterior aspect of bladder wall in multiple places. Continuous flow resectoscope placed. Using bipolar loop fulguration performed on extensive area. At the completion of the procedure the bladder was irrigated. The cystoscope was removed. The patient tolerated the procedure well. They were extubated in the operating room and transferred in stable condition to the recovery area. Pathology: Bladder biopsy Drains: []
== END 2025-04-12 17:48 | disposition home or self-care (01) ==
PROVIDERS: PCP Internal Medicine; Visit Provider Urology
PROC: 0T5B8ZZ Destruction of Bladder, Via Natural or Artificial Opening Endoscopic (ICD-10-PCS; CPT 52235; principal; 2025-04-12 15:50)
DX: D09.0 Carcinoma in situ of bladder (principal); C61 Malignant neoplasm of prostate; Z92.3 Personal history of irradiation; I10 Essential (primary) hypertension; Z79.899 Other long term (current) drug therapy
CPT/HCPCS: 52235; 52204; 82947; 88305; 88341; 88342; 88360; J1100; J2003; J2405; J2704; J3010

== ENCOUNTER → 2025-04-12 11:16 | Outpatient (BNV) | payer MEDICARE, SELFPAY | PROVIDERS: PCP Internal Medicine; Visit Provider Urology | DX: C61 Malignant neoplasm of prostate (principal) | CPT/HCPCS: 52235 ==

== ENCOUNTER 2025-04-22 13:23 | Outpatient (AMB) | payer MEDICARE, SELFPAY ==
--- NOTE | 2025-04-22 13:23 | A.OFFVIS_ITS ---
Intake Visit Reasons: biopsy result Intake Note: Patient is present for Telehealth Biopsy Results Heel Seat Pounder Required: No Allergies No Known Allergies Allergy (Verified 04/22/25 13:24) HPI Comments Details: Zeeshan is a very pleasant male. He is a patient of Dr Saucedo. He is seen for the following urologic conditions - prostate cancer - bladder cancer - low testosterone Following the appointment today Zeeshan asked if he could wait 2 months on bladder cancer treatment This would be acceptable however I would not defer more than six-month Telemedicine Evaluation 15 min Consultation [facility] Testosterone labs resulted Total T225 Given symptoms with lack of energy and weakness would recommend trial of testosterone gel Application discussed Follow-up testing plan Discussed bladder biopsy result Recommendation for transvesical bladder therapy induction 6 week 08/16 PSA 0.8, 01/13 0.5, 08/17 0.8, 09/15 0.5. 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 Initial therapy external beam radiation with hormones - 08/13 Prostate cancer was diagnosed 08/13 Dr Mckeon. Diagnosis was reached by needle biopsy, for elevated PSA, PSA at diagnosis 7.3 rise from 5.1 - 1 yr earlier The [place] grade is LMB , 4+4 = 8 20%, RMA , 3+3 = 6 10%, Total 30%/1200% = 2.5% Polaris evaluation 35 percentile for Group 4 TNM Classification of Malignant Tumours (TNM) T1c The D'Navi (NCCN) risk category is has 2 low risk features and 1 high risk features, group 4 Initial therapy included Primary treatment - EXBRT - completed February 2020 - with hormones and 18 months of finasteride - 09/10 GnRH 6 months, 03/03/2020 GnRH 45mg Eligard Imaging included 09/10 a bone scan NAD PSA values - 06/12 PSA 0.1, T< 3, 3 PSA 0.1, T < 3, 6 PSA <0.1, T 330, 03/14 PSA < 0.1 T 305, 06/13 <0.1 T 340, 09/12 0.1 T 321, 01/12 0.5, 06/14 0.5 PFSH Medical History HTN (hypertension) Elevated PSA Surgical History H/O thyroidectomy Social History Are you a primary managed care liaison to a significant other at home: No Do you presently have visiting nurse or other home services: No Patient Tobacco Use Status: Never used Tobacco Second Hand Smoke Exposure: No Review of Systems Const All systems reviewed & are unremarkable except as noted in HPI and below Denies chills and Denies fever(s) Card Reports no additional complaints and Denies syncope Resp Denies cough GI Denies abdominal pain and Denies heartburn Reports as per HPI and Denies change in libido Musc Reports no additional complaints Neuro Denies syncope Psych Denies change in libido Endo Denies change in libido Physical Exam Telemedicine evaluation Appropriate responses Regular breathing rate and rhythm HEENT Head: Yes normal to inspection Ears: hearing grossly normal bilaterally Eyes General: appearance normal, both eyes and all related structures Neck Neck: Yes normal visual inspection Chest Chest palpation & inspection: normal inspection of the chest Resp Effort & Inspection: normal respiratory effort and able to speak in complete sentences Telehealth Telehealth Telehealth Platform: [facility] Location of provider rendering services: practice address Location of patient: address on file Patient Identification confirmed using: Name, : Yes Telehealth method: voice only Patient verbally consented to treatment: Yes Patient verbally consented to billing insurance company: Yes Patient informed of any privacy concerns related to visit: Yes Minutes spent on Phone/Video with Pt.: 15 Assessment & Plan Assessment & Plan (1) Hypogonadism in male: Code(s): E29.1 - Testicular hypofunction Category: Medical (2) Bladder cancer: Code(s): C67.9 - Malignant neoplasm of bladder, unspecified Category: Medical Plan Start Testosterone gel Bladder immunotherapy Bladder immuno/chemotherapy was discussed today. These medications are used to create an immune reaction against bladder cancer. The intention is to destroy any tumor cells left on the bladder surface. Since BCG and gemcitabine involved immunostimulation they are not indicated in situations where there is immune weakness. Medications are placed directly into the bladder. It should be held for one to 2 hours. The toilet should be disinfected with a cap full of household bleach prior to urination. Side effects from BCG and gemcitabine generally include mucosa-related changes such as urinary urgency and/or frequency, and hematuria BCG may also invoke an infection type response. An elevated temperature may be indicative of more serious issues and should be reported to the Dr. The intention with bladder immunotherapy is to reduce the frequency of bladder cancer recurrence by 50%. Availability of BCG is highly variable. There is a single manufacture who has had difficulty with senior quality assurance analyst since 2016. Multiple protocols are available - mitomycin-C for alkalinization - 40mg/200mg in 40cc NSal - A Randomized Clinical Trial of Intravesical Instillation of Mitomycin-C and Combination of Mitomycin-C and Cytarabine (Tatyana-C) in Non-Muscle Invasive Bladder Cancer - Madie Alvarez BJU Int. 2021;129(4):534-541. doi: 10.1111/bju.21595 - Combination Gemcitabine/Docetaxel - 1gm/40mg in 100cc NSal 60 min (Intravesical gemcitabine and docetaxel in the treatment of BCG-na?ve non?muscle invasive urothelial carcinoma of the bladder: Updates from a phase 2 trial. Crossref DOI link:? https://doi.org/10.1200/JCO.2023.41.6_suppl.507 ) Will undergo - [facility] with cytarabine Medications: New testosterone apply 1 packet daily 50 mg transdermal DAILY 150 grams 2RF 30 days E29.1 - Testicular hypofunction Patient Instructions: This note is constructed using voice recognition software. While every effort has been made to ensure accuracy breaker up machine operator errors may have been included. Imaging studies, laboratory and physical exam results were discussed and reviewed in detail. No major barriers to patient understanding were identified. An opportunity to ask questions regarding the treatment plan was provided. All questions were answered. The patient expressed understanding and agreement with the above treatment plan. The patient is aware they should contact our office by phone for worsening of their current condition or the appearance of new urologic symptoms. Compliance is encouraged with any medications and followup testing that is ordered. It is a privilege to participate in the urologic care of your patient. If you have any questions or concerns regarding treatment for the above conditions, or other urologic issues, please do not hesitate to contact me. The office telephone contact is [phone]. Sincerely, Dr Trae Mckeon MD, [facility] - Urology Compassionate Specialist Care for the Genitourinary System Coding Level of Care Code Tele Est Pt Level 4 (60612) Diagnoses Hypogonadism in male E29.1 Bladder cancer C67.9
--- OUTSIDE RECORDS SUMMARY | 2025-04-22 16:28 | XMS_ITS | Clinical Summary ---
Author Organization [facility] Address [address] [place] [address] Care Team Providers Care Credit Review Officer Name Role Phone Babar Rudd MD Primary Care Provider [phone] Surgical History Surgery Date Site/Laterality Comments THYROIDECTOMY [...] Health Maintenance Due Date Last Done Comments Diabetes: Annual Foot Exam 11/12/1961 Diabetes: Annual Retina Eye Exam 11/12/1961 DTaP,Tdap,and Td Vaccines (1 - Tdap) 11/12/1970 Zoster Vaccines (1 of 2) 11/12/2001 Pneumococcal Vaccine: 50+ Years (2 of 2 - PCV) 03/06/2012 03/06/2011 Abdominal Aortic Aneurysm (AAA) Screen 05/28/2022 Cholesterol Screening (Lipid Panel) 05/28/2022 Falls Risk Assessment 05/28/2022 Hepatitis C Screening 05/28/2022 Social Influencers of Health Screening 05/28/2022 Diabetes: Annual GFR (Glomerular Filtration Rate) 01/20/2023 01/20/2022, 01/20/2022, 12/11/2019 Medicare Annual Wellness Visit 12/07/2023 12/06/2022 Depression Screening 06/24/2024 COVID-19 Vaccine (2 - 2024-2 6 season) 2025 09/01/2020 Influenza Vaccine (#1) 2025 03/06/2011 Diabetes: Annual Urine Albumin-Creatinine Ratio (uACR) 04/09/2025 Diabetes: Blood Sugar Contro l Test (HGBA1C) 04/09/2025 Hypertension/CHF/CAD Annual BMP Blood Test 04/09/2025 01/20/2022, 01/20/2022, 12/11/2019 RSV Immunization Adult Patients (1 - 1-dose 75+ series) 11/12/2026 Colorectal Cancer Screening: FIT-DNA (Cologuard) 12/18/2026 12/19/2023, 12/19/2023, 10/27/2018 HIB Vaccines Aged Out No longer eligi [...] to complete this topic RSV Immunization Patients Under 20 months Aged Out No longer eligible b ased on patient's age to complete this topic Varicella Vaccines Aged Out No longer eligible based on patient's age to complete this topic Care Teams Credit Review Officer Relationship Specialty Start Date End Date Babar Rudd MD [address] [place] [address] PCP - General Internal Medicine 04/11/16
--- OUTSIDE RECORDS SUMMARY | 2025-04-22 16:29 | XMS_ITS | Clinical Summary ---
Author Organization [facility] Address [address] [place] [address] Care Team Providers Care Manager Distribution Center Name Role Phone Unavailable Primary Care Provider [...] - 2023-2 5 season) 2025 RSV Vaccine 50 years and old er and Patients (1 - 1-dose 75+ series) 11/12/2026 Hepatitis B Vaccines Aged Out No long er eligible based on patient's age to complete this topic
--- OUTSIDE RECORDS SUMMARY | 2025-04-22 16:29 | XMS_ITS | Clinical Summary ---
Author Organization [facility] Address [address] [place], [place] [address] Phone Care Team Providers Care Tail Edger Name Role Phone Babar Rudd MD Primary Care Provider [phone] Self-Referred, Patient Unavailable Unavailab Chio Figueroa MD, PhD Unavailable [phone] Teresita Marin MD Unavailable [phone] Oscar Wren MD Unavailable Allergies No known [...] Payer (Ef fective 2016-Present) Name:Zeeshan Simpson Member ID:[id number] Relation to Subscriber:Self Name:Zeeshan Simpson Subscriber ID:[id number] Payer ID:[id number] Group ID:Not on file Type:Medicare Address: [employer] [address] MEDICARE SUPPLEMENT MEDICARE PART A & B MEDICARE SUPPLEMENT MEDICARE PART A & B [id number] [place] [address] MEDICARE SUPPLEMENT MEDICARE PART A & B [facility] MEDICARE SUPPLEMENT MEDICARE PART A & B MEDICARE SUPPLEMENT MEDICARE PART A & B MEDICARE SUPPLEMENT MEDICARE PART A & B [facility] MEDICARE SUPPLEMENT MEDICARE PART A & B [facility] MEDICARE SUPPLEMENT MEDICARE PART A & B [facility] MEDICARE SUPPLEMENT Care Teams Tail Edger Relationship Specialty Start Date End Date Babar Rudd MD [address] [place] [address] PCP - General Geriatric Medicine 12/30/19 Self-Referred, Patient 12/30/19 Chio Garnica MD, PhD Samina [facility] [address] [place] [phone] [email or web address] Medical Oncology 12/30/19 Teresita Marin MD [facility] [address] [place] [phone] Primary Oncologist Medical Oncology 01/02/20 Oscar Wren MD [facility] [address] [place] [phone] Treatment Team Radiation Oncology 01/02/20 Additional Source Comments The information contained in this document represents components of the legal health record. It is not the complete legal health record.[facility]
--- OUTSIDE RECORDS SUMMARY | 2025-04-22 16:29 | XMS_ITS | Clinical Summary ---
Author Organization [facility] Address [address] [place] [address] Care Team Providers Care Television Technician Name Role Phone Babar Rudd MD Primary Care Provider Allergies No known active allergies Medications Medication [...] 5 MG tablet 0 12/06/2020 Active Benadryl qkgo-Sngeqd-Ibeeds in-Lidocaine Visc mouth wash 1:1:1:1 Swish and spit 15 mL every 4 (four) hours as needed. 120 mL 1 01/20/2022 Active nystatin (MYCOSTATIN) 920921 UNIT/ML suspension Take 5 mL (500,000 Units [...] age to complete this topic Care Teams Television Technician Relationship Specialty Start Date End Date Babar Rudd MD PCP - General Internal Medicine 04/11/16
--- OUTSIDE RECORDS SUMMARY | 2025-04-22 16:29 | XMS_ITS | Data Portability ---
Author Organization [place] - [place] Robbieclaire Tequila contrerasicshea, [facility]_CTC[facility]_IM_[address] [place] Address [address] [place] [address] Care Team Providers [facility] Administrative Assistant Name Role Phone DELVIS MCKEON Urologist Assessment [...] IF RE EXP DATE AND CALL US [email or web address] Not available 12/12/2023 12:05:27 06/01/2024 06/01/2024 Refuses vaccines [email or web address] Not availab le 06/01/2024 12:05:23 12/14/2024 12/14/2024 Reminders 1. Have you reviewed all current prescriptions and noted which they have discontinued with the patient? 2. Have you asked the patient if they are experiencing any new or recurring issues with bladder control? 3. Have you asked the patient about their current physical fitness routine and goals? Labs [email or web address] Not available 12/14/2024 10:11:23 Plan of Treatment Reminders Order Date Submit Date Provider Last Modified By Organization Details Last Modified Time Details Appointments Follow Up 2024 10:00A M Marisol Saucedo MD Not available Not available Not available Lab HbA1c (hemoglo bin A1c), blood 2024 025 CLAUDE [facility] (Centralized Electronic Ordering - All Locations), Patient Can Go To The Location Of Their Choice, [id number] 02/17/2025 06:07:31 BMP, serum or plasma 2024 025 CLAUDE [facility] (Centralized Electronic Ordering - All Locations), Patient Can Go To The Location Of Their Choice, [id number] 02/17/2025 06:07:31 CBC w/ auto diff 2024 025 SUMERDUCK [facility] (Centralized Electronic Ordering - All Locations), Patient Can Go To The Location Of Their Choice, [id number] 02/17/2025 06:07:30 glucose, fasting, fingerst ick, blood (point of care) [address]23 [email or web address]im[facility], [address], [place], [address], 06/01/2024 11:59:25 HbA1c (hemoglo bin A1c), blood 2023 [email or web address]im[facility], [address], [place], [address], 06/01/2024 12:47:51 cytology , urine 2023 024 [facility], [address], [place], [address], 01/09/2024 09:59:48 urinalys is, complete 2023 024 [facility], [address], [place], [address], 01/09/2024 09:59:48 glucose, fasting, fingerst ick, blood (point of care) 2023 024 [address], [address], [place], [address], 12/12/2023 10:02:23 lipid panel w/ direct LDL, serum 2023 024 [facility], [address], [place], [address], 01/09/2024 09:59:48 microalb umin/cre atinine, mass ratio, urine 2023 024 [facility], [address], [place], [address], 01/09/2024 09:59:48 urinalys is, dipstick 2023 [email or web address]im[facility], [address], [address], [place], [address], 12/12/2023 10:02:23 HbA1c (hemoglo bin A1c), blood 2022 023 [email or web address] [facility], [address], [address], [place], [address], 02/14/2023 08:47:07 microalb umin, urine 2022 023 [id number] [facility], [address], [address], [place], [address], 02/14/2023 08:47:07 BMP, serum or plasma 2022 023 [email or web address] [facility], [address], [address], [place], [address], 02/14/2023 08:47:07 Referral otolaryn gologist referral - Follow up acoustic neuroma Dr Sam 2023 024 [facility], [address], [address], [place], [address], 12/16/2023 12:20:41 Procedures None recorded . Surgeries None recorded . Imaging MRI, brain + internal auditory canal, w/wo contrast - Compare to prior. Acoustic neuroma. 2024 025 CLAUDE [facility] [place], [address], [place], [address], 12/15/2024 08:40:37 electroc ardiogra m 2024 025 CLAUDE In-Office Order, Internal Use Only DO Not Attach Compendium DO Not Attach Compendium, Do Not Delete/merge, [id number] 12/18/2024 18:21:39 MRI, brain + internal auditory canal, w/wo contrast - Follow up acoustic neuroma. Contrast per radiolog ist. 2023 024 [email or web address] [facility] [place], [address] , [place], [address], 06/30/2024 08:16:48 electroc ardiogra m 2023 024 In-Office Order, Internal Use Only DO Not Attach Compendium DO Not Attach Compendium, Do Not Delete/merge, [id number] 12/12/2023 10:02:23 Medication Orders None recorded . Patient TargetsNo targets recorded. Patient Instructions Encounter Date Encounter Id Patient Instructions Last Modified By Organization Details Last Modified Time 12/12/2023 [id number] well visit, over 65: care instructions [email or web address] Not available 12/12/2023 10:02:23 preventing falls : care instructions [email or web address] Not available 12/12/2023 10:02:23 advance directiv es: care instructions [email or web address] Not available 12/12/2023 10:02:23 To promote good health please follow these recommendations: Diet, Physical Activity and Healthy Weight: -Eat a diet low in trans and saturated fats and high in fiber, fruits and vegetables -Take 0512-5056 mg of calcium through diet and supplements -Engage in regular physical activity and weight bearing exercise -Aim to achieve and maintain ideal body mass index Tobacco and Alcohol Use: -Don't smoke or use other tobacco products -Avoid excessive alcohol intake Medications: -If you use any medications (prescriptions, phdr-tir-jdgganq, supplements, herbal), always do so as directed [...] recommendations outlined in your personal wellness plan. [email or web address] Not available 12/12/2023 07:54:47 12/14/2024 [id number] well visit, over 65: care instructions [email or web address] Not available 12/14/2024 12:21:25 preventing falls : care instructions [email or web address] Not available 12/14/2024 12:21:25 advance directiv es: care instructions [email or web address] Not available 12/14/2024 12:21:25 To promote good health please follow these recommendations: Diet, Physical Activity and Healthy Weight: -Eat a diet low in trans and saturated fats and high in fiber, fruits and vegetables -Take 0085-8461 mg of calcium through diet and supplements -Engage in regular physical activity and weight bearing exercise -Aim to achieve and maintain ideal body mass index Tobacco and Alcohol Use: -Don't smoke or use other tobacco products -Avoid excessive alcohol intake Medications: -If you use any medications (prescriptions, prvu-mzp-jwvimsi, supplements, herbal), always do so as directed [...] recommendations outlined in your personal wellness plan. [email or web address] Not available 12/14/2024 09:32:13 Reason for Referral Electronic Warfare Officer Referral fo r History of acoustic neuroma Follow up acoustic neuroma Dr Sma Referring Physician: Marisol Saucedo, Internal Medicine, Encounter Date: 12/12/2023 Results Created Date Observation Date Name Description Value Unit Range Abnormal Flag Note LastModifiedBy Organization Detail LastModifiedTime 12/05/19 24 12/05/2023 TSH+F REE T4 TSH 1.090 uIU/m L 0.450- 4.500 Not Available [facility] ([facility]) [address] [place], [address], 12/06/2023 06:07:56 12/05/19 24 12/05/2023 TSH+F REE T4 T4,free(dire ct) 1.64 NG/dL 0.82-1 .77 Not Available [facility] ([facility]) [address] [place], [address], 12/06/2023 06:07:56 12/05/19 24 12/05/2023 CBC WITH DIFFE RENTI AL/PL ATELE T WBC 4.2 x10e3 /uL 3.4-10 .8 Not Available [facility] ([facility]) [address] [place], [address], 12/06/2023 06:07:56 12/05/19 24 12/05/2023 CBC WITH DIFFE RENTI AL/PL ATELE T RBC 4.81 x10e6 /uL 4.14-5 .80 Not Available [facility] ([facility]) [address] [place], [address], 12/06/2023 06:07:56 12/05/19 24 12/05/2023 CBC WITH DIFFE RENTI AL/PL ATELE T hemoglobin 13.7 g/dL 13.0-1 7.7 Not Available [facility] ([facility]) [address] [facility], [place], [address], 12/06/2023 06:07:56 12/05/19 24 12/05/2023 CBC WITH DIFFE RENTI AL/PL ATELE T hematocrit 43.5 % 37.5-5 1.0 Not Available [facility] ([facility]) [address] [facility], [place], [address], 12/06/2023 06:07:56 12/05/19 24 12/05/2023 CBC WITH DIFFE RENTI AL/PL ATELE T MCV 90 fL 79-97 Not Available [facility] ([facility]) [address] [facility], [place], [address], 12/06/2023 06:07:56 12/05/19 24 12/05/2023 CBC WITH DIFFE RENTI AL/PL ATELE T MCH 28.5 pg 26.6-3 3.0 Not Available [facility] ([facility]) [address] [facility], [place], [address], 12/06/2023 06:07:56 12/05/19 24 12/05/2023 CBC WITH DIFFE RENTI AL/PL ATELE T MCHC 31.5 g/dL 31.5-3 5.7 Not Available [facility] ([facility]) [address] [facility], [place], [address], 12/06/2023 06:07:56 12/05/19 24 12/05/2023 CBC WITH DIFFE RENTI AL/PL ATELE T RDW 12.6 % 11.6-1 5.4 Not Available [facility] ([facility]) [address] [place], [address], 12/06/2023 06:07:56 12/05/19 24 12/05/2023 CBC WITH DIFFE RENTI AL/PL ATELE T platelets 292 x10e3 /uL 150-45 0 Not Available [facility] ([facility]) [address] [facility], [place], [address], 12/06/2023 06:07:56 12/05/19 24 12/05/2023 CBC WITH DIFFE RENTI AL/PL ATELE T neutrophils 65 % not estab. Not Available [facility] ([facility]) [address] [facility], [place], [address], 12/06/2023 06:07:56 12/05/19 24 12/05/2023 CBC WITH DIFFE RENTI AL/PL ATELE T lymphs 14 % not estab. Not Available [facility] ([facility]) [address] [facility], [place], [address], 12/06/2023 06:07:56 12/05/19 24 12/05/2023 CBC WITH DIFFE RENTI AL/PL ATELE T monocytes 16 % not estab. Not Available [facility] ([facility]) [address] [facility], [place], [address], 12/06/2023 06:07:56 12/05/19 24 12/05/2023 CBC WITH DIFFE RENTI AL/PL ATELE T eos 3 % not estab. Not Available [facility] ([facility]) [address] [facility], [place], [address], 12/06/2023 06:07:56 12/05/19 24 12/05/2023 CBC WITH DIFFE RENTI AL/PL ATELE T basos 1 % not estab. Not Available [facility] ([facility]) [address] [facility], [place], [address], 12/06/2023 06:07:56 12/05/19 24 12/05/2023 CBC WITH DIFFE RENTI AL/PL ATELE T immature cells ELECTRICAL & INSTRUMENTATION SUPERVISOR Not Available [facility] ([facility]) [address] [facility], [place], [address], 12/06/2023 06:07:56 12/05/19 24 12/05/2023 CBC WITH DIFFE RENTI AL/PL ATELE T neutrophils (absolute) 2.8 x10e3 /uL 1.4-7. 0 Not Available [facility] ([facility]) [address] [place], [address], 12/06/2023 06:07:56 12/05/19 24 12/05/2023 CBC WITH DIFFE RENTI AL/PL ATELE T lymphs (absolute) 0.6 x10e3 /uL 0.7-3. 1 below low normal Not Available [facility] ([facility]) [address] [place], [address], 12/06/2023 06:07:56 12/05/19 24 12/05/2023 CBC WITH DIFFE RENTI AL/PL ATELE T monocytes(ab solute) 0.7 x10e3 /uL 0.1-0. 9 Not Available [facility] ([facility]) [address] [place], [address], 12/06/2023 06:07:56 12/05/19 24 12/05/2023 CBC WITH DIFFE RENTI AL/PL ATELE T eos (absolute) 0.1 x10e3 /uL 0.0-0. 4 Not Available [facility] ([facility]) [address] [place], [address], 12/06/2023 06:07:56 12/05/19 24 12/05/2023 CBC WITH DIFFE RENTI AL/PL ATELE T baso (absolute) 0.0 x10e3 /uL 0.0-0. 2 Not Available [facility] ([facility]) [address] [place], [address], 12/06/2023 06:07:56 12/05/19 24 12/05/2023 CBC WITH DIFFE RENTI AL/PL ATELE T immature granulocytes 1 % not estab. Not Available [facility] ([facility]) [address] [place], [address], 12/06/2023 06:07:56 12/05/19 24 12/05/2023 CBC WITH DIFFE RENTI AL/PL ATELE T immature grans (abs) 0.0 x10e3 /uL 0.0-0. 1 Not Available [facility] ([facility]) [address] [facility], [place], [address], 12/06/2023 06:07:56 12/05/19 24 12/05/2023 CBC WITH DIFFE RENTI AL/PL ATELE T NRBC ELECTRICAL & INSTRUMENTATION SUPERVISOR Not Available [facility] ([facility]) [address] [facility], [place], [address], 12/06/2023 06:07:56 12/05/19 24 12/05/2023 CBC WITH DIFFE RENTI AL/PL ATELE T hematology comments: ELECTRICAL & INSTRUMENTATION SUPERVISOR Not Available [facility] ([facility]) [address] [facility], [place], [address], 12/06/2023 06:07:56 12/05/19 24 12/05/2023 BASIC METAB OLIC PANEL (8) glucose 123 mg/dL 70-99 above high normal Not Available [facility] ([facility]) [address] [facility], [place], [address], 12/06/2023 06:07:57 12/05/19 24 12/05/2023 BASIC METAB OLIC PANEL (8) BUN 13 mg/dL 8-27 Not Available [facility] ([facility]) [address] [place], [address], 12/06/2023 06:07:57 12/05/19 24 12/05/2023 BASIC METAB OLIC PANEL (8) creatinine 0.87 mg/dL 0.76-1 .27 Not Available [facility] ([facility]) [address] [place], [address], 12/06/2023 06:07:57 12/05/19 24 12/05/2023 BASIC METAB OLIC PANEL (8) eGFR 92 mL/mi n/1.7 3 >59 Not Available [facility] ([facility]) [address] [place], [address], 12/06/2023 06:07:57 12/05/19 24 12/05/2023 BASIC METAB OLIC PANEL (8) BUN/creatini ne ratio 15 10-24 Not Available [facility] ([facility]) [address] [place], [address], 12/06/2023 06:07:57 12/05/19 24 12/05/2023 BASIC METAB OLIC PANEL (8) sodium 134 mmol/ L 134-14 4 Not Available [facility] ([facility]) [address] [place], [address], 12/06/2023 06:07:57 12/05/19 24 12/05/2023 BASIC METAB OLIC PANEL (8) potassium 5.0 mmol/ L 3.5-5. 2 Not Available [facility] ([facility]) [address] [place], [address], 12/06/2023 06:07:57 12/05/19 24 12/05/2023 BASIC METAB OLIC PANEL (8) chloride 96 mmol/ L 96-106 Not Available [facility] ([facility]) [address] [place], [address], 12/06/2023 06:07:57 12/05/19 24 12/05/2023 BASIC METAB OLIC PANEL (8) carbon dioxide, total 24 mmol/ L 20-29 Not Available [facility] ([facility]) [address] [place], [address], 12/06/2023 06:07:57 12/05/19 24 12/05/2023 BASIC METAB OLIC PANEL (8) calcium 9.0 mg/dL 8.6-10 .2 Not Available [facility] ([facility]) [address] [facility], [place], [address], 12/06/2023 06:07:57 12/12/19 24 12/16/2023 [facility] NONGY N CYTO cprpt <<NOTE >> Patie nt Name: LINDA STORY MR#: [id number] Colle cted Date: 2023 Repor tyree Date: 2023 Speci men #[id number] Final Diagn osis Urine , 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 Comme nt: The above diagn ostic categ ory (HGUC ) is from [facility] for Repor ting Urina ry Cytol ogy, and is in keepi ng with the [facility] effor t for utili zatio n of [facility] [place] ed diagn ostic termi nolog y in urine cytol ogy.* *[facility] Rep[facility] Urina ry Cytol ogy. Miranda Nuñez, Seferino Go cz; 2016. Clini alba Diagn osis R31.2 9; micro scopi c hemat uria Sourc e: A: Urine NOS Macro scopi c Descr iptio n Recei rhonda: 50cc clear yello w fresh fluid for ThinP rep. Ida ctron icall y Rufina d Out Tracie Mata M.D. Test Perfo rmed by: [facility] is [facility] tim and [facility] al [facility] r [address] [facility] and [facility] t, [facility] ord, [facility] [place] t [address] [address] on M. Ritesh alvarez M.D., Dire tor Not Available [facility] [address] [place], [address], 12/16/2023 16:48:00 12/12/19 24 12/12/2023 urina lysis , dipst ick Leukocytes Negati ve Not Available Ct_ctc[facility]_im _[address], [place], [address], 12/12/2023 07:55:09 12/12/19 24 12/12/2023 urina lysis , dipst ick Nitrite negati ve Not Available Ct_ctcma_im _[address], [place], [address], 12/12/2023 07:55:09 12/12/19 24 12/12/2023 urina lysis , dipst ick Urobilinogen Normal Not Available Ct_ct cma_im_0 [address], [place], [address], 12/12/2023 07:55:09 12/12/19 24 12/12/2023 urina lysis , dipst ick Protein Negati ve Not Available Ct_ctcma_im _[address], [place], [address], 12/12/2023 07:55:09 12/12/19 24 12/12/2023 urina lysis , dipst ick pH 6.0 Not Available [facility]_ctcma_i m_0 [address], [place], [address], 12/12/2023 07:55:09 12/12/19 24 12/12/2023 urina lysis , dipst ick Blood Modera te Not Available [facility]ctc[facility]_im _[address], [place], [address], 12/12/2023 07:55:09 12/12/19 24 12/12/2023 urina lysis , dipst ick Specific [place] 1.010 Not Available [facility]_ctc ma_im_0 [address], [place], [address], 12/12/2023 07:55:09 12/12/19 24 12/12/2023 urina lysis , dipst ick Ketone Negati ve Not Available Ct[facility]ctc[facility]_im _0 [address], [place], [address], 12/12/2023 07:55:09 12/12/19 24 12/12/2023 urina lysis , dipst ick Bilirubin Negati ve Not Available Ct[facility]ctcma_im _[address], [place], [address], 12/12/2023 07:55:09 12/12/19 24 12/12/2023 urina lysis , dipst ick Glucose Negati ve Not Available [facility]ct[facility]_im _[address], [place], [address], 12/12/2023 07:55:09 12/12/19 24 12/12/2023 urina lysis , dipst ick Appearance Clear Not Available Ct_ctcm a_im_0 [address], [place], [address], 12/12/2023 07:55:09 12/12/19 24 12/12/2023 urina lysis , dipst ick Color Yellow Not Available Ct_ctcma_i m_0 [address], [place], [address], 12/12/2023 07:55:09 12/12/19 24 12/12/2023 gluco se, fasti ng, finge rstic k, blood (poin t of care) glucose 94 mg/dL 65-99 Not Available [facility]_ctcma_i m_0 [address], [place], [address], 12/12/2023 08:48:46 12/19/19 24 12/19/2023 COLOG UARD [...] featu res) is prese nt. The [facility] e that a perso n with a [...] of 10,00 0 indiv idual s at [place] risk for color ectal cance r [...] asymp tomat ic indiv idual s at [place] risk for color ectal cance r. [...] 112:1 016-1 030. TEST DESCR IPTIO N: [place] site algor ithmi c jefferson sis of [...] years or older , who are at [facility] for color ectal cance r (CRC) . Colog uard has been appro rhonda for use by the [place] FDA. The perfo rmanc e of Colog uard was estab lishe d in a cross secti onal study of [facility] adult s aged 50-84 . Colog uard [...] of 10,00 0 indiv idual s at [facility] risk for color ectal cance r who [...] at www.c ologu matthew.c om. Not Available [facility] [address], [place], [address], 12/24/2023 21:10:39 04/15/20 24 04/15/2024 BASIC METAB OLIC PANEL (8) glucose 95 mg/dL 70-99 normal Not Available [facility] ([facility]) [address] [place], [address], 04/21/2024 14:06:35 04/15/20 24 04/15/2024 BASIC METAB OLIC PANEL (8) BUN 19 mg/dL 8-27 normal Not Available [facility] ([facility]) [address] [place], [address], 04/21/2024 14:06:35 04/15/20 24 04/15/2024 BASIC METAB OLIC PANEL (8) creatinine 0.89 mg/dL 0.76-1 .27 normal Not Available [facility] ([facility]) [address] [place], [address], 04/21/2024 14:06:35 04/15/20 24 04/15/2024 BASIC METAB OLIC PANEL (8) eGFR 91 mL/mi n/1.7 3 >59 normal Not Available [facility] ([facility]) [address] [place], [address], 04/21/2024 14:06:35 04/15/20 24 04/15/2024 BASIC METAB OLIC PANEL (8) BUN/creatini ne ratio 21 10-24 normal Not Available [facility] ([facility]) [address] [place], [address], 04/21/2024 14:06:35 04/15/20 24 04/15/2024 BASIC METAB OLIC PANEL (8) sodium 131 mmol/ L 134-14 4 below low normal Not Available [facility] ([facility]) [address] [place], [address], 04/21/2024 14:06:35 04/15/20 24 04/15/2024 BASIC METAB OLIC PANEL (8) potassium 4.5 mmol/ L 3.5-5. 2 normal Not Available [facility] ([facility]) [address] [place], [address], 04/21/2024 14:06:35 04/15/20 24 04/15/2024 BASIC METAB OLIC PANEL (8) chloride 93 mmol/ L 96-106 below low normal Not Available [facility] ([facility]) [address] [place], [address], 04/21/2024 14:06:35 04/15/20 24 04/15/2024 BASIC METAB OLIC PANEL (8) carbon dioxide, total 25 mmol/ L 20-29 normal Not Available [facility] ([facility]) [address] [place], [address], 04/21/2024 14:06:35 04/15/20 24 04/15/2024 BASIC METAB OLIC PANEL (8) calcium 9.1 mg/dL 8.6-10 .2 normal Not Available [facility] ([facility]) [address] [place], [address], 04/21/2024 14:06:35 04/15/2004/20/2024 RENIN ACTIV ITY, PLASM A renin activity, plasma 4.783 NG/mL /HR 0.167- 5.380 Not Available [facility] ([facility]) [address] [place], [address], 04/21/2024 14:06:36 04/15/2004/21/2024 ALDOS DEBORAH E LCMS, SERUM aldosterone 15.9 NG/dL 0.0-30 .0 Not Available [facility] ([facility]) [address] [place], [address], 04/21/2024 14:06:37 04/15/2004/16/2024 CORTI LEIGH ANN - AM cortisol - AM 9.1 ug/dL 6.2-19 .4 Not Available [facility] ([facility]) [address] [place], [address], 04/21/2024 14:06:37 05/08/2005/09/2024 BASIC METAB OLIC PANEL (7) glucose 135 mg/dL 70-99 above high normal Not Available [facility] ([facility]) [address] [place], [address], 05/09/2024 06:07:55 05/08/2005/09/2024 BASIC METAB OLIC PANEL (7) BUN 22 mg/dL 8-27 normal Not Available [facility] ([facility]) [address] [place], [address], 05/09/2024 06:07:55 05/08/2005/09/2024 BASIC METAB OLIC PANEL (7) creatinine 0.90 mg/dL 0.76-1 .27 normal Not Available [facility] ([facility]) [address] [place], [address], 05/09/2024 06:07:55 05/08/20 24 05/09/2024 BASIC METAB OLIC PANEL (7) eGFR 91 mL/mi n/1.7 3 >59 normal Not Available [facility] ([facility]) [address] [place], [address], 05/09/2024 06:07:55 05/08/20 24 05/09/2024 BASIC METAB OLIC PANEL (7) BUN/creatini ne ratio 24 10-24 normal Not Available [facility] ([facility]) [address] [place], [address], 05/09/2024 06:07:55 05/08/2005/09/2024 BASIC METAB OLIC PANEL (7) sodium 134 mmol/ L 134-14 4 normal Not Available [facility] ([facility]) [address] [place], [address], 05/09/2024 06:07:55 05/08/20 24 05/09/2024 BASIC METAB OLIC PANEL (7) potassium 4.5 mmol/ L 3.5-5. 2 normal Not Available [facility] ([facility]) [address] [place], [address], 05/09/2024 06:07:55 05/08/20 24 05/09/2024 BASIC METAB OLIC PANEL (7) chloride 98 mmol/ L 96-106 normal Not Available [facility] ([facility]) [address] [place], [address], 05/09/2024 06:07:55 05/08/20 24 05/09/2024 BASIC METAB OLIC PANEL (7) carbon dioxide, total 23 mmol/ L 20-29 normal Not Available [facility] ([facility]) [address] [place], [address], 05/09/2024 06:07:55 06/01/20 24 06/01/2024 HbA1c (hemo globi n A1c), blood A1c 6.2 Not Available [facility] m_0 [address], [place], [address], 06/01/2024 11:59:04 06/01/20 24 06/01/2024 gluco se, fasti ng, finge rstic k, blood (poin t of [facility]) glucose 93 mg/dL 65-99 Not Available [facility]i m_0 1 [facility] [address], [place], [address], 06/01/2024 11:33:56 02/17/20 25 02/17/2025 CBC WITH DIFFE RENTI AL/PL ATELE T WBC 6.5 x10e3 /uL 3.4-10 .8 normal Not Available [facility] ([facility]) [address] [place], [address], 02/17/2025 06:07:29 02/17/20 25 02/17/2025 CBC WITH DIFFE RENTI AL/PL ATELE T RBC 4.53 x10e6 /uL 4.14-5 .80 normal Not Available [facility] ([facility]) [address] [place], [address], 02/17/2025 06:07:29 02/17/20 25 02/17/2025 CBC WITH DIFFE RENTI AL/PL ATELE T hemoglobin 13.3 g/dL 13.0-1 7.7 normal Not Available [facility] ([facility]) [address] [place], [address], 02/17/2025 06:07:29 02/17/20 25 02/17/2025 CBC WITH DIFFE RENTI AL/PL ATELE T hematocrit 39.6 % 37.5-5 1.0 normal Not Available [facility] ([facility]) [address] [place], [address], 02/17/2025 06:07:29 02/17/20 25 02/17/2025 CBC WITH DIFFE RENTI AL/PL ATELE T MCV 87 fL 79-97 normal Not Available [facility] ([facility]) [address] [facility], [place], [address], 02/17/2025 06:07:29 02/17/20 25 02/17/2025 CBC WITH DIFFE RENTI AL/PL ATELE T MCH 29.4 pg 26.6-3 3.0 normal Not Available [facility] ([facility]) [address] [facility], [place], [address], 02/17/2025 06:07:29 02/17/2002/17/2025 CBC WITH DIFFE RENTI AL/PL ATELE T MCHC 33.6 g/dL 31.5-3 5.7 normal Not Available [facility] ([facility]) [address] [place], [address], 02/17/2025 06:07:29 02/17/20 25 02/17/2025 CBC WITH DIFFE RENTI AL/PL ATELE T RDW 12.6 % 11.6-1 5.4 Not Available [facility] ([facility]) [address] [place], [address], 02/17/2025 06:07:29 02/17/20 25 02/17/2025 CBC WITH DIFFE RENTI AL/PL ATELE T platelets 304 x10e3 /uL 150-45 0 normal Not Available [facility] ([facility]) [address] [place], [address], 02/17/2025 06:07:29 02/17/2002/17/2025 CBC WITH DIFFE RENTI AL/PL ATELE T neutrophils 73 % not estab. normal Not Available [facility] ([facility]) [address] [facility], [place], [address], 02/17/2025 06:07:29 02/17/20 25 02/17/2025 CBC WITH DIFFE RENTI AL/PL ATELE T lymphs 12 % not estab. normal Not Available [facility] ([facility]) [address] [place], [address], 02/17/2025 06:07:29 02/17/20 25 02/17/2025 CBC WITH DIFFE RENTI AL/PL ATELE T monocytes 12 % not estab. normal Not Available [facility] ([facility]) [address] [facility], [place], [address], 02/17/2025 06:07:29 02/17/20 25 02/17/2025 CBC WITH DIFFE RENTI AL/PL ATELE T eos 1 % not estab. normal Not Available [facility] ([facility]) [address] [facility], [place], [address], 02/17/2025 06:07:29 02/17/20 25 02/17/2025 CBC WITH DIFFE RENTI AL/PL ATELE T basos 1 % not estab. 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 0 normal Not Available [facility] ([facility]) [address] [place], [address], 02/17/2025 06:07:29 02/17/20 25 02/17/2025 CBC WITH DIFFE RENTI AL/PL ATELE T lymphs (absolute) 0.8 x10e3 /uL 0.7-3. 1 normal Not Available [facility] ([facility]) [address] [facility], [place], [address], 02/17/2025 06:07:29 02/17/20 25 02/17/2025 CBC WITH DIFFE RENTI AL/PL ATELE T monocytes(ab solute) 0.8 x10e3 /uL 0.1-0. 9 normal Not Available [facility] ([facility]) [address] [facility], [place], [address], 02/17/2025 06:07:29 02/17/20 25 02/17/2025 CBC WITH DIFFE RENTI AL/PL ATELE T eos (absolute) 0.1 x10e3 /uL 0.0-0. 4 normal Not Available [facility] ([facility]) [address] [facility], [place], [address], 02/17/2025 06:07:29 02/17/20 25 02/17/2025 CBC WITH DIFFE RENTI AL/PL ATELE T baso (absolute) 0.0 x10e3 /uL 0.0-0. 2 normal Not Available [facility] ([facility]) [address] [facility], [place], [address], 02/17/2025 06:07:29 02/17/20 25 02/17/2025 CBC WITH DIFFE RENTI AL/PL ATELE T immature granulocytes 0 % not estab. Not Available [facility] ([facility]) [address] [place], [address], 02/17/2025 06:07:29 02/17/2002/17/2025 CBC WITH DIFFE RENTI AL/PL ATELE T immature grans (abs) 0.0 x10e3 /uL 0.0-0. 1 Not Available [facility] ([facility]) [address] [place], [address], 02/17/2025 06:07:29 02/17/20 25 02/17/2025 CBC WITH DIFFE RENTI AL/PL ATELE T NRBC ELECTRICAL [employer] INSTRUMENTATION SUPERVISOR Not Available [facility] ([facility]) [address] [place], [address], 02/17/2025 06:07:29 02/17/20 25 02/17/2025 CBC WITH DIFFE RENTI AL/PL ATELE T hematology comments: ELECTRICAL & INSTRUMENTATION SUPERVISOR Not Available [facility] ([facility]) [address] [facility], [place], [address], 02/17/2025 06:07:29 02/17/20 25 02/17/2025 BASIC METAB OLIC PANEL (8) glucose 125 mg/dL 70-99 above high normal Not Available [facility] ([facility]) [address] [place], [address], 02/17/2025 06:07:31 02/17/20 25 02/17/2025 BASIC METAB OLIC PANEL (8) BUN 19 mg/dL 8-27 normal Not Available [facility] ([facility]) [address] [place], [address], 02/17/2025 06:07:31 02/17/20 25 02/17/2025 BASIC METAB OLIC PANEL (8) creatinine 0.86 mg/dL 0.76-1 .27 normal Not Available [facility] ([facility]) [address] [place], [address], 02/17/2025 06:07:31 02/17/20 25 02/17/2025 BASIC METAB OLIC PANEL (8) eGFR 91 mL/mi n/1.7 3 >59 normal Not Available [facility] ([facility]) [address] [place], [address], 02/17/2025 06:07:31 02/17/20 25 02/17/2025 BASIC METAB OLIC PANEL (8) BUN/creatini ne ratio 22 10-24 normal Not Available [facility] ([facility]) [address] [place] [place], [address], 02/17/2025 06:07:31 02/17/2002/17/2025 BASIC METAB OLIC PANEL (8) sodium 132 mmol/ L 134-14 4 below low normal Not Available [facility] ([facility]) [address] [place], [address], 02/17/2025 06:07:31 02/17/2002/17/2025 BASIC METAB OLIC PANEL (8) potassium 4.7 mmol/ L 3.5-5. 2 normal Not Available [facility] ([facility]) [address] [place], [address], 02/17/2025 06:07:31 02/17/2002/17/2025 BASIC METAB OLIC PANEL (8) chloride 95 mmol/ L 96-106 below low normal Not Available [facility] ([facility]) [address] [place], [address], 02/17/2025 06:07:31 02/17/2002/17/2025 BASIC METAB OLIC PANEL (8) carbon dioxide, total 23 mmol/ L 20-29 normal Not Available [facility] ([facility]) [address] [place], [address], 02/17/2025 06:07:31 02/17/2002/17/2025 BASIC METAB OLIC PANEL (8) calcium 8.9 mg/dL 8.6-10 .2 normal Not Available [facility] ([facility]) [address] [place], [address], 02/17/2025 06:07:31 02/17/2002/17/2025 HEMOG LOBIN A1C hemoglobin A1C 6.5 % 4.8-5. 6 above high normal Predi abete s: 5.7 - 6.4 Diabe rodrick: >6.4 Glyce rosanna contr ol for adult s with diabe rodrick: <7.0 Not Available [facility] ([facility]) [address] [facility], [place], [address], 02/17/2025 06:07:31 03/01/2003/02/2025 CBC WITH DIFFE RENTI AL/PL ATELE T WBC 6.3 x10e3 /uL 3.4-10 .8 normal Not Available [facility] ([facility]) [address] [place], [address], 03/02/2025 08:07:18 03/01/2003/02/2025 CBC WITH DIFFE RENTI AL/PL ATELE T RBC 4.67 x10e6 /uL 4.14-5 .80 normal Not Available [facility] ([facility]) [address] [facility], [place], [address], 03/02/2025 08:07:18 03/01/2003/02/2025 CBC WITH DIFFE RENTI AL/PL ATELE T hemoglobin 13.3 g/dL 13.0-1 7.7 normal Not Available [facility] ([facility]) [address] [place], [address], 03/02/2025 08:07:18 03/01/2003/02/2025 CBC WITH DIFFE RENTI AL/PL ATELE T hematocrit 41.6 % 37.5-5 1.0 normal Not Available [facility] ([facility]) [address] [place], [address], 03/02/2025 08:07:18 03/01/2003/02/2025 CBC WITH DIFFE RENTI AL/PL ATELE T MCV 89 fL 79-97 normal Not Available [facility] ([facility]) [address] [place], [address], 03/02/2025 08:07:18 03/01/2003/02/2025 CBC WITH DIFFE RENTI AL/PL ATELE T MCH 28.5 pg 26.6-3 3.0 normal Not Available [facility] ([facility]) [address] [facility], [place], [address], 03/02/2025 08:07:18 03/01/20 25 03/02/2025 CBC WITH DIFFE RENTI AL/PL ATELE T MCHC 32.0 g/dL 31.5-3 5.7 normal Not Available [facility] ([facility]) [address] [facility], [place], [address], 03/02/2025 08:07:18 03/01/20 25 03/02/2025 CBC WITH DIFFE RENTI AL/PL ATELE T RDW 12.9 % 11.6-1 5.4 Not Available [facility] ([facility]) [address] [facility], [place], [address], 03/02/2025 08:07:18 03/01/20 25 03/02/2025 CBC WITH DIFFE RENTI AL/PL ATELE T platelets 314 x10e3 /uL 150-45 0 normal Not Available [facility] ([facility]) [address] [facility], [place], [address], 03/02/2025 08:07:18 03/01/20 25 03/02/2025 CBC WITH DIFFE RENTI AL/PL ATELE T neutrophils 77 % not estab. normal Not Available [facility] ([facility]) [address] [facility], [place], [address], 03/02/2025 08:07:18 03/01/20 25 03/02/2025 CBC WITH DIFFE RENTI AL/PL ATELE T lymphs 9 % not estab. normal Not Available [facility] ([facility]) [address] [place], [address], 03/02/2025 08:07:18 03/01/20 25 03/02/2025 CBC WITH DIFFE RENTI AL/PL ATELE T monocytes 13 % not estab. normal Not Available [facility] ([facility]) [address] [facility], [place], [address], 03/02/2025 08:07:18 03/01/20 25 03/02/2025 CBC WITH DIFFE RENTI AL/PL ATELE T eos 1 % not estab. normal Not Available [facility] ([facility]) [address] [facility], [place], [address], 03/02/2025 08:07:18 03/01/20 25 03/02/2025 CBC WITH DIFFE RENTI AL/PL ATELE T basos 0 % not estab. normal Not Available [facility] ([facility]) [address] [facility], [place], [address], 03/02/2025 08:07:18 03/01/2003/02/2025 CBC WITH DIFFE RENTI AL/PL ATELE T immature cells ELECT[employer]ICAL [employer] INSTRUMENTATION SUPERVISOR Not Available [facility] ([facility]) [address] [place], [address], 03/02/2025 08:07:18 03/01/20 25 03/02/2025 CBC WITH DIFFE RENTI AL/PL ATELE T neutrophils (absolute) 4.9 x10e3 /uL 1.4-7. 0 normal Not Available [facility] ([facility]) [address] [place], [address], 03/02/2025 08:07:18 03/01/2003/02/2025 CBC WITH DIFFE RENTI AL/PL ATELE T lymphs (absolute) 0.5 x10e3 /uL 0.7-3. 1 below low normal Not Available [facility] ([facility]) [address] [place], [address], 03/02/2025 08:07:18 03/01/2003/02/2025 CBC WITH DIFFE RENTI AL/PL ATELE T monocytes(ab solute) 0.8 x10e3 /uL 0.1-0. 9 normal Not Available [facility] ([facility]) [address] [facility], [place], [address], 03/02/2025 08:07:18 03/01/20 25 03/02/2025 CBC WITH DIFFE RENTI AL/PL ATELE T eos (absolute) 0.1 x10e3 /uL 0.0-0. 4 normal Not Available [facility] ([facility]) [address] [facility], [place], [address], 03/02/2025 08:07:18 03/01/20 25 03/02/2025 CBC WITH DIFFE RENTI AL/PL ATELE T baso (absolute) 0.0 x10e3 /uL 0.0-0. 2 normal Not Available [facility] ([facility]) [address] [facility], [place], [address], 03/02/2025 08:07:18 03/01/2003/02/2025 CBC WITH DIFFE RENTI AL/PL ATELE T immature granulocytes 0 % not estab. Not Available [facility] ([facility]) [address] [facility], [place], [address], 03/02/2025 08:07:18 03/01/20 25 03/02/2025 CBC WITH DIFFE RENTI AL/PL ATELE T immature grans (abs) 0.0 x10e3 /uL 0.0-0. 1 Not Available [facility] ([facility]) [address] [facility], [place], [address], 03/02/2025 08:07:18 03/01/2003/02/2025 CBC WITH DIFFE RENTI AL/PL ATELE T NRBC ELECTRICAL & INSTRUMENTATION SUPERVISOR Not Available [facility] ([facility]) [address] [facility], [place], [address], 03/02/2025 08:07:18 03/01/20 25 03/02/2025 CBC WITH DIFFE RENTI AL/PL ATELE T hematology comments: ELECTRICAL & INSTRUMENTATION SUPERVISOR Not Available [facility] ([facility]) [address] [facility], [place], [address], 03/02/2025 08:07:18 03/01/2003/02/2025 TSH RFX ON ABNOR MAL TO FREE T4 TSH 3.670 uIU/m L 0.450- 4.500 normal Not Available [facility] ([facility]) [address], [place], [address], 03/02/2025 08:07:19 12/21/19 23 12/06/2022 elect rocar diogr am No observ ation record ed. [email or web address] Not Available 2022 07:47:17 12/12/19 24 12/12/2023 elect rocar diogr am No observ ation record ed. In-Office Order Internal Use Only DO Not Attach Compendium DO Not Attach Compendium, Do Not Delete/merge, [id number] 12/12/2023 09:08:32 03/06/20 24 01/23/2024 CT, urogr [...] fillin g defect is seen in the [facility] ting system s or ureter s. BLADDE [...] patien t to us, Selwyn hanson MD [id number] (Elect sonia rocio Signed - 2023 12:13) Copy: MARISOL SAUCEDO MD REILLY S [facility] IELD- [address] [facility] [place] [address] [phone] PATIEN T , [facility] ([facility]) [address] [facility] [address], [place], [address], 04/01/2024 16:07:40 12/15/19 25 elect codey vasquez am No observ ation record ed. [email or web address] Not Available 2024 18:21:39 Result Notes Documentation [...] your patient to us, Selwyn Singletary MD [id number] (Electronically Signed - 03/06/2024 12:13) Copy: MARISOL SAUCEDO MD [address] [facility] [address] [place] [address] PATIENT , Marisol Saucedo MD [address] [place] [address], [address] [place] [address], [place], [address], [place] - [facility] 04/01/2024 16:07:40 Problems Name Problem SNOMED Code Status Onset Date Resolution Date Notes Provider Name and Address Organization Details Recorded Time Malignan t neoplasm of prostate 374289219 Active 2019 Prostate cancer Not Available [facility] 3 19:10:24 Squamous cell carcinom a of skin 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 Active 2020 Recurren t squamous cell carcinom a of skin Not Available [facility] 3 19:10:24 Benign essentia l hyperten ino 3208818 Active 2022 Solangejoseluis Crow null, [place] - [facility] 3 10:22:26 Hypercho lesterol emia 82758035 Active 2022 Solangejoseluis Crow null, [place] - [facility] 3 10:22:53 Acoustic neuroma 002741397 Active 2022 Babar Rudd MD [address] [place] [address], [address] [place] [address], [address] , [place] [facility] 3 20:07:14 Type 2 diabetes mellitus 38872396 Active 2022 Marisol Saucedo MD [address] [place] [address], [address] [place] [address], [address] , [place] [facility] 5 17:16:30 Microsco pic hematuri a 049507703 Active 2023 Marisol Saucedo MD [address] [place] [address], [address] [place] [address], [place], [address] , [place] [facility] 4 16:27:57 Adrenal hyperpla eber 386862577 Active 2023 Marisol Saucedo MD [address] [place] [address], [address] [place] [address], [place], [address] , [place] - [facility] 4 16:07:53 Disorder of adrenal gland 55512915 Active 2023 Marisol Saucedo MD [address] [place] [address], [facility], [place], [address] , [place] - [facility] 4 10:27:33 Hyponatr emia 23954144 Active 2023 Marisol Saucedo MD [address] [place] [address], [address] [place] [address], [place], [address] , [place] - [facility] 4 09:58:45 Renal disorder due to type 2 diabetes mellitus 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 2023 Marisol Saucedo MD [address] [place] [address], [address] [place] [address], [place], [address] , [place] - [place] [facility] 4 15:14:23 Varicell a zoster vaccinat ion declined by patient [id number] Completed 202412/14/2024 Marisol Saucedo MD [address] [place] [address], [address] [place] [address], [place], [address] , [place] [facility] 5 10:09:22 Pneumoco ccal vaccinat ion declined 071250480 Completed 202412/14/2024 Marisol Saucedo MD [address] [place] [address], [address] [place] [address], [place], [address] , [place] - [facility] 5 10:09:35 Vaccine declined by parent [id number] Completed 202412/14/2024 Marisol Saucedo MD [address] [place] [address], [address] [place] [address], [place], [address] , [place] - [facility] 5 10:10:07 History of Disorder 456030552 Completed 202412/14/2024 Marisol Saucedo MD [address] [place] [address], [address] [place] [address], [place], [address] , [place] - [facility] 10:10:28 Prediabe rodrick 793271753 Active 2024 Marisol Saucedo MD [address] [place] [address], [address] [place] [address], [place], [address] , [place] - [facility] 17:14:37 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 Procedures Surgical History Date Name Laterality Status Provider Name and Address Organization Details Recorded Time 12/15/19 25 AWV - male prevention plan completed [facility] 12/14/2024 09:32:13 12/15/19 25 AWV - safety evaluation completed [facility] - [facility] 12/14/2024 09:32:13 12/12/19 24 Advance Care Planning Consultation completed [facility] 12/12/2023 07:54:47 12/12/19 24 AWV - safety evaluation completed [facility] CT - [facility] 12/12/2023 07:54:47 12/12/19 24 AWV - male prevention plan completed [facility] CT - [facility] 12/12/2023 07:54:47 12/07/19 23 Advance Care Planning Consultation completed Babar Rudd MD [address] [place] [address], [address] [place] [address], [address], [place] - [facility] 12/06/2022 10:38:16 12/07/19 23 AWV - safety evaluation completed Babar Rudd MD [address] [place] [address], [address] [place] [address], [place], [address], CT - [facility] 12/06/2022 10:38:16 12/07/19 23 AWV - male prevention plan completed Babar Rudd MD [address] [place] [address], [address] Floor, [place], [address], [place] - [facility] 12/06/2022 11:08:51 06/24/19 07 thyroidectomy completed Solangeclaire Crow CT - [facility] 12/06/2022 10:30:20 Prostate Surgery completed Solange Crow CT - [facility] 12/06/2022 10:30:01 Imaging Results None recorded. [...] Details Last Updated DateTime 12/12/2023 24.3 kg/m2 47777 g Marisol Saucedo MD [address] [place] [address], [address] Floor, [place], [address], [facility] 12/12/2023 09:14:09 Date Recorded Body height Heart rate Respiratory rate Oxygen saturation Oxygen saturation in Arterial blood by Pulse oximetry Systolic And Diastolic Provider Name and Address Organization Details Last Updated DateTime 4 185.42 cm 70 /min 16 /min 98 % 98 % 142/77 mm[Hg] [facility] 4 08:48:28 Date Recorded Body height Body mass index (BMI) Body weight Respiratory rate Heart rate Oxygen saturation Oxygen saturation in Arterial blood by Pulse oximetry Systolic And Diastolic Provider Name and Address Organization Details Last Updated DateTime 5 185.42 cm 24.5 kg/m2 37639.1 8 g 16 /min 67 /min 97 % 97 % 146/80 mm[Hg] [facility] 5 09:54:55 Date Recorded Body height Respiratory rate Heart rate Oxygen saturation Oxygen saturation in Arterial blood by Pulse oximetry Body mass index (BMI) Body weight Systolic And Diastolic Provider Name and Address Organization Details Last Updated DateTime 3 185.42 cm 16 /min 63 /min 98 % 98 % 23.7 kg/m2 33534.6 3 g 140/78 mm[Hg] Solange Crow [facility] 3 11:37:44 Date Recorded Systolic And Diastolic Provider Name and Address Organization Details Last Updated DateTime 05/13/2023 138/76 mm[Hg] Babar Rudd MD [address] [place] [address], [address] Floor, [place], [address], [facility] 05/13/2023 10:21:03 Date Recorded Body height Respiratory rate Heart rate Oxygen saturation Oxygen saturation in Arterial blood by Pulse oximetry Body mass index (BMI) Body weight Systolic And Diastolic Provider Name and Address Organization Details Last Updated DateTime 3 185.42 cm 16 /min 64 /min 98 % 98 % 24.3 kg/m2 58172 g 141/78 mm[Hg] Solange Crow [facility] 3 10:04:36 Date Recorded Body height Body mass index (BMI) Body weight Respiratory rate Heart rate Oxygen saturation Oxygen saturation in Arterial blood by Pulse oximetry Systolic And Diastolic Provider Name and Address Organization Details Last Updated DateTime 4 185.42 cm 24.5 kg/m2 27521.1 8 g 16 /min 63 /min 98 % 98 % 134/76 mm[Hg] Annika Vasquez [facility] 4 11:29:48 Social History Question Answer Notes LastModified by Organizat ion Details LastModified Time Tobacco Smoking Status Former Smoker As a child Marisol Saucedo MD [address] [place] [address], [address] [place], [address] 12/12/2023 09:12:34 Do You Have An Advance Directive? Yes [email or web address] Information not available 12/06/2022 Are You Currently Sexually Active With Anyone Who Has Traveled (within The Last 12 Weeks) To A Zika-affected Area? No [email or web address] Information not available 12/06/2022 Are You Blind Or Do You Have Difficulty Seeing? No [email or web address] Information not available 12/06/2022 What Is Your Level Of Caffeine Consumption? Moderate [email or web address] Information not available 12/06/2022 Are You A Caregiver? No Information not available 12/06/2022 In The 14 Days Before Symptom Onset, Have You Had Close Contact With A Person Who Is Under Investigation For COVID-19 While That Person Was Ill? No [email or web address] Information not available 12/06/2022 Have You Been To An Area Known To Be High Risk For COVID-19? No [email or web address] Information not available 12/06/2022 Are You Deaf Or Do You Have Serious Difficulty Hearing? Yes LEFT EAR [email or web address] Information not available 12/06/2022 What Type Of Diet Are You Following? REGULAR [email or web address] Information not available 12/06/2022 How Many Days Of Moderate To Strenuous Exercise, Like A Brisk Walk, Did You Do In The Last 7 Days? 7 [email or web address] Information not available 12/06/2022 On Those Days That You Engage In Moderate To Strenuous Exercise, How Many Minutes, On Average, Do You Exercise? 90 [email or web address] Information not available 12/06/2022 When Did You Quit Smoking? 16+yearssinc [email or web address] te Information not available 12/06/2022 Are There Any Guns Present In Your Home? No [email or web address] Information not available 12/06/2022 Have You Recently Or Are You Planning To Travel To An Area With Zika Virus? No [email or web address] Information not available 12/06/2022 Do You Use Insect Repellent Routinely? No [email or web address] Information not available 12/06/2022 Where Do You Live? [place] [email or web address] Information not available 12/06/2022 How Long Have You Lived There? 25 [email or web address] Information not available 12/06/2022 Do You Have A Medical Power Of Health Care Law Specialist? Yes [email or web address] Information not available 12/06/2022 How Many Children Do You Have? 0 Information not available 12/06/2022 Do You Have An Out Of Hospital DNR? No [email or web address] Information not available 12/06/2022 Do You Have Any Pets? No [email or web address] Information not available 12/06/2022 Do You Use Your Seat Belt Or Car Seat Routinely? Yes [email or web address] Information not available 12/06/2022 Do You Have Smoke And Carbon Monoxide Detectors In Your Home? Yes [email or web address] Information not available 12/06/2022 Are You Passively Exposed To Smoke? No [email or web address] Information no t available 12/06/2022 Are There Any Smokers In Your House? No [email or web address] Information not available 12/06/2022 What Types Of Sporting Activities Do You Participate In? 0 [email or web address] Information not available 12/06/2022 Do You Use Sunscreen Routinely? No [email or web address] Information not available 12/06/2022 Have You Recently Traveled Abroad? No [email or web address] Information not available 12/06/2022 Do You Have Difficulty Walking Or Climbing Stairs? No [email or web address] Information not available 12/06/2022 How Many Days In The Past Year Have You Consumed 5 Or More Drinks? 0 [email or web address] Information no t available 12/06/2022 Sex: Unknown Functional Status Question Answer Note LastModified by Organizat ion Details LastModified Time Do you use any illicit or recreational drugs? No [email or web address] Information not available 12/06/2022 Do you or have you ever used any other forms of tobacco or nicotine? No [email or web address] Information not available 12/06/2022 What is your level of alcohol consumption? Moderate [email or web address] Information not available 12/06/2022 Do you have transportation difficulties? No [email or web address] Information not available 12/06/2022 Are you able to walk independently without assistance or assistive devices? YESWOREST [email or web address] Information not available 12/06/2022 Do you have difficulty doing errands alone? No [email or web address] Information not available 12/06/2022 Are you able to care for yourself independently? Yes [email or web address] Information not available 12/06/2022 Do you have difficulty dressing, bathing, grooming, or toileting? No [email or web address] Information not available 12/06/2022 What is your exercise level? Heavy [email or web address] Information not available 12/06/2022 Mental Status Question Answer Note LastModified by Organization D etails LastModified Time Do you feel stressed (tense, restless, nervous, or anxious, or unable to sleep at night)? [id number] [email or web address] Information not available 12/06/2022 Family History Relationship Description Onset Age of this Age Resolved Age Notes LastModified by Organization Details LastModified Time Mother Malignant neoplastic disease Unknow n type-a t age 82 y/o Not available 12/12/2023 09:11:49 Father Malignant neoplasm of colon suicid e [email or web address] Not available 12/12/2023 09:11:59 Sister No current problems or disability [email or web address] Not available 12/11 09:12:10 Notes:Problem: Colon cancer Relation: Natural father Problem: Cancer Relation: Natural mother Problem: Cancer Relation: Natural mother Problem: Colon cancer Relation: Natural father Medical History No medical history recorded. Immunizations Vaccine Type Date Status Note Provider Nam e and Address Organization Details Recorded Time COVID-19, mRNA, LNP-S, PF, 100 mcg/0.5mL dose or 50 mcg/0.25mL dose 09/01/2020 completed Not Available [facility] 16:46:13 COVID-19, mRNA, LNP-S, PF, 100 mcg/0.5mL dose or 50 mcg/0.25mL dose 08/04/2020 completed Solange clifton, [place] - [facility] 05/13/2023 10:04:50 Past Encounters Encounter ID Performer Location Encounter Start Date Encounter Closed Date Diagnosis/Indication Diagnosis SNOMED-CT Code Diagnosis ICD10 Code Diagnosis IMO Codes Diagnosis Note [id number] Babar Rudd MD [facility] [place] [address] [place] [address] 12/06/2022 09:56:43 12/06/2022 11:26:05 Adult health examination 092566643 Z00.00 Benign ess ential hypertension 3624073 I10 BP elevated.A dd amlodipine 5Check in 3 months Hypercholesterolemia 136 90914 E78.00 Continue atorva as scheduled Malignant neoplasm of prostate 291347203 C61 Evidence of chemical recurrence PSA IS 0.5 up from 0.00-Follo wed carefully by urology Squamous c ell carcinoma of skin 938048912 C44.92 Sees derm regularly Hypothyroidism 66273624 E03.9 TSH slightly suppressed Will repeat and lower syntyroid if needed Screening for malignant neoplasm of colon 389837481 Z12.11 Type 2 laure betes mellitus 98647816 E11.9 A1c ia 6.2Mild microalbum inuria 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 026078587 E11.21 On Valsartan Acoustic neuroma 4923473 07 D33.3 [id number] Babar Rudd MD [facility] [employer] [address] [place] [address] 01/17/2023 11:20:26 01/17/2023 12:17:05 Benign essential hypertension 7492218 I10 ImprovedHe will monitor at home and call if elevated Type 2 laure betes mellitus 95821868 E11.9 A1c is 6.2Mild microalbum inuria Malignant neoplasm of prostate 465989934 C61 Evidence of chemical recurrence PSA IS 0.5 up from 0.00-Follo wed carefully by urology [id number] Babar Rudd MD [facility] [place] [address] 05/13/2023 09:50:11 05/13/2023 10:40:23 Type 2 diabetes mellitus 36261130 E11.9 A1c is 6.2Mild microalbum inuria on ARB Acoustic neuroma 4139323 07 D33.3 Per ENT Hypercholesterolemia 136 13798 E78.00 Continue atorva as prescribed Benign ess ential hypertension 8542175 I10 Well controlled Malignant neoplasm of prostate 462225891 C61 Per urology [id number] Marisol Saucedo MD [facility] [place] [address] 12/12/2023 08:32:02 12/12/2023 09:45:17 Adult health examination 894580183 Z00.00 Genitourin dio disease screening 395813891 Z12.79 Screening for cardiovascular system disease 618536310 Z13.6 Type 2 laure betes mellitus 96732288 E11.9 Microscopic hematuria 19 3327432 R31.29 History of acoustic neuroma 1398605367 53869 Z86.119 [id number] Marisol Saucedo MD [facility] 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 48872810 Diet/exerc ise Health Concerns Section Related Observation LastModified by Organization Detai ls LastModified Time None Recorded Concern Status LastModified by Organization Details LastModified Time None Recorded Advance Directives Directive Y: Payers Insurance Date Sequence Insurance Name Policy Number Policy Baker Covered Member ID Baker Member ID Guarantor Name 03/15/2025 2 [employer] (MEDICARE SUPPLEMENT) Linda Story [id number] Linda Story 03/15/2025 1 MEDICARE B-CT: NGS Linda Story [id number] Linda Story Notes Date Note Type Note Provider Name and Address Organization Details Recorded Time 01/17/2023 text/html ROS as noted in the HPI Feels wellAmlodipine added last visitNo polysNo neuropathic symptomsNo visual complaintsNo current balance problemsNo med side effects Babar Rudd MD [address] [place] [address], [address] [place] [address], [place], [phone], [place] [facility] [place] 01/17/2023 12:13:43 05/13/2023 text/html ROS as noted in the HPI Doing wellNo recent vertigoGait mildly abnormalBalance not much a of a problemNo cardiac or pulmonary symptoms Babar Rudd MD [address] [place] [address], [facility], [place], [address], [place] [facility] [place] 05/13/2023 10:31:21 12/12/2023 text/html Medicare Annual Wellness Visit Health Risk AssessmentReported by Patient AWV-forms reviewed.\Had cataract surgery. No recent f/u for acoustic neuroma. Sees [facility] Dr Shira Mckeon for prostate. Had RT. PSA was undetectable. Now 0.5. Sees twice/year. Had hormonal rx. Needs Cologuard. Marisol Saucedo MD [address] [place] [address], [address] [place] [address], [phone], [place] [facility] 12/14/2023 16:31:23 06/01/2024 text/html ROS as noted in the HPI Feels well. Had w/u. Has not had any recent f/u for acoustic neuroma history. Marisol Saucedo MD [address] [place] [address], [address] [place] [address], [place], [phone], [place] [facility] 06/08/2024 15:15:00 12/14/2024 text/html Medicare Annual Wellness Visit Health Risk AssessmentReported by Patient AWV-forms reviewed. Feels well in general. Notes prior history ? sarcoid. Hearing left ear gone Never had f/u with ENT. Had vestibular therapy. Balance ok. Marisol Saucedo MD [address] [place] [address], [address] [place] [address], [place], [phone], [place] [facility] 03/15/2025 15:21:30
== END 2025-04-22 16:42 | disposition home or self-care (01) ==
LOC: HO.HUSH 13:23
PROVIDERS: PCP Internal Medicine; Visit Provider Urology
DX: E29.1 Testicular hypofunction (principal); C67.9 Malignant neoplasm of bladder, unspecified
CPT/HCPCS: 99214